=== PATIENT | female | born 1985 | race Caucasian/White ===

== ENCOUNTER 2016-09-13 19:28 | Observation (INO) | payer BC ==
[2016-09-13] MEDS ORDERED: NS 0.9% 1000 ML* 1,000 ML IV ONE (21:00)
[2016-09-13] MEDS ORDERED: Ondansetron INJ* 2 MG/ML VIAL IV ONE (21:00)
[2016-09-13] MEDS ORDERED: Morphine INJ* 4 MG/ML 1 ML CARPUJECT IV ONE (21:00)
[2016-09-13 21:18] LABS: Hematocrit 42 % (35-47); Hemoglobin 13.8 g/dl (12.0-16.0); Mean Corpuscular HGB Conc 33 g/dl (31-36); Mean Corpuscular Hemoglobin 29 pg (27-31); Mean Corpuscular Volume 90 fL (80-97); Mean Platelet Volume 10 um3 (7.4-10.4); Red Blood Count 4.71 10^6/ul (4.0-5.4); Red Cell Distribution Width 13 % (10.5-15); White Blood Count 10.7 10^3/ul (3.5-10.8)
[2016-09-13 21:30] LABS: ALT 56 U/L (7-52); AST 35 U/L (13-39); Albumin 4.4 g/dL (3.2-5.2); Alkaline Phosphatase 52 U/L (34-104); Amylase 23 U/L (29-103); Anion Gap 8 mmol/L (2-11); BUN/Creatinine Ratio 12.3 (8-20); Blood Urea Nitrogen 9 mg/dL (6-24); C Reactive Protein < 1.00 mg/L (< 5.00); CO2 Carbon Dioxide 28 mmol/L (22-32); Calcium 10.2 mg/dL (8.6-10.3); Chloride 104 mmol/L (101-111); EGFR African American 121.2 (>60); EGFR Non-African American 94.3 (>60); Globulin 2.7 g/dL (2-4); Glucose 114 mg/dL (70-100); Lipase 22 U/L (11.0-82.0); Potassium 3.6 mmol/L (3.5-5.0); Sodium 140 mmol/L (133-145); Total Protein 7.1 g/dL (6.4-8.9)
[2016-09-13] MEDS ORDERED: Famotidine IV* 10 MG/ML 2 ML (20 mg) IV SLOW PU ONE (22:48)
[2016-09-13] MEDS ORDERED: Iohexol 300* (CONTRAST) 10 ML SDV IV ONE (22:55)
--- NOTE | 2016-09-13 23:52 | ED ---
Abelardo Jimenez Billy, scribed for Stephan Chua MD on 09/13/16 at 2059 . Abdominal Pain/Female - HPI Summary HPI Summary: Patient is a 30 year-old female coming to [facility] [place] presenting with constant diffuse abdominal pain since yesterday. She states that pain will come in worsening waves, severity 8/10; otherwise pain severity 5/10. She states that she took milk of magnesia today at 1530 without improvement. General malaise, N/ V, without diarrhea. PSHx of cholecystectomy and chiqui-en-y gastric bypass (2014) . LMP 09/05/16. - History of Current Complaint Chief Complaint: EDAbdPain Stated Complaint: ABD PAIN,VOMITING Time Seen by Provider: 09/13/16 20:37 Hx Obtained From: Patient Hx Last Menstrual Period: 02/24/16 Onset/Duration: Gradual Onset, Lasting Hours, Still Present Timing: Constant Severity Initially: Moderate Severity Currently: Moderate Pain Intensity: 5 Pain Scale Used: 0-10 Numeric Location: Diffuse Radiates: No Aggravating Factor(s): Nothing Alleviating Factor(s): Nothing Associated Signs and Symptoms: Positive: Nausea, Vomiting, Other: - general malaise. Negative: Diarrhea Allergies/Adverse Reactions: Allergies Allergy/AdvReac Type Severity Reaction Status Date / Time No Known Allergies Allergy Verified 03/29/16 11:49 PMH/Surg Hx/FS Hx/Imm Hx Endocrine/Hematology History: Reports: Hx Anemia - POST , OK NOW Denies: Hx Diabetes, Hx Thyroid Disease Cardiovascular History: Denies: Hx Hypertension Respiratory History: Denies: Hx Asthma, Hx Chronic Obstructive Pulmonary Disease (COPD) GI History: Reports: Other GI Disorders - GASTRIC BYPASS 04/12/15 Denies: Hx Ulcer History: Denies: Hx Renal Disease Musculoskeletal History: Reports: Hx Tendonitis - IN BOTH HANDS DURING , OK NOW Sensory History: Reports: Hx Contacts or Glasses Denies: Hx Hearing Aid Opthamlomology History: Reports: Hx Contacts or Glasses Neurological History: Reports: Hx Headaches - ONLY DURING , OK NOW - Surgical History Surgery Procedure, Year, and Place: 11/2004 [facility] [facility] [place] 06/2013 REMOVAL OF WISDOM TEETH- [facility]. Gastric bypass - 04/2015 Hx Anesthesia Reactions: No Infectious Disease History: No Infectious Disease History: Denies: Hx Clostridium Difficile, Hx Hepatitis, Hx Human Immunodeficiency Virus (HIV), Hx of Known/Suspected MRSA, Hx Shingles, Hx Tuberculosis, Hx Known/ Suspected VRE, Hx Known/Suspected VRSA, History Other Infectious Disease, Traveled Outside the [place] in Last 30 Days - Family History Known Family History: Positive: Other - father with diverticular disase Negative: Diabetes - Social History Alcohol Use: Occasionally Alcohol Amount: 3-4 X PER YEAR Substance Use Type: Reports: None Substance Use Comment - Amount & Last Used: last night Smoking Status (MU): Former Smoker Type: Cigarettes Amount Used/How Often: 1 PPD FOR 6 YRS Length of Time of Smoking/Using Tobacco: 6 YRS Have You Smoked in the Last Year: Yes - MARIJ[place] ONLY Review of Systems Positive: Other - general malaise Positive: Abdominal Pain, Vomiting, Nausea. Negative: Diarrhea All Other Systems Reviewed And Are Negative: Yes Physical Exam - Summary Physical Exam Summary: VITAL SIGNS: Reviewed. GENERAL: Patient is an obese female who is lying comfortable in the stretcher. Patient is not in any acute respiratory distress. HEAD AND FACE: Normocephalic and atraumatic. EYES: PERRLA, EOMI x 2, No injected conjunctiva. EARS: Hearing grossly intact. Ear canals and tympanic membranes are WNL. MOUTH: Oropharynx within normal limits. NECK: Supple, trachea is midline, no adenopathy, no JVD. CHEST: Symmetric, no tenderness at palpation LUNGS: Clear to auscultation bilaterally. No wheezing or crackles. CVS: RRR,, S1 and S2 present, no murmurs or gallops appreciated. ABDOMEN: Soft, positive epigastric tenderness. . No signs of distention. Positive bowel sounds. No rebound no guarding, and no masses palpated. No abdominal bruit or pulsations. EXTREMITIES: FROM in all major joints, no edema, no cyanosis or clubbing. NEURO: Alert and oriented x 3. No acute neurological deficits. Speech is normal. SKIN: Dry and warm Triage Information Reviewed: Yes Vital Signs On Initial Exam: Initial Vitals Temp Pulse Resp BP Pulse Ox 98.4 F 100 20 146/85 100 09/13/16 19:30 09/13/16 19:30 09/13/16 19:30 09/13/16 19:30 09/13/16 19:30 Vital Signs Reviewed: Yes Diagnostics - Vital Signs Vital Signs Temp Pulse Resp BP Pulse Ox 09/13/16 19:30 98.4 F 100 20 146/85 100 - Laboratory Lab Results: Lab Results 09/13/16 09/13/16 09/13/16 Range/Units 20:10 20:10 20:10 WBC 10.7 (3.5-10.8) 10^3/ul RBC 4.71 (4.0-5.4) 10^6/ul Hgb 13.8 (12.0-16.0) g/dl Hct 42 (35-47) % MCV 90 (80-97) fL MCH 29 (27-31) pg MCHC 33 (31-36) g/dl RDW 13 (10.5-15) % Plt Count 232 (150-450) 10^3/ul MPV 10 (7.4-10.4) um3 Neut % (Auto) 66.5 (38-83) % Lymph % (Auto) 24.0 L (25-47) % Jennings % (Auto) 7.1 (1-9) % Eos % (Auto) 1.8 (0-6) % Baso % (Auto) 0.6 (0-2) % Absolute Neuts (auto) 7.1 (1.5-7.7) 10^3/ul Absolute Lymphs (auto) 2.6 (1.0-4.8) 10^3/ul Absolute Monos (auto) 0.8 (0-0.8) 10^3/ul Absolute Eos (auto) 0.2 (0-0.6) 10^3/ul Absolute Basos (auto) 0.1 (0-0.2) 10^3/ul Absolute Nucleated RBC 0.01 10^3/ul Nucleated RBC % 0.1 Sodium 140 (133-145) mmol/L Potassium 3.6 (3.5-5.0) mmol/L Chloride 104 (101-111) mmol/L Carbon Dioxide 28 (22-32) mmol/L Anion Gap 8 (2-11) mmol/L BUN 9 (6-24) mg/dL Creatinine 0.73 (0.51-0.95) mg/dL Est GFR ( Amer) 121.2 (>60) Est GFR (Non-Af Amer) 94.3 (>60) BUN/Creatinine Ratio 12.3 (8-20) Glucose 114 H (70-100) mg/dL Lactic Acid 1.3 (0.5-2.0) mmol/L Calcium 10.2 (8.6-10.3) mg/dL Total Bilirubin 0.60 (0.2-1.0) mg/dL AST 35 (13-39) U/L ALT 56 H (7-52) U/L Alkaline Phosphatase 52 (34-104) U/L C-Reactive Protein < 1.00 (< 5.00) mg/L Total Protein 7.1 (6.4-8.9) g/dL Albumin 4.4 (3.2-5.2) g/dL Globulin 2.7 (2-4) g/dL Albumin/Globulin Ratio 1.6 (1-3) Amylase 23 L (29-103) U/L Lipase 22 (11.0-82.0) U/L Beta HCG, Quant < 0.60 mIU/mL Result Diagrams: 09/13/16 20:10 09/13/16 20:10 Lab Statement: Any lab studies that have been ordered have been reviewed, and results considered in the medical decision making process. - CT abd/pel w CT Interpretation Completed By: Radiologist - See EMR* Abdominal Pain Fem Course/Dx - Course Course Of Treatment: Patient is a 30 year-old female coming to [facility] presenting with constant diffuse abdominal pain since yesterday. She states that pain will come in worsening waves, severity 8/10; otherwise pain severity 5/10. She states that she took milk of magnesia today at 1530 without improvement. General malaise, N/V, without diarrhea. PSHx of cholecystectomy and chqiui-en-y gastric bypass (2014). LMP 09/05/16. Bloodwork WNL. Patient was given IV fluids , Zofran for N/V, morphine for pain, and Pepcid. The patient is still awaiting results for CT abd/pel. She is hemodynamically stable, A&Ox3. She will be signed out to Dr. Morales for pending CT abd/pel for further workup and disposition. - Diagnoses Differential Diagnosis: Positive: Bowel Obstruction, Constipation, Diverticulitis, Irritable Bowel Syndrome, Renal Colic, Urinary Tract Infection Provider Diagnoses: Abdominal pain Discharge - Discharge Plan Condition: Stable Disposition: OTHER Discharge Disposition Comment: Signed out to Dr. Morales pending CT abd/pel. Referrals: Ifeoma Gutiérrez MD [Primary Care Provider] - The documentation as recorded by the Abelardo heck Billy accurately reflects the service I personally performed and the decisions made by me, Stephan Chua MD.
[2016-09-14] MEDS: HYDROmorphone INJ* 1 MG/ML CARPUJECT SYRINGE IV SLOW PU PRN ×3 (01:00→02:25)
[2016-09-14] MEDS: Ondansetron INJ* 2 MG/ML VIAL IV PRN ×3 (01:02→16:31)
[2016-09-14 01:07] LABS: Urine Bacteria Absent (Absent); Urine Bilirubin Negative (Negative); Urine Glucose Negative (Negative); Urine Nitrite Negative (Negative)
[2016-09-14] MEDS ORDERED: Ondansetron INJ* 2 MG/ML VIAL ONE (01:13)
[2016-09-14] MEDS ORDERED: HYDROmorphone INJ* 1 MG/ML CARPUJECT SYRINGE ONE (01:13)
[2016-09-14] MEDS ORDERED: HYDROmorphone INJ* 1 MG/ML CARPUJECT SYRINGE IV SLOW PU PRN (03:30)
--- NOTE | 2016-09-14 07:54 | RAD ---
INDICATION: Abdominal pain. Gastric bypass 2014. COMPARISON: CT March 28, 2016 TECHNIQUE: Axial source images were obtained from the hemidiaphragms to the symphysis pubis following administration of oral and intravenous contrast. 121 mL Omnipaque 300 was utilized. Coronal and sagittal reconstructed images were acquired. Lung bases: The lung bases are clear. Liver: The liver is normal in size. There are no masses. There is mild intrahepatic ductal dilatation. This could be related to postcholecystectomy state. Gallbladder: Cholecystectomy. Spleen: The spleen is normal in size. There are no masses. Pancreas: There is no focal pancreatic mass or ductal dilatation. Adrenal glands: There is no evidence of adrenal mass. Kidneys: The kidneys are normal in size and position. There are prompt nephrograms and there is prompt excretion bilaterally. There are no renal parenchymal masses. There is no evidence of nephrolithiasis. Adenopathy: There is no evidence of adenopathy by size criteria. Fluid collections: Smaller free fluid in the dependent portion of the pelvis. Vessels:There are no significant atherosclerotic changes involving the aorta. There is no focal aneurysm. The iliac vessels are normal in caliber. The IVC appears normal. GI tract: There is gastric Gabi-en-Y bypass surgery. There is mild dilatation of multiple small bowel loops which are fluid-filled. The colon is fluid-filled. The findings are likely related to an ileus. Pelvic organs: The uterus and adnexa appear normal Bladder: There are no bladder masses. Abdominal and pelvic soft tissues: The extraperitoneal abdominal and pelvic soft tissues appear normal.. Osseous structures: There are no acute osseous findings. Other: None IMPRESSION: 1. Postoperative change to include gastric Gabi-en-Y and cholecystectomy. Mild intrahepatic dilatation likely related to post closed study state. 2. Dilated and fluid-filled small bowel. There is also fluid in the right colon. There are no obstructive findings. There may be an ileus. 3. Small amount of free fluid. 4. Suggest follow-up abdominal series
--- NOTE | 2016-09-14 08:39 | RAD ---
INDICATION: Ileus COMPARISON: September 13, 2016 TECHNIQUE: Erect and supine views of the abdomen are submitted. FINDINGS: Bones: There are no acute bony findings. Soft tissues: The soft tissues appear normal. The psoas margins are sharp. Bowel gas pattern: Normal. There is residual CT contrast in the nondistended colon. Calcifications: There are no abnormal calcifications. Other: Postsurgical changes in the epigastric region IMPRESSION: NO ACUTE DIAGNOSTIC FINDINGS.
[2016-09-14] MEDS ORDERED: Acetaminophen TAB* 325 MG PO PRN (10:27)
[2016-09-14] MEDS ORDERED: Venlafaxine EXT RELEASE CAP* 75 MG PO SCH (11:00)
[2016-09-14] MEDS ORDERED: Metoclopramide IV* 5 MG/ML 2 ML VIAL ONE (13:46)
--- NOTE | 2016-09-14 13:52 | HP ---
ADMISSION HISTORY AND PHYSICAL: DATE OF ADMISSION: 09/14/16 LOCATION: This patient is in [facility], room 340. ATTENDING SURGEON: Dr. Duke Ghotra (dictated by Michelle Pierce NP) CHIEF COMPLAINT: Generalized abdominal pain. HISTORY OF PRESENT ILLNESS: The patient is a 30-year-old female, status post laparoscopic Gabi-en-Y gastric bypass by Dr. Ghotra, April 2015. Her weight loss has been about 150 pounds. On 09/11/16, she had the onset of what she describes as lower abdominal pressure and wondered if she had urinary tract infection; on September 12, she complained of abdominal "soreness" but was very busy at home and was not having any associated nausea or vomiting. Yesterday, her abdominal pain worsened and it was across the upper abdomen, left greater than right, and she felt very bloated ; she took milk of magnesia around 3:30 p.m. and at 5:30 p.m., vomited and presented to the emergency room. She states that about 2 weeks ago, she had the onset of upper respiratory symptoms with sore throat, cough, and sinus congestion. CAT scan of the abdomen and pelvis was done and it revealed dilated and fluid filled small bowel and fluid in the right colon and question of ileus. A followup abdominal x-ray this morning reveals contrast throughout the bowel and no acute diagnostic findings of obstruction. She has had 3 loose stools this morning and states that she is feeling much better and is not currently having any acute abdominal pain. She is urinating without difficulty. She feels thirsty and a little hungry. All of the above findings have been reviewed with Dr. Ghotra. PAST MEDICAL HISTORY: Clinically severe obesity. PAST SURGICAL HISTORY: Laparoscopic Gabi-en-Y gastric bypass, April 2015; laparoscopic reduction and repair of internal hernia, March 2016; D and C, 2003 ; wisdom tooth extraction. MEDICATIONS: 1. Omeprazole 20 mg p.o. daily. 2. Venlafaxine 75 mg p.o. daily. 3. Multivitamin. 4. Biotin. 5. Calcium supplements. ALLERGIES: No known drug allergies. FAMILY HISTORY: Significant for hypertension in her parents. No known bleeding tendencies, clotting disorders, or anesthesia complications. SOCIAL HISTORY: She is and has 4 children; she is a nonsmoker, denies the use of alcohol or other substances. REVIEW OF SYSTEMS: She denies any cardiac conditions or complaints, she denies any history of deep vein thrombosis or pulmonary embolism; she denies any shortness of breath; she is a nonsmoker; she denies any history of asthma or pneumonia; she denies any history of frequent urinary tract infections or kidney stones; she denies any bleeding tendencies; she denies any other gastrointestinal complaints other than as mentioned in history of present illness; she has bouts of anxiety and is on an antidepressant. Her last menstrual period was 09/05/16. She is up-to- date with pelvic and Pap smear. PHYSICAL EXAMINATION GENERAL SURVEY: The patient is a 30-year-old female, well-developed, well- nourished, in no acute distress. VITAL SIGNS: Height 66 inches, weight 200 pounds, body mass index 32. Temperature 97.9, tympanic; blood pressure 100/59; pulse 58 and regular; respiratory rate 16; O2 saturation on room air 98%. HEENT: Benign. NECK: Supple. No cervical lymphadenopathy. BACK: No CVA tenderness. LUNGS: Breath sounds bilaterally clear and equal. No wheezes or rhonchi. HEART: Regular rate and rhythm. No murmurs or rubs appreciated. ABDOMEN: Active bowel sounds, soft, and nondistended. Mildly tender in the upper abdomen without guarding or rebound tenderness. No ventral hernias. No obvious masses or organomegaly. PELVIC AND RECTAL: Exams deferred. EXTREMITIES: Warm without edema or skin ulceration. NEUROLOGIC: Alert and oriented x3. Steady gait. SKIN: Warm, dry, intact. IMPRESSION: Abdominal pain, possible small bowel obstruction that is resolving. PLAN: Clear liquid diet, continue IV fluids, ambulate, and consider discharge later today depending [place] [id number]/[facility] #: [id number] MTDD
[2016-09-14] MEDS ORDERED: Metoclopramide IV* 5 MG/ML 2 ML VIAL IV PRN (14:05)
--- NOTE | 2016-09-14 14:54 | PN ---
Progress Note - Progress Note Note: S: Patient seen re: vomiting (mucus, saliva) earlier this pm after starting clear liquids and also having rec'd a dose of Dilaudid ~ 45 min earlier. She had passed a couple of stools this am, but none since (or any flatus). At the present time she denies pain or nausea (rec'd both Zofran and Reglan). O: Appears comfortable Abd: non-distended; +BS (normal); soft; nontender to palp CT and AXR from this am reviewed A: SBO, appears to be resolving, but possibly introduced po intake a bit too quickly (as well as Dilaudid contributing to N/V) P: will d/w Dr. Ghotra; sips clears; cont IVF; re-eval in am w/ advance of diet if clinically indicated
--- NOTE | 2016-09-14 16:55 | PN ---
Progress Note - Progress Note SOAP: Subjective: Chart reviewed. Her episodes of nausea and dry heaves continue. No flatus/BM. No abd pain. No known sick contacts. Objective: AVSS Abd: soft ND and NT. CT c/w ileus; ?thickened SB loop in LLQ. AXR shows contrast in colon. Assessment: Enteritis with ileus seems most likely. Plan: Bowel rest, IVF, antiemetics. Reassess in AM.
[2016-09-14] MEDS ORDERED: DiMENhydriNATE IV* 50 MG/ML VIAL ONE (18:23)
[2016-09-14] MEDS: DiMENhydriNATE IV* 50 MG/ML VIAL IV PUSH PRN (18:25)
[2016-09-15] MEDS: DiMENhydriNATE IV* 50 MG/ML VIAL IV PUSH PRN (01:33)
[2016-09-15] MEDS ORDERED: Morphine INJ* 4 MG/ML 1 ML CARPUJECT ONE (01:50)
[2016-09-15] MEDS ORDERED: Morphine INJ* 4 MG/ML 1 ML CARPUJECT IV PRN ×2 (01:51→04:09)
[2016-09-15] MEDS ORDERED: Morphine INJ* 4 MG/ML 1 ML CARPUJECT IV ONE (02:00)
[2016-09-15] MEDS: Ondansetron INJ* 2 MG/ML VIAL IV PRN ×2 (02:06→09:03)
[2016-09-15] MEDS ORDERED: Ketorolac INJ* 15 MG/ML 1 ML VIAL IV PUSH ONE (02:21)
[2016-09-15 02:28] LABS: Hematocrit 39 % (35-47); Hemoglobin 12.7 g/dl (12.0-16.0); Mean Corpuscular HGB Conc 32 g/dl (31-36); Mean Corpuscular Hemoglobin 29 pg (27-31); Mean Corpuscular Volume 90 fL (80-97); Mean Platelet Volume 9 um3 (7.4-10.4); Red Blood Count 4.34 10^6/ul (4.0-5.4); Red Cell Distribution Width 13 % (10.5-15); White Blood Count 5.6 10^3/ul (3.5-10.8)
[2016-09-15] MEDS ORDERED: Al Hydrox/Mg Hydrox/Simet LIQ* 30 ML UDC PO ONE (02:38)
[2016-09-15 02:42] LABS: BUN/Creatinine Ratio 9.6 (8-20); Calcium 9.2 mg/dL (8.6-10.3); EGFR African American 121.2 (>60); EGFR Non-African American 94.3 (>60); Potassium 3.6 mmol/L (3.5-5.0)
[2016-09-15] MEDS ORDERED: Pantoprazole IV* 40 MG IV SCH (03:00)
[2016-09-15] MEDS: Morphine INJ* 4 MG/ML 1 ML CARPUJECT IV PRN ×2 (04:19→09:02)
[2016-09-15] MEDS ORDERED: DiMENhydriNATE IV* 50 MG/ML VIAL IV PUSH ONE (05:00)
[2016-09-15] MEDS ORDERED: Ketorolac INJ* 15 MG/ML 1 ML VIAL IV PUSH PRN (07:10)
--- NOTE | 2016-09-15 07:13 | PN ---
Progress Note - Progress Note Note: Went to see patient at the request of Dr. Ghotra. Patient with intractable N/V and left flank pain 8/10 in severity. Morphine of little benefit and she does not want Dilaudid. IV toradol given. Pain improved. N/V improved with dramamine.
--- NOTE | 2016-09-15 09:11 | RAD ---
INDICATION: Abdominal and back pain. Intractable vomiting. Previous gastric bypass and hernia repair. COMPARISON: September 13, 2016 and March 28, 2016 CT exams. TECHNIQUE: Multidetector CT images were obtained from the lung bases to the ischial tuberosities. Evaluation of the viscera is limited without IV contrast. Multiplanar reformation. REPORT: Enteric contrast in the bowel and minimal residual pyelographic phase contrast is from the September 13, 2016 CT. Unremarkable visualized inferior thorax. The liver, gallbladder, pancreas, and spleen are unremarkable. Postsurgical change of gastric bypass. No CT abnormality of the upper GI, small bowel, appendix, or colon evident. Physiologic range volume of free pelvic fluid. Negative for free air or hernias. Normal adrenal glands. 1 mm nonobstructing calyceal stone lower pole RIGHT kidney. Negative for RIGHT hydronephrosis. Moderate LEFT hydroureteronephrosis is traced to a 7 mm maximum dimension stone in the distal ureter approximate 1.5 cm from the ureterovesicular junction. Associated mild periureteral inflammatory stranding. Largely decompressed urinary bladder without gross abnormality. Unremarkable anteverted uterus and adnexal regions. Solitary RIGHT para midline pelvic surgical clip. Negative for lymphadenopathy. Normal diameter abdominal aorta and iliac arteries. Physiologic distention of the IVC. Negative for suspicious osseous lesions. IMPRESSION: Moderate LEFT hydroureteronephrosis is traced to a 7 mm maximum dimension distal ureteral stone approximate 1.5 cm from the ureterovesicular junction. Results discussed with Dr. Ghotra 09/15/2016 8:55 AM EST
[2016-09-15] MEDS ORDERED: cefTRIAXone VIAL(*) 1,000 MG in NS 0.9% 50 ML* 50 ML IVPB ONE (09:30)
[2016-09-15] MEDS ORDERED: Gentamicin ADULT (*) 160 MG in NS 0.9% 100 ML* 100 ML IVPB ONE (09:30)
--- NOTE | 2016-09-15 09:30 | PN ---
Progress Note - Progress Note SOAP: Subjective: She had severe L flank pain last night with ongoing N/V prompting another CT abd /pel non-contrast. This showed L ureteral stone with hydronephrosis. She has control of her pain with morphine and control of N/V but feels it coming back. She's been walking the halls. Objective: Vital Signs Temp 97.9 F 09/15/16 07:21 Pulse 54 09/15/16 07:21 Resp 16 09/15/16 09:02 BP 127/73 09/15/16 07:21 Pulse Ox 99 09/15/16 07:21 Intake & Output 09/14/16 09/15/16 09/15/16 18:59 06:59 18:59 Intake Total 1850 1320 Output Total 630 200 Balance 1220 1120 Intake: IV Fluids 1500 1320 LR 720 IVPB 30 Oral 320 0 Output: Urine 500 200 Emesis 130 Other: # Bowel Movements 2 Estimated Stool Amount Large Abd: soft, ND, NT. CT findings as above; no dilated SB and contrast in colon. Assessment: Ileus resolved, appears to be due to L nephrolithiasis. Plan: Urology consulted. Situation d/w pt. She will go to OR for stone removal. Ok to discharge after from surgical POV.
[2016-09-15] MEDS ORDERED: fentaNYL* 50 MCG/ML 2 ML VIAL (100 MCG VIAL) ONE (09:35)
[2016-09-15] MEDS ORDERED: Midazolam* 1 MG/ML 2 ML VIAL (2 MG) ONE ×2 (09:35→09:42)
[2016-09-15] MEDS ORDERED: Iohexol 180 (CONTRAST) 10 ML SDV IV ONE (09:38)
[2016-09-15] MEDS ORDERED: Ondansetron INJ* 2 MG/ML VIAL ONE (10:00)
[2016-09-15] MEDS ORDERED: Lidocaine 2% PF * 5 ML VIAL ONE (10:00)
[2016-09-15] MEDS ORDERED: Dexamethasone IV* 4 MG/ML 1 ML (4 MG) ONE (10:00)
[2016-09-15] MEDS ORDERED: Propofol* 10 MG/ML 20 ML BTL IV PUSH ONE (10:00)
[2016-09-15] MEDS ORDERED: HYDROmorphone INJ* 1 MG/ML CARPUJECT SYRINGE IV PRN (11:01)
[2016-09-15 12:15] VITALS: BP 133/93
--- NOTE | 2016-09-15 13:52 | OP ---
DATE OF OPERATION: 09/15/16 - ROOM #341 DATE OF : [birth year] - AGE: 30 years, female. SURGEON: Dallin Metzger MD ANESTHESIOLOGIST: Dr. Ron. ANESTHESIA: General. PRE-OP DIAGNOSES: 1. Left hydronephrosis. 2. Calculus left ureter. POST-OP DIAGNOSES: 1. Left hydronephrosis. 2. Calculus left ureter. OPERATIVE PROCEDURES: Cystoscopy, left retrograde pyelogram, left ureteroscopy , laser lithotripsy of left ureteral calculus and removal of calculus fragments , and left stent insertion. COMPLICATIONS: None. POSTOPERATIVE CONDITION: Stable. STENT USED: 6-[place]se stent left ureter. INDICATIONS: Sarita Boateng is a 30-year-old lady who was admitted for abdominal pain and nausea. She was noted to have an obstructing calculus in the left distal ureter. I discussed the management options with her in detail, including options of medical expulsive therapy, and she opted for, and is now being brought in, for left ureteroscopy, possible laser and stent insertion. OPERATIVE FINDINGS: 1. Normal-appearing bladder. 2. A 7 to 8 mm calculus impacted in left distal ureter with surrounding edema and inflammation and left hydronephrosis. POSTOPERATIVE CONDITION: Stable. DESCRIPTION OF PROCEDURE: After induction of general anesthesia, the patient was placed in dorsal lithotomy position. Sequential compression devices were in place and functioning. Initial cystoscopy revealed a normal-appearing bladder. A guidewire was introduced into the left ureter. Retrograde pyelogram revealed fullness of the left collecting system consistent with the history of obstruction. A 6-[place]orese semirigid ureteroscope was introduced and advanced under direct vision about 2 to 3 cm above the ureterovesical junction, 8 to 9 mm calculus was noted to be impacted with surrounding edema and inflammation. Using a 550 micron holmium laser this was carefully fragmented into multiple pieces and all of the pieces were individually removed using grasping forceps. A 6-[place]orese stent was introduced and positioned under fluoroscopy with good proximal and distal positioning obtained. The patient tolerated the procedure satisfactorily and was transferred back to the recovery area in stable condition. CC: Dr. Ifeoma Gutiérrez; Dallin Metzger MD; Dr. Duke Ghotra * [id number]/[facility] #: [id number] [facility]
--- NOTE | 2016-09-17 14:21 | RAD ---
INDICATION: Left ureteral calculus, stent placement. COMPARISON: Comparison is made with a prior CT of the abdomen and pelvis of the same date. TECHNIQUE: 6 seconds of intermittent fluoroscopic guidance were provided and 6 spot films of the abdomen were centered on the left side. FINDINGS: There is partial opacification of the left renal collecting system. Subsequently there is placement of a double-J stent catheter on the left side which demonstrates normal course. IMPRESSION: INTRAOPERATIVE CONTROL FILMS. CPT II Codes: 6045F
--- NOTE | 2016-11-10 15:19 | DS ---
DISCHARGE SUMMARY: DATE OF ADMISSION: 09/14/16 DATE OF DISCHARGE: 09/15/16 DISCHARGE DIAGNOSES: 1. Kidney stones. 2. Abdominal pain/back pain. 3. History of gastric bypass. HOSPITAL COURSE: This 30-year-old female was admitted to the emergency room for abdominal pain, generalized and she had a CT scan of the abdomen and pelvis which showed dilated small bowel and right colon with findings suspicious for ileus. Subsequently, the patient's followup x-rays on 09/14 showed no evidence of obstruction or ileus and she developed severe left-sided back pain and so CT scan of the abdomen and pelvis was done in the staple shear operator on 09/15/[address] scan showed a moderate left hydronephrosis with a [address] Metzger took the patient to the operating room and see his report. The patient subsequently was discharged from recovery room by Dr. Metzger with instructions from his service. The patient's followup is as per Dr. Metzger. CC: Dr. Gutiérrez* [id number]/[facility] #: [id number] MTDBaldo
--- NOTE | 2016-11-16 23:14 | ED ---
Lon Jimenez Benjamin, scribed for Vikas Morales MD on 09/14/16 at 0059 . Progress - Progress Note Progress Note: Signout pt from Dr. Chua. Waiting for CT results. - Results/Orders Results/Orders: CT A/P W: status Gabi-en-Y gastric bypass surgery and cholecystectomy. small bowel up to 5.1cm along with a small bowel feces sign with thick-walled collapsed loops of small bowel within the LLQ that appears to be the point of obstruction, possibly due to enteritis. In addition, there is stranding of the central mesentery. Recommend surgical consultation and follow up. Course/Dx - Diagnoses Provider Diagnoses: S/P gastric bypass - Provider Notifications Discussed Care Of Patient With: Dr. Ward (surgery) @00:55. The documentation as recorded by the Lon heck Benjamin accurately reflects the service I personally performed and the decisions made by Andrew snell David, MD.
== END 2016-09-15 12:00 | disposition home or self-care (01) ==
LOC: ED 19:28 → SSU 09-14 01:27
PROVIDERS: ADMIT Surgery; ATTEND Surgery
PROC: 0TC78ZZ Extirpation of Matter from Left Ureter, Via Natural or Artificial Opening Endoscopic (ICD-10-PCS; principal; 2016-09-14)
PROC: BT1FZZZ Fluoroscopy of Left Kidney, Ureter and Bladder (ICD-10-PCS; 2016-09-14)
DX: N13.2 Hydronephrosis with renal and ureteral calculous obstruction (principal); R11.2 Nausea with vomiting, unspecified
CPT/HCPCS: 36415; 74020; 74176; 74177; 74420; 80048; 80053; 81003; 81015; 82150; 82365; 83605; 83690; 84702; 85025; 86140; 88300; 96361; 96374; 96375; 96376; 99285; A9270-GY; C1876; G0378; J0696; J1100; J1170; J1240; J1580; J1885; J2250; J2270; J2405; J2704; J2765; J3010; Q9967

== ENCOUNTER 2017-01-14 10:52 | Emergency (ER) | payer BC ==
[2017-01-14 11:17] VITALS: BP 160/80
[2017-01-14] MEDS ORDERED: Acetaminophen TAB* 325 MG PO ONE (12:10)
[2017-01-14] MEDS ORDERED: Ondansetron ODT TAB* 4 MG PO ONE (12:10)
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
== END 2017-01-14 13:23 | disposition home or self-care (01) ==
LOC: UCEAST 10:52
DX: S05.12XA Contusion of eyeball and orbital tissues, left eye, initial encounter (principal); S09.90XA Unspecified injury of head, initial encounter; Y04.2XXA Assault by strike against or bumped into by another person, initial encounter; Y93.9 Activity, unspecified; Y92.89 Other specified places as the place of occurrence of the external cause; R11.2 Nausea with vomiting, unspecified; R51 Headache; Z98.84 Bariatric surgery status; F12.90 Cannabis use, unspecified, uncomplicated; Z87.891 Personal history of nicotine dependence
CPT/HCPCS: 70450; 70480; 99212; A9270-GY; G0463

== ENCOUNTER → 2017-05-22 09:28 | Emergency (ER) | payer BC ==
[~2017-05-22 09:28] MED LIST: Iohexol 300* (CONTRAST) 10 ML SDV IV ONE; Ketorolac INJ* 30 MG/ML 1 ML VIAL IV ONE; Metoclopramide IV* 5 MG/ML 2 ML VIAL IV ONE; NS 0.9% 1000 ML* 1,000 ML IV ONE; Ondansetron INJ* 2 MG/ML VIAL IV ONE
--- NOTE | 2017-05-22 11:12 | RAD ---
Indication: Nausea and vomiting Flat and upright views of the abdomen demonstrates moderately distended loops of small bowel in the left upper quadrant. Surgical clips are noted in the pelvis. IMPRESSION: Nonspecific dilatation of small bowel in the left upper quadrant. Adynamic ileus is not excluded.
[2017-05-22 11:18] LABS: Hematocrit 42 % (35-47); Hemoglobin 14.1 g/dl (12.0-16.0); Mean Corpuscular HGB Conc 34 g/dl (31-36); Mean Corpuscular Hemoglobin 33 pg (27-31); Mean Corpuscular Volume 98 fL (80-97); Mean Platelet Volume 8 um3 (7.4-10.4); Red Cell Distribution Width 13 % (10.5-15); White Blood Count 5.5 10^3/ul (3.5-10.8)
[2017-05-22 11:30] LABS: ALT 120 U/L (7-52); AST 121 U/L (13-39); Albumin 4.4 g/dL (3.2-5.2); Alkaline Phosphatase 66 U/L (34-104); Anion Gap 9 mmol/L (2-11); BUN/Creatinine Ratio 9.7 (8-20); Blood Urea Nitrogen 7 mg/dL (6-24); C Reactive Protein < 1.00 mg/L (< 5.00); CO2 Carbon Dioxide 26 mmol/L (22-32); Calcium 9.4 mg/dL (8.6-10.3); Chloride 101 mmol/L (101-111); EGFR African American 122.3 (>60); EGFR Non-African American 95.1 (>60); Globulin 2.8 g/dL (2-4); Glucose 89 mg/dL (70-100); Lipase 46 U/L (11.0-82.0); Magnesium 1.9 mg/dL (1.9-2.7); Potassium 3.9 mmol/L (3.5-5.0); Sodium 136 mmol/L (133-145); Total Protein 7.2 g/dL (6.4-8.9)
[2017-05-22 14:15] LABS: Urine Bacteria Absent (Absent); Urine Bilirubin 1+ (Negative); Urine Glucose Negative (Negative); Urine Nitrite Negative (Negative)
--- NOTE | 2017-05-22 15:49 | RAD ---
Indication: Nausea and hematuria. CT of the abdomen and pelvis was performed without oral or IV contrast administration. Coronal and sagittal reconstructed images were obtained. The lung bases demonstrate no pleural fluid, nodules or masses. Heart is of normal size without evidence of pericardial effusion. The liver is normal in size. No focal lesions or intrahepatic duct dilatation is noted. The gallbladder demonstrates patient to be status post cholecystectomy. The spleen is normal in size. No adrenal lesions are noted. The patient status post gastric bypass surgery. No dilated loops of bowel are noted. Pancreas demonstrates no mass or pancreatic duct dilatation. The kidneys demonstrate no hydronephrosis. No retroperitoneal lymphadenopathy is noted. Aorta and inferior vena cava are unremarkable. In the midline just above the umbilicus there appears to be an intussusception noted. No evidence of bowel obstruction is noted however. No dilated loops of bowel are noted. The colon is filled with stool. CT of the pelvis demonstrates uterus and ovaries to be unremarkable. No hernias are noted. No dilated loops of bowel are noted. IMPRESSION: There appears to be a intussusception noted in the mid abdomen just above the level of the umbilicus. No bowel obstruction is noted. Patient is status post cholecystectomy and gastric bypass surgery. No evidence of obstructive uropathy. Findings discussed with Dr. Chua at 1545 hours
--- NOTE | 2017-05-22 19:04 | ED ---
Marcelino Jimenez Angela, scribed for Stephan Chua MD on 05/22/17 at 1038 . Abdominal Pain/Female - HPI Summary HPI Summary: This pt is a 31 y/o female [facility] c/o retching and dehydration since yesterday. Pt reports she had a couple of glasses of wine 2 days ago. 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 Pt notes she didn't get to drink enough water all day. At the end of the day she felt dehydrated and started retching. At home yesterday, pt reports she couldn't keep anything down (water or food). Last night she states she was shaking, sweating and felt her heart racing. Pt c/o abdominal discomfort secondary to retching. Pt also reports headache and dizziness. She denies fever, visual changes, neck pain. PMHx: gastric bypass (04/12/15). Pt has lost 150 lbs since her surgery. - History of Current Complaint Chief Complaint: EDAbdPain Stated Complaint: SHAKEY/VOMITTING Time Seen by Provider: 05/22/17 10:23 Hx Obtained From: Patient Hx Last Menstrual Period: 12/31/16 Onset/Duration: Lasting Hours Timing: Hours Pain Intensity: 6 Location: Diffuse Radiates: No Character: Other: - discomfort Aggravating Factor(s): Nothing Alleviating Factor(s): Nothing Associated Signs and Symptoms: Positive: Diaphoresis, Dizzy, Nausea, Other: - shaking, heart racing, retching. Negative: Fever, Back Pain, Vomiting Allergies/Adverse Reactions: Allergies Allergy/AdvReac Type Severity Reaction Status Date / Time No Known Allergies Allergy Verified 05/22/17 09:31 Home Medications: Home Medications Biotin [Biotin Maximum Strength] 10,000 mcg PO DAILY 05/22/17 [History Confirmed 05/22/17] Calcium Carbonate CHEW TAB* [Tums*] 1,000 mg PO BID PRN 05/22/17 [History Confirmed 05/22/17] Multivitamins/Minerals TAB* [Theragran/minerals TAB*] 1 tab PO DAILY 05/22/17 [ History Confirmed 05/22/17] PMH/Surg Hx/FS Hx/Imm Hx Endocrine/Hematology History: Reports: Hx Anemia - POST , OK NOW Denies: Hx Diabetes, Hx Thyroid Disease Cardiovascular History: Denies: Hx Hypertension Respiratory History: Denies: Hx Asthma, Hx Chronic Obstructive Pulmonary Disease (COPD) GI History: Reports: Hx Gastroesophageal Reflux Disease, Other GI Disorders - GASTRIC BYPASS 04/12/15 Denies: Hx Ulcer History: Reports: Hx Kidney Stones - LEFT RENAL CALCULI-LAZER LITHO Denies: Hx Renal Disease Musculoskeletal History: Reports: Hx Tendonitis - IN BOTH HANDS DURING , OK NOW Sensory History: Reports: Hx Contacts or Glasses Denies: Hx Hearing Aid Opthamlomology History: Reports: Hx Contacts or Glasses Neurological History: Denies: Hx Headaches Psychiatric History: Reports: Hx Anxiety - Surgical History Surgery Procedure, Year, and Place: 11/2004 D&C- [facility]. 06/2013 REMOVAL OF WISDOM TEETH- [facility]. Gastric bypass - 04/2015. Hernia repair March 2016 Hx Anesthesia Reactions: No Infectious Disease History: No Infectious Disease History: Denies: Hx Clostridium Difficile, Hx Hepatitis, Hx Human Immunodeficiency Virus (HIV), Hx of Known/Suspected MRSA, Hx Shingles, Hx Tuberculosis, Hx Known/ Suspected VRE, Hx Known/Suspected VRSA, History Other Infectious Disease, Traveled Outside the [place] in Last 30 Days - Family History Known Family History: Positive: Hypertension, Other - father with diverticular disase Negative: Diabetes - Social History Alcohol Use: Occasionally Alcohol Amount: 3-4 X PER YEAR Substance Use Type: Reports: None, Marijuana Substance Use Comment - Amount & Last Used: x 1 week Smoking Status (MU): Former Smoker Type: Cigarettes Amount Used/How Often: 1 PPD FOR 6 YRS Length of Time of Smoking/Using Tobacco: 6 YRS Have You Smoked in the Last Year: Yes - MARIJUANA ONLY Review of Systems Positive: Skin Diaphoresis, Other - dehydration. Negative: Fever, Chills Eyes: Negative ENT: Negative Positive: Other - heart racing Respiratory: Negative Positive: Abdominal Pain - discomfort, Nausea - retching. Negative: Vomiting Genitourinary: Negative Musculoskeletal: Negative Neurological: Other - dizziness Positive: Headache All Other Systems Reviewed And Are Negative: Yes Physical Exam - Summary Physical Exam Summary: VITAL SIGNS: Reviewed. GENERAL: Patient is a well-developed and nourished female who is lying comfortable in the stretcher. Patient is not in any acute respiratory distress. HEAD AND FACE: No signs of trauma. No ecchymosis, hematomas or skull depressions. No sinus tenderness. EYES: PERRLA, EOMI x 2, No injected conjunctiva, no nystagmus. EARS: Hearing grossly intact. Ear canals and tympanic membranes are within normal limits. MOUTH: Oropharynx within normal limits. Lips are dry. Oral mucosa is dry. NECK: Supple, trachea is midline, no adenopathy, no JVD, no carotid bruit, no c- spine tenderness, neck with full ROM. CHEST: Symmetric, no tenderness at palpation LUNGS: Clear to auscultation bilaterally. No wheezing or crackles. CVS: Regular rate and rhythm, S1 and S2 present, no murmurs or gallops appreciated. ABDOMEN: Soft, non-tender, overweight. No signs of distention. No rebound no guarding, and no masses palpated. Bowel sounds are normal. EXTREMITIES: FROM in all major joints, no edema, no cyanosis or clubbing. NEURO: Alert and oriented x 3. No acute neurological deficits. Speech is normal and follows commands. SKIN: Dry and warm Triage Information Reviewed: Yes Vital Signs On Initial Exam: Initial Vitals Temp Pulse Resp BP Pulse Ox 98.1 F 82 16 158/80 100 05/22/17 09:31 05/22/17 09:31 05/22/17 09:31 05/22/17 09:31 05/22/17 09:31 Vital Signs Reviewed: Yes - [place] Coma Scale Coma Scale Total: 15 Diagnostics - Vital Signs Vital Signs Temp Pulse Resp BP Pulse Ox 05/22/17 10:04 87 98 05/22/17 10:02 140/85 05/22/17 09:31 98.1 F 82 16 158/80 100 - Laboratory Lab Results: Lab Results 05/22/17 05/22/17 05/22/17 Range/Units 11:00 11:00 13:50 WBC 5.5 (3.5-10.8) 10^3/ul RBC 4.30 (4.0-5.4) 10^6/ul Hgb 14.1 (12.0-16.0) g/dl Hct 42 (35-47) % MCV 98 H (80-97) fL MCH 33 H (27-31) pg MCHC 34 (31-36) g/dl RDW 13 (10.5-15) % Plt Count 212 (150-450) 10^3/ul MPV 8 (7.4-10.4) um3 Neut % (Auto) 56.9 (38-83) % Lymph % (Auto) 29.1 (25-47) % Bradley % (Auto) 11.6 H (1-9) % Eos % (Auto) 0.9 (0-6) % Baso % (Auto) 1.5 (0-2) % Absolute Neuts (auto) 3.1 (1.5-7.7) 10^3/ul Absolute Lymphs (auto) 1.6 (1.0-4.8) 10^3/ul Absolute Monos (auto) 0.6 (0-0.8) 10^3/ul Absolute Eos (auto) 0.1 (0-0.6) 10^3/ul Absolute Basos (auto) 0.1 (0-0.2) 10^3/ul Absolute Nucleated RBC 0 10^3/ul Nucleated RBC % 0.1 Sodium 136 (133-145) mmol/L Potassium 3.9 (3.5-5.0) mmol/L Chloride 101 (101-111) mmol/L Carbon Dioxide 26 (22-32) mmol/L Anion Gap 9 (2-11) mmol/L BUN 7 (6-24) mg/dL Creatinine 0.72 (0.51-0.95) mg/dL Est GFR ( Amer) 122.3 (>60) Est GFR (Non-Af Amer) 95.1 (>60) BUN/Creatinine Ratio 9.7 (8-20) Glucose 89 (70-100) mg/dL Calcium 9.4 (8.6-10.3) mg/dL Magnesium 1.9 (1.9-2.7) mg/dL Total Bilirubin 1.70 H (0.2-1.0) mg/dL AST 121 H (13-39) U/L ALT 120 H (7-52) U/L Alkaline Phosphatase 66 (34-104) U/L C-Reactive Protein < 1.00 (< 5.00) mg/L Total Protein 7.2 (6.4-8.9) g/dL Albumin 4.4 (3.2-5.2) g/dL Globulin 2.8 (2-4) g/dL Albumin/Globulin Ratio 1.6 (1-3) Lipase 46 (11.0-82.0) U/L Beta HCG, Quant < 0.60 mIU/mL Urine Color Teagan Urine Appearance Clear Urine pH 6.0 (5-9) Ur Specific [place] 1.031 H (1.010-1.030) Urine Protein 2+(100 mg/dl) H (Negative) Urine Ketones 1+ H (Negative) Urine Blood Negative (Negative) Urine Nitrate Negative (Negative) Urine Bilirubin 1+ H (Negative) Urine Urobilinogen Positive H (Negative) Ur Leukocyte Esterase Negative (Negative) Urine WBC (Auto) Trace(0-5/hpf) (Absent) Urine RBC (Auto) 1+(3-5/hpf) H (Absent) Ur Squamous Epith Cells Present H (Absent) Urine Bacteria Absent (Absent) Hyaline Casts Present H (Absent) Urine Glucose Negative (Negative) Result Diagrams: 05/22/17 11:00 05/22/17 11:00 Lab Statement: Any lab studies that have been ordered have been reviewed, and results considered in the medical decision making process. - Radiology Abdomen XR Xray Interpretation: Positive (See Comments) - IMPRESSION: Nonspecific dilatation of small bowel in the left upper quadrant. A dynamic ileus is not excluded. ED physician has reviewed this radiology report and agrees. Radiology Interpretation Completed By: Radiologist - CT Abd/Pel CT w/o contrast CT Interpretation: Positive (See Comments) - IMPRESSION: There appears to be a intussusception noted in the mid abdomen just above the level of the umbilicus. No bowel obstruction is noted. Patient is status post cholecystectomy and gastric bypass surgery. No evidence of obstructive uropathy. ED physician has reviewed this radiology report and agrees. CT Interpretation Completed By: Radiologist Abdominal Pain Fem Course/Dx - Course Course Of Treatment: This pt is a 31 y/o female [facility]/o retching and dehydration since yesterday. Pt reports she had a couple of glasses of wine 2 days ago. 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 Pt notes she didn't get to drink enough water all day. At the end of the day she felt dehydrated and started retching. At home yesterday, pt reports she couldn't keep anything down (water or food). Last night she states she was shaking, sweating and felt her heart racing. Pt c/o abdominal discomfort secondary to retching. Pt also reports headache and dizziness. She denies fever, visual changes, neck pain. PMHx: gastric bypass (04/12/15). Pt has lost 150 lbs since her surgery. At 1645 , Dr. Dee came to see the pt and requested I order an abdominal/pelvis CT with contrast and upper GI/small bowel XR. Test results w/o any significant abnormalities except increased LFTs. UA is contaminated. Abdomen XR shows nonspecific dilatation of small bowel in the left upper quadrant. A dynamic ileus is not excluded. In the ED course, the pt was given with IV fluids, toradol, Zofran and reglan for nausea and vomiting. Pt reports feeling better but nausea has not resolved. She denies abdominal pain. In the physical exam pt has no abdominal pain. I discussed the case with Dr. Ghotra who recommended an abdomen/pelvis CT to rule out kidney stone since in the past she has had this presentation and was diagnosed with kidney stone. The non-contrasted CT shows intussusception and at this time I discussed the case with Dr. Dee who recommended I do a GI series, although we are unable to do at this time. Therefore, he recommends to do an abdominal/pelvis CT with contrast. Pt is stable and has no other complaints except for nausea with no vomiting. Pt is drinking contrast. Pt will be signed out to Dr. Guerrero, to follow up on CT results and contact Dr. Dee. Pt is hemodynamically stable, alert and oriented x3. - Diagnoses Differential Diagnosis: Positive: Bowel Obstruction, Constipation, Diverticulitis, Pancreatitis, Renal Colic, Urinary Tract Infection Provider Diagnoses: Abdominal pain, Intussusception - Provider Notifications Discussed Care Of Patient With: Luke Dee Time Discussed With Above Provider: 14:34 Instructed by Provider To: Other - I discussed the case with Dr. Dee. He will come see the pt in the ED. 1503 - I spoke to Dr. Ghotra. He recommends a non- contrast abd/pel CT to rule out kidney stones. Discharge - Discharge Plan Condition: Stable Disposition: OTHER Discharge Disposition Comment: signed out to Dr. Guerrero, pending dispo, awaiting Abd/Pel CT w/ contrast Referrals: Ifeoma Gutiérrez MD [Primary Care Provider] - The documentation as recorded by the Marcelino heck Angela accurately reflects the service I personally performed and the decisions made by me, Stephan Chua MD.
--- NOTE | 2017-05-22 20:12 | RAD ---
INDICATION: Abdominal pain. Vomiting. History of intussusception on prior CT. Post gastric bypass April 2015 and hernia repair March 2016. Post cholecystectomy. COMPARISON: Noncontrast CT of the same date and September 15, 2016 CT. TECHNIQUE: Multidetector CT images were obtained from the lung bases to the ischial tuberosities with 127 mL Omnipaque 300 IV and oral contrast. Multiplanar reformation. REPORT: Unremarkable visualized inferior thorax. Mild focal fatty infiltration at the LEFT medial hepatic segment. No suspicious focal hepatic lesions. Post cholecystectomy. Negative for biliary dilatation. Unremarkable pancreas and spleen. Postsurgical change of Gabi-en-Y gastric bypass. Previously noted suggestion of potential small bowel intussusception at the midline midabdomen is no longer evident. Enteric contrast extends to the rectum. No CT abnormality of the small bowel. Unremarkable terminal ileum. Unremarkable diminutive medially extending appendix. Contiguous mild mural thickening of the colon from the rectum through the splenic flexure with partial loss of the normal house for pattern of the colon. No appreciable perienteric inflammatory change. No skip areas. Negative for ascites or free air. Small fat-containing umbilical hernia without inflammatory change. Normal adrenal glands. Unremarkable kidneys with symmetric nephrograms and pyelograms. Unremarkable nondilated ureters. Largely decompressed urinary bladder without suspicious finding. Unremarkable anteverted uterus and adnexal regions. Negative for lymphadenopathy. Normal diameter abdominal aorta and iliac arteries. Physiologic distention of the IVC. No suspicious focal osseous lesions evident. Negative for sacroiliac joint arthropathy. IMPRESSION: 1. Previous suggestion of small bowel intussusception no longer visualized most consistent with resolution of previous transient intussusception. 2. Contiguous mild mural thickening of the colon from the rectum through the splenic flexure with partial loss of the normal house for pattern of the colon. No appreciable perienteric inflammatory change. No skip areas. The pattern of colonic abnormalities while not entirely specific suggests ulcerative colitis. Correlate with clinical assessment. 3. Postsurgical change of Gabi-en-Y gastric bypass. 4. Normal appendix documented.
[2017-05-22 21:04] VITALS: BP 118/70
--- NOTE | 2017-05-22 21:50 | CONS ---
CC: Ifeoma Gutiérrez MD; [facility] * CONSULTATION REPORT: DATE OF CONSULT: 05/22/17 HISTORY OF PRESENT ILLNESS: I was contacted by the emergency room to evaluate Ms. Boateng, a 31-year-old female who is 2 years status post Gabi-en-Y gastric bypass who presents with persistent nausea and vomiting and inability to keep anything down. Symptoms started yesterday. The patient was at work. 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 She then worsened with retching and nausea and vomiting. She did present to the emergency room here complaining of abdominal pain. The patient is unable to vomit due to her gastric bypass. The patient lost approximately 150 pounds since bypass 2 years ago. She did regain 10 pounds but is trying to lose that back. PAST MEDICAL HISTORY: Morbid obesity. PAST SURGICAL HISTORY: Cholecystectomy and gastric bypass. She also had a trip to the operating room for an internal hernia in March 2016. At that time , she was found to have an internal hernia with its defect at the mesentery of the gastrojejunostomy. The patient also has a history of kidney stones and underwent cystoscopy, left retrograde pyelogram and laser lithotripsy with a stent placement earlier this year. MEDICATIONS: Include multivitamins. ALLERGIES: She has no known drug allergies. REVIEW OF SYSTEMS: No fevers or chills. Nausea as described. No appetite. No shortness of breath or chest pain. Crampy abdominal pain that is intermittent. The patient states that she had this approximately a month ago as well. She is passing flatus, she cannot remember the last bowel movement. Last menstrual period was 2 weeks ago and it was after an extended time. PHYSICAL EXAM: She is afebrile. Vital signs are stable. Alert and oriented x3 , in no apparent distress. Head, ears, eyes, nose, and throat: Normocephalic, atraumatic. Sclerae are anicteric. Mucous membranes are moist. Neck: No lymphadenopathy. Lungs: Clear to auscultation bilaterally. Abdomen: Soft, nondistended. Minimally tender on deep palpation in the epigastrium. Normoactive bowel sounds. No hernias or masses noted. Well-healed surgical incisions. No CVA tenderness. Rectal exam not performed. Extremities: Within normal limits. DIAGNOSTIC STUDIES/LAB DATA: The patient has labs done showed normal white count as well as a normal CRP. Metabolic panel is only suggestive of mildly elevated bilirubin and transaminases. Urinalysis shows ketones and protein and bilirubin. Negative blood and negative nitrites. The patient underwent an abdominal x-ray, which was unrevealing and then a CAT scan noncontrast. These images as well as the report were reviewed, showed no evidence of kidney stones. No hernias. There was consideration on this noncontrast study for moderate segment of small bowel intussusception noted in the mid abdomen. Does not appear to be part of the biliopancreatic limb, but rather a part of the Gabi limb versus distal combined limb. IMPRESSION: Nausea, retching, inability to keep anything down 2 years after gastric bypass, now with a potential segment of small bowel intussusception of unclear etiology. RECOMMENDATIONS: P.o. and IV contrast study at this point. If this persists, then the patient may benefit from a trip to the operating room for diagnostic laparoscopy evaluation of this. She may require a small bowel resection at this time should there be some lead point. Sometimes we see these just with retching. However, this is not a short segment of bowel. The oral and IV contrast study should help us plan a better intervention. Currently, the patient would prefer to go home but is understanding that there may be some findings that need to be worked up and will likely be admitted to my service. The patient's questions were answered. I will continue IV fluids for now and obtain a CT scan with p.o. and IV contrast. [id number]/[facility] #: [id number]
--- NOTE | 2017-05-23 06:43 | ED ---
Sagrario Jimenez Abhishek, scribed for Leonard Guerrero MD on 05/22/17 at 2049 . Progress - Progress Note Progress Note: Pt was signed out. Pending disposition awaiting CT A/P with contrast. CT A/P with contrast reveals: as read by radiologist 1. Previous suggestion of small bowel intussusception no longer visualized most consistent with resolution of previous transient intussusception. 2. Contiguous mild mural thickening of the colon from the rectum through the splenic flexure with partial loss of the normal house for pattern of the colon. No appreciable perienteric inflammatory change. No skip areas. The pattern of colonic abnormalities while not entirely specific suggests ulcerative colitis. Correlate with clinical assessment. 3. Postsurgical change of Gabi-en-Y gastric bypass. 4. Normal appendix documented. ED physician has review the radiology report and agrees. - Consult/PCP Time Called: 20:39 Consult/PCP: Dr. Dee Consult Reason/Comments: Pt can be dispositioned home and will follow up with Dr. Ghotra. Re-Evaluation - Re-Evaluation 20:43 Re-Evaluation Time: 20:43 Comment: Pt feels comfortable going home and will be dispositioned. Course/Dx - Course Course Of Treatment: Pt was signed out. Pending disposition awaiting CT A/P with contrast. CT A/P with contrast reveals: as read by radiologist. 1. Previous suggestion of small bowel intussusception no longer visualized most consistent. with resolution of previous transient intussusception. 2. Contiguous mild mural thickening of the colon from the rectum through the splenic. flexure with partial loss of the normal house for pattern of the colon. No appreciable. perienteric inflammatory change. No skip areas. The pattern of colonic abnormalities while. not entirely specific suggests ulcerative colitis. Correlate with clinical assessment. 3. Postsurgical change of Gabi-en-Y gastric bypass. 4. Normal appendix documented. Discussed care of pt with Dr. Dee who evaluated the pt in the ED and advised that the pt be D/C to home and follow up. Pt's condition is stable and she will be discharged to home. She understands and is agreeable with this plan. Medications reviewed. Elevated BP noted. - Diagnoses Provider Diagnoses: Abdominal pain - Provider Notifications Time Discussed With Above Provider: 14:34 Instructed by Provider To: Other - I discussed the case with Dr. Dee. He will come see the pt in the ED. 1503 - I spoke to Dr. Ghotra. He recommends a non- contrast abd/pel CT to rule out kidney stones. The documentation as recorded by the Sagrario heck Abhishek accurately reflects the service I personally performed and the decisions made by me, Leonard Guerrero MD.
== END | disposition home or self-care (01) ==
LOC: ED 09:28
DX: R10.9 Unspecified abdominal pain (principal)
CPT/HCPCS: 36415; 74020; 74176; 74177; 80053; 81003; 81015; 83690; 83735; 84702; 85025; 86140; 96374; 96375; 99284; J1885; J2405; J2765; Q9967

== ENCOUNTER 2017-12-17 18:04 | Inpatient (IN) | payer BC ==
[2017-12-17] MEDS ORDERED: Morphine VIAL* 4 MG/ML VIAL (1 ml vial) IV ONE ×2 (20:02→21:53)
[2017-12-17] MEDS ORDERED: NS 0.9% 1000 ML* 1,000 ML IV ONE ×3 (20:02→21:15)
[2017-12-17] MEDS ORDERED: Metoclopramide IV* 5 MG/ML 2 ML VIAL IV SLOW PU ONE (20:03)
[2017-12-17 20:39] LABS: ABS Basophils 0.1 10^3/ul (0-0.2); ABS Eosinophils 0 10^3/ul (0-0.6); ABS Lymphocytes 0.8 10^3/ul (1.0-4.8); ABS Monocytes 0.5 10^3/ul (0-0.8); ABS Neutrophils 5.5 10^3/ul (1.5-7.7); ABS Nucleated RBC 0 10^3/ul; Eosinophil % 0 % (0-6); Hematocrit 46 % (35-47); Hemoglobin 15.8 g/dl (12.0-16.0); Lymphocyte % 11.8 % (25-47); Mean Corpuscular HGB Conc 34 g/dl (31-36); Mean Corpuscular Hemoglobin 34 pg (27-31); Mean Corpuscular Volume 98 fL (80-97); Mean Platelet Volume 8.5 um3 (7.4-10.4); Nucleated Red Blood Cells % 0.1; Platelet Count 168 10^3/ul (150-450); Red Blood Count 4.71 10^6/ul (4.0-5.4); Red Cell Distribution Width 14 % (10.5-15); White Blood Count 6.9 10^3/ul (3.5-10.8)
[2017-12-17 20:51] LABS: INR 0.89 (0.77-1.02)
[2017-12-17] MEDS ORDERED: Iohexol 300* (CONTRAST) 10 ML SDV IV ONE (21:10)
[2017-12-17] MEDS ORDERED: metroNIDAZOLE IV 500 MG/100ML* 500 MG/100 ML BAG IVPB ONE (22:54)
[2017-12-17] MEDS ORDERED: Levofloxacin 500 MG IVPREMIX(* 500 MG/100 ML BAG IVPB ONE (22:54)
[2017-12-17] MEDS ORDERED: HYDROmorphone INJ* 2 MG/ML CARPUJECT SYRINGE IV SLOW PU ONE (23:00)
[2017-12-17] MEDS ORDERED: Ondansetron INJ* 2 MG/ML VIAL IV PRN (23:10)
[2017-12-17] MEDS ORDERED: Docusate CAP* 100 MG PO PRN (23:13)
[2017-12-17] MEDS ORDERED: Al Hydrox/Mg Hydrox/Simet LIQ* 30 ML UDC PO PRN (23:13)
[2017-12-17] MEDS ORDERED: Senna TAB PO PRN (23:13)
--- NOTE | 2017-12-17 23:30 | ED ---
Marcelino Jimenez Angela, scribed for Tony Fischer MD on 12/17/17 at 2004 . Abdominal Pain/Female - HPI Summary HPI Summary: This pt is a 32 y/o female presenting to [facility] c/o diffuse abdominal pain since 11:00 today. Pt reports her pain has been worsening since this morning. She notes she has been retching and dry heaving. Denies vomiting. Additionally notes decreased appetite and feeling dehydrated. Her last bowel movement was this morning. Denies constipation, diarrhea, vomiting. PMHx includes gastric bypass (Dr. Ghotra almost 3 years ago in ), cholecystectomy. - History of Current Complaint Chief Complaint: EDAbdPain Stated Complaint: ABD PAIN/WEAKNESS Time Seen by Provider: 12/17/17 19:54 Hx Obtained From: Patient Hx Last Menstrual Period: 12/31/16 Onset/Duration: Lasting Hours, Still Present Timing: Hours Severity Currently: Severe Pain Intensity: 10 Pain Scale Used: 0-10 Numeric Location: Diffuse Radiates: No Aggravating Factor(s): Nothing Alleviating Factor(s): Nothing Associated Signs and Symptoms: Positive: Nausea, Other: - POS: decreased appetite, dehydration. Negative: Fever, Constipation, Vomiting, Diarrhea Allergies/Adverse Reactions: Allergies Allergy/AdvReac Type Severity Reaction Status Date / Time No Known Allergies Allergy Verified 12/17/17 18:20 Home Medications: Home Medications NK [No Home Medications Reported] 12/17/17 [History Confirmed 12/17/17] PMH/Surg Hx/FS Hx/Imm Hx Endocrine/Hematology History: Reports: Hx Anemia - POST , OK NOW Denies: Hx Diabetes, Hx Thyroid Disease Cardiovascular History: Denies: Hx Hypertension Respiratory History: Denies: Hx Asthma, Hx Chronic Obstructive Pulmonary Disease (COPD) GI History: Reports: Hx Gastroesophageal Reflux Disease, Other GI Disorders - GASTRIC BYPASS 04/12/15 Denies: Hx Ulcer History: Reports: Hx Kidney Stones - LEFT RENAL CALCULI-SVETLANA LITHO Denies: Hx Renal Disease Musculoskeletal History: Reports: Hx Tendonitis - IN BOTH HANDS DURING , OK NOW Sensory History: Reports: Hx Contacts or Glasses Denies: Hx Hearing Aid Opthamlomology History: Reports: Hx Contacts or Glasses Neurological History: Denies: Hx Headaches Psychiatric History: Reports: Hx Anxiety - Surgical History Surgery Procedure, Year, and Place: [place] [facility] [place]OVAL [place] WISDOM TEETH- [facility]. Gastric bypass - 04/2015. Hernia repair March 2016 Hx Anesthesia Reactions: No Infectious Disease History: No Infectious Disease History: Denies: Hx Clostridium Difficile, Hx Hepatitis, Hx Human Immunodeficiency Virus (HIV), Hx of Known/Suspected MRSA, Hx Shingles, Hx Tuberculosis, Hx Known/ Suspected VRE, Hx Known/Suspected VRSA, History Other Infectious Disease, Traveled Outside the [place] in Last 30 Days - Family History Known Family History: Positive: Hypertension, Other - father with diverticular disase Negative: Diabetes - Social History Alcohol Use: Occasionally Alcohol Amount: 3-4 X PER YEAR Substance Use Type: Reports: None, Marijuana Substance Use Comment - Amount & Last Used: x 1 week Smoking Status (MU): Former Smoker Type: Cigarettes Amount Used/How Often: 1 PPD FOR 6 YRS Length of Time of Smoking/Using Tobacco: 6 YRS Have You Smoked in the Last Year: Yes - MARIJUANA ONLY Review of Systems Constitutional: Other - dehydration, decreased appetite Negative: Fever, Chills Eyes: Negative ENT: Negative Gastrointestinal: Other - retching Positive: Abdominal Pain, Nausea. Negative: Vomiting, Diarrhea, Other - constipation Musculoskeletal: Negative Skin: Negative Neurological: Negative All Other Systems Reviewed And Are Negative: Yes Physical Exam - Summary Physical Exam Summary: VITAL SIGNS: Reviewed. GENERAL: Patient is a well-developed and nourished female who is lying comfortable in the stretcher. Patient is not in any acute respiratory distress. HEAD AND FACE: No signs of trauma. No ecchymosis, hematomas or skull depressions. No sinus tenderness. EYES: PERRLA, EOMI x 2, No injected conjunctiva, no nystagmus. EARS: Hearing grossly intact. Ear canals and tympanic membranes are within normal limits. MOUTH: Oropharynx within normal limits. NECK: Supple, trachea is midline, no adenopathy, no JVD, no carotid bruit, no c- spine tenderness, neck with full ROM. CHEST: Symmetric, no tenderness at palpation LUNGS: Clear to auscultation bilaterally. No wheezing or crackles. CVS: Regular rate and rhythm, S1 and S2 present, no murmurs or gallops appreciated. ABDOMEN: Soft, diffuse abdominal tenderness. No signs of distention. No rebound no guarding, and no masses palpated. Hyperactive bowel sounds. EXTREMITIES: FROM in all major joints, no edema, no cyanosis or clubbing. NEURO: Alert and oriented x 3. No acute neurological deficits. Speech is normal and follows commands. SKIN: Dry and warm Triage Information Reviewed: Yes Vital Signs On Initial Exam: Initial Vitals Temp Pulse Resp BP Pulse Ox 97.7 F 113 20 114/74 97 12/17/17 18:17 12/17/17 18:17 12/17/17 18:17 12/17/17 18:17 12/17/17 18:17 Vital Signs Reviewed: Yes Diagnostics - Vital Signs Vital Signs Temp Pulse Resp BP Pulse Ox 12/17/17 18:17 97.7 F 113 20 114/74 97 - Laboratory Result Diagrams: 12/17/17 20:31 12/17/17 20:30 Lab Statement: Any lab studies that have been ordered have been reviewed, and results considered in the medical decision making process. - CT Abdomen/Pelvis CT CT Interpretation: Positive (See Comments) - IMPRESSION: There is no free air. Prior gastric bypass surgery noted. There is fatty infiltration of the liver. There is hepatomegaly. Prior cholecystectomy. There is moderately extensive stranding and fluid attenuation noted about the pancreas. There is associated moderate left anterior pararenal space effusion. Findings suggest acute pancreatitis. There is no hydronephrosis. There are no renal calculi. There is bowel wall thickening noted throughout the colon, particularly the right colon, suspicious for moderate diffuse colitis. The appendix is normal in size. There is no evidence of appendicitis. Urinary bladder is unremarkable. There are no bladder calculi. Mild free fluid is noted in the dependent portion of the pelvis. Dr. Fischer has reviewed this radiology report. CT Interpretation Completed By: Radiologist Abdominal Pain Fem Course/Dx - Course Course Of Treatment: Pt is a 32 y/o female, with hx of gastric bypass surgery, who presents with diffuse abdominal pain since 11:00 today. Pt reports her pain has been worsening since this morning. She notes she has been retching and dry heaving. Denies vomiting. Test results without any significant abnormalities except for glucose of 141, lactic acid of 5.8, total bilirubin of 1.60, AST of 160, ALT of 92, amylase of 160. Abdomen/pelvis CT shows findings consistent with acute pancreatitis. In the ED course the pt was given IV fluids, Reglan, and Morphine. I discussed pt care with Dr. Rooth, hospitalist, who has agreed to admit the pt. - Diagnoses Provider Diagnoses: Acute pancreatitis, Colitis - Provider Notifications Discussed Care Of Patient With: Terra Hebert Time Discussed With Above Provider: 23:00 Instructed by Provider To: Other - I discussed pt care with Dr. Hebert, hospitalist, who has agreed to admit the pt. Discharge - Sign-Out/Discharge Documenting (check all that apply): Discharge/Admit/Transfer - [place] [facility] [place] Plan Condition: Stable Disposition: ADMITTED TO [facility] Referrals: Ifeoma Gutiérrez MD [Primary Care Provider] - The documentation as recorded by the Marcelino heck Angela accurately reflects the service I personally performed and the decisions made by me, Tony Fischer MD.
[2017-12-18] MEDS: Acetaminophen TAB* 325 MG PO PRN ×2 (01:35→21:40)
[2017-12-18] MEDS: NS 0.9% 1000 ML* 1,000 ML IV SCH ×2 (01:37→05:17)
[2017-12-18] MEDS: PROCHLORPERAZINE INJ 5 MG/ML 2 ML VIAL IV PRN ×2 (03:25→10:56)
[2017-12-18] MEDS: HYDROmorphone INJ* 2 MG/ML CARPUJECT SYRINGE IV SLOW PU PRN ×4 (04:03→19:49)
[2017-12-18 06:50] LABS: ABS Basophils 0 10^3/ul (0-0.2); ABS Eosinophils 0 10^3/ul (0-0.6); ABS Lymphocytes 0.7 10^3/ul (1.0-4.8); ABS Neutrophils 5.6 10^3/ul (1.5-7.7); ABS Nucleated RBC 0 10^3/ul; Eosinophil % 0 % (0-6); Hematocrit 40 % (35-47); Hemoglobin 13.4 g/dl (12.0-16.0); Lymphocyte % 9.3 % (25-47); Mean Corpuscular HGB Conc 34 g/dl (31-36); Mean Corpuscular Hemoglobin 34 pg (27-31); Mean Corpuscular Volume 99 fL (80-97); Mean Platelet Volume 8.2 um3 (7.4-10.4); Nucleated Red Blood Cells % 0; Platelet Count 125 10^3/ul (150-450); Red Cell Distribution Width 13 % (10.5-15); White Blood Count 7.3 10^3/ul (3.5-10.8)
[2017-12-18] MEDS: Ondansetron 40 MG VIAL* 2 MG/ML 20 ML VIAL IV PRN ×2 (06:52→16:13)
[2017-12-18 07:13] LABS: EGFR Non-African American 134.6 (>60)
--- NOTE | 2017-12-18 07:45 | RAD ---
INDICATION: Abdominal pain. COMPARISON: Comparison is made with a prior CT of the abdomen and pelvis from May 22, 2017. TECHNIQUE: A CT scan of the abdomen and pelvis was performed with intravenous and oral contrast following intravenous injection of 139 ml of Omnipaque 300 nonionic contrast. Contiguous axial sections were obtained from the lung bases through the symphysis pubis. Images were reconstructed in the coronal and sagittal planes. FINDINGS: The lung bases are clear. No pleural effusion is present. The liver is mildly enlarged and decreased in attenuation consistent with fatty infiltration. No significant focal hepatic abnormality is seen. The patient is status post cholecystectomy. The spleen is normal in size. The pancreas is enlarged. No pancreatic ductal distention or calcifications are seen. There is stranding and fluid tracking around the pancreas extending into the splenic hilum most consistent with pancreatitis. There is no evidence for hemorrhage or necrosis. In addition along the anterior aspect of the head of the pancreas there is a nodular area measuring 2.0 cm in size possibly representing an enlarged lymph node versus exophytic enlargement of the pancreatic head. The kidneys and adrenal glands are normal in size. No hydronephrosis is seen. No significant focal renal abnormality is seen. The aorta is normal in caliber and demonstrates homogeneous contrast opacification. No significant enlarged retroperitoneal lymph nodes are seen. The patient is status post gastric bypass surgery. The excluded stomach appears nondistended. The small bowel and colon appear nondistended. The appendix is within normal limits. There is mild circumferential thickening of wall of the wall of the ascending colon suggestive of colitis. No free intraperitoneal air is seen. There is a small amount of free intraperitoneal fluid present in the paracolic gutters and dependent pelvis. No significant focal osseous abnormality is seen. IMPRESSION: 1. FINDINGS MOST CONSISTENT WITH ACUTE PANCREATITIS. 2. FINDINGS SUGGESTIVE OF COLITIS INVOLVING THE ASCENDING COLON. 3. SMALL AMOUNT OF FREE INTRAPERITONEAL FLUID. 4. MILD HEPATOMEGALY AND HEPATIC STEATOSIS. 5. STATUS POST GASTRIC BYPASS SURGERY.
--- NOTE | 2017-12-18 09:20 | HP ---
CC: Dr. Ifeoma Gutiérrez. HISTORY AND PHYSICAL: DATE OF ADMISSION: 12/17/17 TIME OF EVALUATION: 2300 PRIMARY CARE PHYSICIAN: Dr. Ifeoma Gutiérrez CHIEF COMPLAINT: Abdominal pain, nausea and vomiting. HISTORY OF PRESENT ILLNESS: This is a 32-year-old female with the past medical history of being morbidly obese, status post cholecystectomy and gastric bypass who presents to the emergency room with acute onset of abdominal pain, nausea and vomiting. The patient states for the past few days she has had loss of appetite, today around 11 a.m. she developed diffuse abdominal pain mostly in the upper epigastric region, and with nausea, vomiting that consistently got worse. She denies any diarrhea. No constipation. No changes in her bowels. She states she has had some chills. No fevers. She states that she has gained some weight back since her gastric bypass. No chest pain. No shortness of breath. She states she is a social drinker on the weekends mostly. No significant binging event. Otherwise, remaining review of systems is negative including no recent URI illness. In the emergency room, the patient had labs, imaging, was found to have pancreatitis was given 3 L of normal saline, morphine a total of 8 mg, Reglan and was referred to the hospitalist service for further evaluation. PAST MEDICAL HISTORY: 1. History of gastric bypass. 2. History of gallstones, status post cholecystectomy. 3. Morbid obesity. MEDICATIONS: None. ALLERGIES: None. SOCIAL HISTORY: She lives at home with her 2 children. 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 As mentioned she drinks socially. No tobacco or illicit drug use. Code status, full code. FAMILY HISTORY: Mother at age 48 from cardiac related causes. Father is alive and healthy. REVIEW OF SYSTEMS: A 14-point review of systems as mentioned in the HPI otherwise negative. PHYSICAL EXAMINATION GENERAL: In no acute distress, some mild discomfort. VITAL SIGNS: Temp 97.7, pulse rate 113, respiratory rate 18, oxygen saturation 97% on room air, blood pressure 114/74. HEENT: Head: Normocephalic. Pupils are equal and reactive. Oropharynx: Mucous membranes are dry. NECK: Supple. No lymphadenopathy. RESPIRATORY: Clear to auscultation. No wheezes, rhonchi or rales. CARDIAC: Tachycardia. No murmurs, rubs or gallops. ABDOMEN: Positive bowel sounds, soft, diffusely tender mainly in the upper region and the epigastric region. No rebound or guarding. EXTREMITIES: No clubbing, cyanosis, edema. +2 DP. NEUROLOGIC: Alert and oriented x3. No gross focal neurologic deficits. DIAGNOSTIC STUDIES/LAB DATA: White count 6.9, hemoglobin 15.8, hematocrit 46, platelets 168,000, INR is 0.89. Sodium 136, potassium 3.7, chloride is 92, bicarb 21, BUN 6, creatinine 0.71, glucose 141, lactic acid 5.8, magnesium 1.9, total bili is 1.6, AST is 160, ALT is 92, CRP is 2.99, amylase is 160, beta HCG is less than 6. Abdomen and pelvis CT, there is no free air. Prior gastric surgery noted, fatty infiltration of the liver. There is hepatomegaly, prior cholecystectomy, moderately extensive stranding and fluid attenuation noted about the pancreas, there is associated moderate left anterior pararenal space effusion, findings suggestive of acute pancreatitis, no hydronephrosis, no renal calculi. There is bowel wall thickening noted throughout the colon particularly the right colon , suspicious for moderate diffuse colitis. ASSESSMENT: This is a 32-year-old female with past medical history of morbid obesity, who presents to the emergency room with acute onset of abdominal pain, nausea, vomiting and found to have pancreatitis. 1. Abdominal pain, nausea and vomiting. Findings are consistent with pancreatitis. She has had a cholecystectomy in the past and she does not appear to be a heavy drinker, although her AST is almost double from her ALT. She also has a lactic acidosis. Plan: We will admit her for treatment of her acute pancreatitis. I am going to add on a lipid panel, hepatitis panel, repeat her labs in the morning. We will continue with aggressive IV hydration and pain control and antiemetics. We will follow up on her UA as well. Also, we are going to order an ultrasound to look at her biliary tree, and renal and bladder ultrasound to get a further evaluation of her pararenal effusion. It is unclear if this is just extension of inflammation secondary to her pancreatitis. 2. Colitis. Assessment: The patient does not have any changes in her bowels. Her discomfort is mostly in the upper abdominal region, epigastric region more consistent with her pancreatitis. I am not sure if this is related to her pancreatitis or a separate issue. She does not have a white count and no fever and no changes in her stool pattern. Plan: I am going to check her sed rate. We will hold off on further antibiotics for now. This could be inflammatory colitis, or reactive colitis, less likely infectious colitis, but we will repeat her labs as mentioned. Continue with fluids and pain control. 3. FEN: We will place her on a clear diet. 4. DVT prophylaxis: The patient scores low risk. We will encourage ambulation 5. Code status: Full code. TIME SPENT: Greater than 50 minutes has been spent doing the history and physical, more than half time spent in direct patient contact. [id number]/[facility] #: [id number] CHERRI
--- NOTE | 2017-12-18 09:26 | RAD ---
Indication: Evaluate urinary bladder. Real-time sonography of the urinary bladder was performed. There is a post void residual of 79 mL. Bladder wall measures 3 mm. Bilateral ureteral jets are noted. IMPRESSION: Significant post void residual of 79 mL. Bilateral ureteral jets are identified.
--- NOTE | 2017-12-18 09:28 | RAD ---
Indication: Pararenal effusion. Real-time sonography of the right upper quadrant was performed. The liver is enlarged measuring 22 cm in length. It is diffusely increased in echogenicity consistent with hepatic steatosis. The gallbladder has been resected. Common duct measures up to 7 mm. Right kidney measures 11.1 x 4.9 x 5.2 cm. Left kidney measures 10.8 x 5.2 x 4.8 cm. The pancreas demonstrates prominent size of the pancreas. Pancreatic duct measures 3 mm which is at the upper limits of normal. Aorta and inferior vena cava are unremarkable. The spleen measures 9.9 x 3.1 x 6.2 cm. There is a small amount of perisplenic fluid noted. IMPRESSION: Prominent size of the pancreas where visualized. Hepatic steatosis. Fluid surrounding the spleen.
[2017-12-18] MEDS ORDERED: Thiamine IV* 100 MG/ML 2 ML VIAL IV ONE (10:33)
[2017-12-18] MEDS: Folic Acid TAB* 1 MG PO SCH (10:55)
[2017-12-18] MEDS: Multivitamins/Minerals TAB PO SCH (10:55)
[2017-12-18] MEDS: LORazepam TAB(*) 1 MG PO SCH ×4 (10:56→21:41)
[2017-12-18] MEDS: LORazepam INJ* 2 MG/ML 1 ML VIAL IV SCH ×2 (10:56→19:36)
[2017-12-18 11:53] LABS: ABS Basophils 0 10^3/ul (0-0.2); ABS Eosinophils 0 10^3/ul (0-0.6); ABS Lymphocytes 0.4 10^3/ul (1.0-4.8); ABS Monocytes 0.9 10^3/ul (0-0.8); ABS Neutrophils 5.3 10^3/ul (1.5-7.7); ABS Nucleated RBC 0 10^3/ul; Eosinophil % 0 % (0-6); Hematocrit 39 % (35-47); Hemoglobin 13.2 g/dl (12.0-16.0); Lymphocyte % 6.4 % (25-47); Mean Corpuscular HGB Conc 34 g/dl (31-36); Mean Corpuscular Hemoglobin 33 pg (27-31); Mean Corpuscular Volume 98 fL (80-97); Nucleated Red Blood Cells % 0; Platelet Count 105 10^3/ul (150-450); Red Blood Count 3.98 10^6/ul (4.0-5.4); Red Cell Distribution Width 14 % (10.5-15); White Blood Count 6.7 10^3/ul (3.5-10.8)
[2017-12-18 12:13] LABS: EGFR Non-African American 131.7 (>60)
[2017-12-18] MEDS: KCL 10 MEQ/50 ML IVPREMIX* 10 MEQ/50 ML BAG IV SCH ×3 (13:26→17:21)
--- NOTE | 2017-12-18 14:16 | PN ---
Subjective Date of Service: 12/18/17 Interval History: HOSPITALIST PROGRESS NOTE Patient seen and examined at bedside. Care reviewed and d/w Lucila Elizondo. She feels a little better today. Still has abdominal pain, but no vomiting. Appears flushed, a little diaphoretic, has mild tremors. Had a grease meal last week to celebrate her birthday, followed by some nausea, but no pain. Admits drinking alcohol, vodka half bottle 3x week. Family History: Unchanged from Admission Social History: Unchanged from Admission Past Medical History: Unchanged from Admission Objective Active Medications: Acetaminophen (Tylenol Tab*) 650 mg PO Q4H PRN PRN Reason: FEVER/PAIN Last Admin: 12/18/17 01:35 Dose: 650 mg Al Hydrox/Mg Hydrox/Simethicone (Maalox Plus*) 30 ml PO Q6H PRN PRN Reason: INDIGESTION Docusate Sodium (Colace Cap*) 100 mg PO BID PRN PRN Reason: CONSTIPATION Folic Acid (Folvite Tab*) 1 mg PO DAILY [facility] Last Admin: 12/18/17 10:55 Dose: 1 mg Hydromorphone HCl (Dilaudid Inj*) 1 mg IV SLOW PU Q4H PRN PRN Reason: PAIN Last Admin: 12/18/17 07:59 Dose: 1 mg Lactated Ringer's (Lactated Ringers 1000 Ml Bag*) 1,000 mls @ 250 mls/hr IV PER RATE [facility] Last Admin: 12/18/17 10:27 Dose: 250 mls/hr Lactated Ringer's (Lactated Ringers 1000 Ml Bag*) 1,000 mls @ 0 mls/hr IV WIDE OPEN [facility] PRN Reason: Wide Open Stop: 12/19/17 13:01 Last Admin: 12/18/17 14:05 Dose: 999 mls/hr Potassium Chloride (Potassium Chloride 10 Meq/50 Ml Ivpremix*) 10 meq in 50 mls @ 50 mls/hr IV Q1H [facility] Stop: 12/18/17 15:59 Last Admin: 12/18/17 13:26 Dose: 50 mls/hr Lorazepam (Ativan Inj*) 1 mg IV Q8H [facility] PRN Reason: Taper Stop: 12/21/17 06:59 Last Admin: 05/09/18 10:56 Dose: 1 mg Lorazepam (Ativan Tab(*)) 0 - 6 mg PO .PER [facility] PROTOCOL [facility] PRN Reason: Protocol Last Admin: 12/18/17 10:56 Dose: 5 mg Multivitamins/Minerals (Theragran/Minerals Tab*) 1 tab PO DAILY [facility] Last Admin: 12/18/17 10:55 Dose: 1 tab Ondansetron HCl (Zofran Inj*) 4 mg IV Q6H PRN PRN Reason: NAUSEA Last Admin: 12/18/17 06:52 Dose: 4 mg Prochlorperazine Edisylate (Compazine Inj*) 10 mg IV Q6H PRN PRN Reason: NAUSEA/VOMITING Last Admin: 12/18/17 10:56 Dose: 10 mg Senna (Senokot Tab*) 1 tab PO BID PRN PRN Reason: CONSTIPATION Thiamine HCl (Vitamin B-1 Tab*) 100 mg PO DAILY [facility] Vital Signs - 8 hr 12/18/17 12/18/17 12/18/17 10:41 10:56 12:21 Temperature 98.0 F Pulse Rate 110 Respiratory 16 20 16 Rate Blood Pressure 150/84 (mmHg) O2 Sat by Pulse 97 Oximetry 12/18/17 12/18/17 13:02 13:06 Temperature 98.2 F Pulse Rate 124 Respiratory 16 16 Rate Blood Pressure 154/99 (mmHg) O2 Sat by Pulse Oximetry Oxygen Devices in Use Now: Nasal Cannula - 2 liters Appearance: Obese young lady sitting up in bed in [facility], but appears flushed Eyes: No Scleral Icterus Ears/Nose/Mouth/Throat: Mucous Membranes Moist Neck: Trachea Midline Respiratory: Symmetrical Chest Expansion and Respiratory Effort, Clear to Auscultation Cardiovascular: RRR - Normal S1 and S2, tachycardic Abdominal: - - Obese, soft, epigastric tenderness, mild distention, BS+ Extremities: No Edema, - - + tremors Neurological: Alert and Oriented x 3, NL Muscle Strength and Tone Result Diagrams: 12/18/17 11:40 12/18/17 11:40 Assess/Plan/Problems-Billing Assessment: Mrs. Boateng is a 32yo F with PMH of obesity, s/p gastric bypass, cholelithiasis, s/p cholecystectomy, alcohol use, who presented to ED with c/o abdominal pain, found to have pancreatitis. - Patient Problems (1) SIRS (systemic inflammatory response syndrome) Comment: - Met SIRS criteria with tachycardia and CO2<32. - Source is pancreatitis. - No evidence of infection at this time. (2) Pancreatitis Comment: - Probably alcohol related. - Patient admits to drinking half a bottle of vodka 3x/week, last drink 3 days ago. - She did have a greasy meal last week followed by some nausea, but no pain. She 's s/p cholecystectomy, but she could form crystals/stone in her CBD. - GI consult requested. - NPO, aggressive IVF, symptomatic treatment. - Will transfer to ICU for close monitoring. (3) Lactic acidosis Comment: - Secondary to pancreatitis. - Continue aggressive IVF and monitor LA. (4) Alcohol use Comment: - Patient admits drinking half a bottle of vodka 3x/week. - MCV is elevated, AST/ALT are elevated with a 2:1 ratio. - Patient advised about importance of not drinking alcohol with her h/o pancreatitis now. (5) Alcohol withdrawal Comment: - Her tachycardia, HTN, mild diaphoresis, and tremors are compatible with ETOH withdrawal. - Continue WAM protocol with Ativan taper. - Thiamine, MVI, and folate. - evaluation to assist with community resources. (6) Colitis Comment: - CT showed ascending colon mild circumferential wall thickening suggestive of colitis - suspect inflammation secondary to pancreatitis. - No indication for antibiotics at this time. (7) DVT prophylaxis Comment: - SQ heparin. (8) Full code status Status and Disposition: Inpatient for management of acute pancreatitis.
--- NOTE | 2017-12-18 15:14 | CONSULT ---
Consult Consult: CRITICAL CARE MEDICINE DATE: 12/18/17 TIME: 1520 REFERRING PROVIDER: Cherrie REASON/CHIEF COMPLAINT: abd pain, pnacreatitis HISTORY OF PRESENT ILLNESS: 32 yo F, with etoh abuse presenting with acute pancretitis and colitis sec to etoh. feels nausea now and desires some ativan as she is tremulous. pain about 4 now - epigastric. REVIEW OF SYSTEMS: As per HPI. PAST MEDICAL HISTORY: As per HPI. gastric bypass, suzanne, morbid obesity MEDICATIONS: Reviewed. ALLERGIES: None. SOCIAL HISTORY: Reviewed. +etoh. . 2 kids. FAMILY HISTORY: Noncontributory at present. PHYSICAL EXAM: Vital Signs: Reviewed. tachy, rr ok Neurologic: awake, communicating, tremulous HEENT: thick neck, mild appreciable iciteris, mm, lips dry Cardiovascular: S1 S2 distant Respiratory: clear Abdomen: obese, soft, tender Extremities: warm Access: piv LABS: Reviewed. IMAGING: Reviewed. lipase increasing. isaac labs number consumption. MEDICATIONS: Reviewed. ASSESSMENT: 32 F Acute pancretitis and colitis sec to etoh. Acute etoh withdrawal Lactic acidosis Steatohepatitis PLAN: Neurologic: tolerable. prn pain management Cardiovascular: perfusing but high demand but has reserve. utilize ns for vol loading for now. no anticipated vasopressor need. Respiratory: tolerating without wob. ra currently post transfer. at risk for ali but well currently. Gastrointestinal: npo today. gi eval with mri pending to ensure no obstructing stone dx. no surgical needs at present. no acute parental needs for nutrition. f /u for ability to undertake po hopefully as early as tomorrow or next. can f/u labs and pancreatitis phases Renal/Metabolic: adjust fluids from LR as she may have poor liver clearance of lactate and needs more abundant fluid without la accumulation. cr ok. acidosis can correct as she is Cl deficit but then hopefully can avoid Cl overload all the same too. Infectious Disease: not seeing an infective burden. agree colitis likely sec to etoh but needs clinical follow. trying to avoid abx. Hematology: hemoconcentrated given ongoing ebb phase. plt consumption. hsq. Endocrine: f/u bg. Musculoskeletal: oob as able. 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 SUP: H2 VTE prophylaxis: on heparin Disposition: ICU for today; will follow Code Status: Full Critical Care Time: 35min D/w Dr. Cherrie Zheng, DO
--- NOTE | 2017-12-18 15:53 | RAD ---
Indication: Abdominal pain, loss of appetite. Nausea/near emesis. Assess for common bile duct stones. Post cholecystectomy and gastric bypass. Comparison: December 18, 2017 RIGHT upper quadrant ultrasound and December 17, 2017 CT. Technique: [employer] 1.5 Trudy [id number] with GEM suite. Noncontrast magnetic resonance cholangiopancreatography. Report: Upper normal 6 mm diameter smooth margined common bile duct. No filling defects are identified within the common bile duct to indicate stones. Negative for intrahepatic biliary dilatation. Post cholecystectomy. Nondilated cystic duct remnant visualized. Negative for pancreatic duct dilatation. Moderately large volume of infiltrative peripancreatic fluid as well as diffuse small volume of ascites including perisplenic and perihepatic. No loculated peripancreatic fluid collections evident. IMPRESSION: 1. Negative for biliary dilatation or common bile duct stones. 2. Acute pancreatitis and moderately large volume of infiltrative peripancreatic fluid without significant change or evidence for a loculated retroperitoneal fluid collection. 3. No significant change in small volume of ascites.
[2017-12-18] MEDS: NS 0.9% 1000 ML* 3,000 ML IV ONE ×3 (16:00→18:25)
[2017-12-18 18:58] LABS: Urine Appearance Clear; Urine Blood Negative (Negative); Urine Color Yellow; Urine Ketones Trace (Negative); Urine Protein Negative (Negative); Urine Specific Gravity 1.009 (1.010-1.030); Urine Urobilinogen Positive (Negative)
[2017-12-18] MEDS: NS 0.9% w/ 20 Meq KCL 1000 ML* 1,000 ML IV SCH (19:37)
[2017-12-18 19:47] LABS: EGFR Non-African American 162.5 (>60)
[2017-12-18] MEDS: Heparin VIAL(*) 5000 UNITS/ML VIAL (FIVE THOUSAND) SUBCUT SCH (21:40)
[2017-12-18] MEDS ORDERED: NS 0.9% 1000 ML* 1,000 ML IV ONE (21:48)
--- NOTE | 2017-12-18 23:01 | CONS ---
CC: Ifeoma Gutiérrez MD GASTROENTEROLOGY CONSULTATION: DATE OF CONSULT: 12/18/17 REFERRING PHYSICIAN: Ifeoma Gutiérrez MD HISTORY OF PRESENT ILLNESS: Thank you for asking me to see Ms. Boateng. As you know, she is a 32-y ear-old female, who is status post gastric bypass as well as cholecystectomy approximately 3 years ag o, who presented to the emergency room yesterday with nausea, vomiting, and severe pain in the epigas tric region. The patient was noted in the emergency room to have a lipase of 2229. Her lactic acid was elevated at 5.8. Her liver function tests were mildly abnormal with bilirubin of 1.6, AST of 160 and ALT of 92. The patient's lipase subsequently has elevated this morning to 3024 and this afterno on to 4350. She has been receiving vigorous IV hydration. Her lactic acid did drop down to 2.4, now back up to 4.5. The patient has been made n.p.o. She did undergo abdominal ultrasound which reveal ed prominent pancreas, common bile duct of 7 mm, hepatic steatosis. The patient also underwent abdom inopelvic CAT scan which did reveal acute pancreatitis, small amount of free intraperitoneal fluid, h epatomegaly with steatosis, status post gastric bypass surgery and some inflammatory area in the asce nding colon likely related to the pancreatitis. The patient is having ongoing abdominal pain. The p atient rarely drinks alcohol. She is unaware of any issues with elevated triglycerides. She has neve r had pancreatitis before. MEDICATIONS IN THE HOSPITAL: Include: 1. Tylenol. 2. Colace. 3. Dilaudid. 4. Lactated Ringers 2 L wide open, then 250 mL/hour. 5. Lorazepam. 6. Zofran. 7. Compazine. ALLERGIES: No known drug allergies. FAMILY HISTORY: Noncontributory. SOCIAL HISTORY: The patient has 2 children. She drinks occasional alcohol. No tobacco. REVIEW OF SYSTEMS: A 10-point review of systems is performed and is otherwise negative. PHYSICAL EXAM: Ms. Boateng is a 32-year-old female, in no acute distress. Temperature is 98.2, hear t rate of 124, blood pressure 154/99. HEENT Exam: There is no scleral icterus. Heart is regular ra te and rhythm. Lungs are clear. Abdomen is soft. There is diffuse tenderness in the upper abdomen. Bowel sounds are present. There is no distention. Skin is warm and dry. Neuro exam is grossly int act. Alert and oriented x3. LABORATORY DATA: Pertinent laboratory studies as above. White blood count of 6.7, hematocrit of 39. Triglycerides of 95. Calcium of 9.4, down to 7.4 from admission. Albumin of 4.5, down to 3.5 from admission. IMPRESSION: Ms. Boateng has a moderately severe acute pancreatitis. I suspect the presence of a po ssible common bile duct stone. Her triglyceride level is normal. There is no history reported of al cohol abuse. She is being vigorously hydrated with lactated Ringers. Her lipase continues to elevat e. She continues to be in pain and her lactic acid remains elevated. RECOMMENDATIONS: I will order MRCP. This patient will likely require ERCP and due to her gastric by pass, will need to be transferred to a tertiary facility. I have discussed the procedure with Dr. Ismael cheng, who does not do ERCP, status post gastric bypass. Case will be discussed with the hospitalist . I will consider earlier referral than later given her increasing lipase and lactic acid. [id number]/[facility] #: [id number]
--- NOTE | 2017-12-18 23:41 | CONS ---
CC: Dr. Echeverria ADDENDUM: GASTROENTEROLOGY CONSULTATION: DATE OF CONSULT: 12/18/17 I have just had a discussion with the hospitalist regarding the patient's care. The patient apparently now reports that she drinks half a bottle of vodka 3 to 4 times per week. Given this issue as well as the progression of her lipase and lactic acid as well as apparent now withdrawal from alcohol, the patient is going to be transferred to the intensive care unit for closer monitoring. I have discussed with Dr. Echeverria [facility], which she will schedule and consideration of transfer to a pancreatic center in the event ERCP is required given the absence of our ability to do it here and also given the patient's condition. [id number]/[facility] #: [id number] CHERRI
[2017-12-19] MEDS: LORazepam TAB(*) 1 MG PO SCH ×5 (00:11→20:48)
[2017-12-19] MEDS: NS 0.9% w/ 20 Meq KCL 1000 ML* 1,000 ML IV SCH ×2 (02:14→08:36)
[2017-12-19] MEDS: LORazepam INJ* 2 MG/ML 1 ML VIAL IV SCH ×2 (02:39→14:56)
[2017-12-19] MEDS: HYDROmorphone INJ* 2 MG/ML CARPUJECT SYRINGE IV SLOW PU PRN ×5 (03:47→21:48)
[2017-12-19] MEDS: Heparin VIAL(*) 5000 UNITS/ML VIAL (FIVE THOUSAND) SUBCUT SCH ×3 (05:34→20:48)
[2017-12-19 05:58] LABS: Hematocrit 35 % (35-47); Hemoglobin 11.9 g/dl (12.0-16.0); Mean Corpuscular HGB Conc 34 g/dl (31-36); Mean Corpuscular Hemoglobin 34 pg (27-31); Mean Corpuscular Volume 100 fL (80-97); Mean Platelet Volume 8.7 um3 (7.4-10.4); Platelet Count 87 10^3/ul (150-450); Red Blood Count 3.56 10^6/ul (4.0-5.4); Red Cell Distribution Width 14 % (10.5-15); White Blood Count 7.1 10^3/ul (3.5-10.8)
[2017-12-19 06:19] LABS: Monocytes % 7 % (0-7)
[2017-12-19 06:38] LABS: EGFR Non-African American 166.8 (>60)
[2017-12-19] MEDS ORDERED: Magnesium Sulfate IV* 3 GM in NS 0.9% 100 ML* 100 ML IVPB ONE (07:52)
[2017-12-19] MEDS ORDERED: Potassium Phosphate IV* 10 MMOLE in NS 0.9% 250 ML* 250 ML IVPB ONE (07:52)
[2017-12-19] MEDS ORDERED: Potassium Phosphate IV* 30 MMOLE in NS 0.9% 250 ML* 250 ML IVPB ONE (07:53)
[2017-12-19] MEDS ORDERED: Calcium Gluconate INJ* 1 GM in NS 0.9% 50 ML* 50 ML IVPB ONE (07:53)
[2017-12-19] MEDS: Folic Acid TAB* 1 MG PO SCH (08:15)
[2017-12-19] MEDS: Thiamine TAB* 100 MG TAB PO SCH (08:15)
[2017-12-19] MEDS: Multivitamins/Minerals TAB PO SCH (08:15)
[2017-12-19] MEDS: Famotidine TAB* 20 MG PO SCH (08:15)
[2017-12-19] MEDS ORDERED: Multivitamins/Minerals TAB PO SCH (09:00)
[2017-12-19] MEDS ORDERED: Magnesium Sulfate 2 GM IV IVPB ONE (09:00)
[2017-12-19] MEDS ORDERED: Folic Acid TAB* 1 MG PO SCH (09:00)
[2017-12-19] MEDS ORDERED: Magnesium Sulfate 1 GM IV* 1 GM/100 ML BAG IV ONE (10:00)
[2017-12-19 13:36] LABS: EGFR Non-African American 186.2 (>60)
--- NOTE | 2017-12-19 14:42 | PN ---
Progress Note - Progress Note Date of Service: 12/19/17 Note: CRITICAL CARE MEDICINE DATE: 12/19/17 TIME: 1400 SUBJECTIVE: Patient seen and examined. PHYSICAL EXAM: Vital Signs: Reviewed. tachy, rr ok Neurologic: awake, communicating, little less tremulous HEENT: thick neck, eomi Cardiovascular: S1 S2 distant Respiratory: clear with soft end exp wheeze Abdomen: obese, soft, less tender but she states its still painful Extremities: warm Access: piv LABS: Reviewed. IMAGING: Reviewed. MEDICATIONS: Reviewed. ASSESSMENT: 32 F Acute pancretitis and colitis sec to etoh. Acute etoh withdrawal Lactic acidosis Steatohepatitis PLAN: better overall Has adequate vol and can start clears today. slow and steady. allow her to mobilize fluids. benzos with better dynamics for etoh withdrawal. resp status well. supportive care. updated. care per medicine. Disposition: ICU for today and likely floor later today or tomorrow more likely Code Status: Full Critical Care Time: 25min Sarah Zheng DO
--- NOTE | 2017-12-19 14:57 | PN ---
Subjective Date of Service: 12/19/17 Interval History: HOSPITALIST PROGRESS NOTE Patient seen and examined at bedside. She feels a little better today, but very tired. Abdominal pain and nausea are less intense. Family History: Unchanged from Admission Social History: Unchanged from Admission Past Medical History: Unchanged from Admission Objective Active Medications: Acetaminophen (Tylenol Tab*) 650 mg PO Q4H PRN PRN Reason: FEVER/PAIN Last Admin: 12/18/17 21:40 Dose: 650 mg Al Hydrox/Mg Hydrox/Simethicone (Maalox Plus*) 30 ml PO Q6H PRN PRN Reason: INDIGESTION Docusate Sodium (Colace Cap*) 100 mg PO BID PRN PRN Reason: CONSTIPATION Famotidine (Pepcid Tab*) 20 mg PO DAILY [facility] Last Admin: 12/19/17 08:15 Dose: 20 mg Folic Acid (Folvite Tab*) 1 mg PO DAILY [facility] Last Admin: 12/19/17 08:15 Dose: 1 mg Heparin Sodium (Porcine) (Heparin Vial(*)) 5,000 units SUBCUT Q8HR [facility] Last Admin: 12/19/17 05:34 Dose: 5,000 units Hydromorphone HCl (Dilaudid Inj*) 1 mg IV SLOW PU Q4H PRN PRN Reason: PAIN Last Admin: 12/19/17 10:46 Dose: 1 mg Lorazepam (Ativan Inj*) 1 mg IV Q12H [facility] PRN Reason: Taper Stop: 12/21/17 06:59 Last Admin: 12/19/17 02:39 Dose: 1 mg Lorazepam (Ativan Tab(*)) 0 - 6 mg PO .PER [facility] PROTOCOL [facility] PRN Reason: Protocol Last Admin: 12/19/17 08:16 Dose: 2 mg Multivitamins/Minerals (Theragran/Minerals Tab*) 1 tab PO DAILY [facility] Last Admin: 12/19/17 08:15 Dose: 1 tab Ondansetron HCl (Zofran Inj*) 4 mg IV Q6H PRN PRN Reason: NAUSEA Last Admin: 12/18/17 16:13 Dose: 4 mg Prochlorperazine Edisylate (Compazine Inj*) 10 mg IV Q6H PRN PRN Reason: NAUSEA/VOMITING Last Admin: 12/18/17 10:56 Dose: 10 mg Senna (Senokot Tab*) 1 tab PO BID PRN PRN Reason: CONSTIPATION Thiamine HCl (Vitamin B-1 Tab*) 100 mg PO DAILY [facility] Last Admin: 12/19/17 08:15 Dose: 100 mg Vital Signs - 8 hr 12/19/17 12/19/17 12/19/17 07:00 07:01 07:15 Temperature Pulse Rate 117 116 120 Respiratory 16 18 16 Rate Blood Pressure 128/92 112/93 (mmHg) O2 Sat by Pulse 96 96 96 Oximetry 12/19/17 12/19/17 12/19/17 07:30 07:45 08:00 Temperature 98.7 F Pulse Rate 119 124 122 Respiratory 14 13 16 Rate Blood Pressure 111/81 113/94 116/84 (mmHg) O2 Sat by Pulse 97 97 96 Oximetry 12/19/17 12/19/17 12/19/17 08:01 08:15 08:16 Temperature Pulse Rate 132 124 Respiratory 18 19 20 Rate Blood Pressure 124/82 (mmHg) O2 Sat by Pulse 96 97 Oximetry 12/19/17 12/19/17 12/19/17 08:45 09:00 09:01 Temperature Pulse Rate 124 122 123 Respiratory 22 14 19 Rate Blood Pressure 124/89 118/88 (mmHg) O2 Sat by Pulse 93 92 92 Oximetry 12/19/17 12/19/17 12/19/17 09:15 09:30 09:45 Temperature Pulse Rate 125 123 118 Respiratory 20 17 17 Rate Blood Pressure 130/103 140/97 131/92 (mmHg) O2 Sat by Pulse 92 93 97 Oximetry 12/19/17 12/19/17 12/19/17 10:00 10:01 10:20 Temperature Pulse Rate 123 123 123 Respiratory 16 20 20 Rate Blood Pressure 136/85 138/96 (mmHg) O2 Sat by Pulse 97 97 97 Oximetry 12/19/17 12/19/17 12/19/17 10:30 10:46 11:00 Temperature Pulse Rate 118 116 Respiratory 21 16 14 Rate Blood Pressure 133/89 140/95 (mmHg) O2 Sat by Pulse 96 96 Oximetry 12/19/17 12/19/17 12/19/17 11:01 11:30 12:00 Temperature Pulse Rate 115 119 111 Respiratory 12 17 16 Rate Blood Pressure 133/97 136/103 (mmHg) O2 Sat by Pulse 96 97 97 Oximetry 12/19/17 12/19/17 12/19/17 12:01 12:30 13:00 Temperature Pulse Rate 113 112 114 Respiratory 16 15 17 Rate Blood Pressure 119/97 134/97 (mmHg) O2 Sat by Pulse 97 97 98 Oximetry 12/19/17 12/19/17 12/19/17 13:01 13:30 14:00 Temperature Pulse Rate 112 164 Respiratory 18 16 23 Rate Blood Pressure 133/92 (mmHg) O2 Sat by Pulse 97 95 Oximetry 12/19/17 14:30 Temperature Pulse Rate 129 Respiratory 19 Rate Blood Pressure 139/118 (mmHg) O2 Sat by Pulse 94 Oximetry Oxygen Devices in Use Now: Nasal Cannula Appearance: Young obese lady lying in bed in NAD. Eyes: No Scleral Icterus Ears/Nose/Mouth/Throat: Mucous Membranes Moist Neck: Trachea Midline Respiratory: Symmetrical Chest Expansion and Respiratory Effort, Clear to Auscultation Cardiovascular: RRR - Normal S1 and S2 Abdominal: - - Obese, epigastric tenderness, BS+ Neurological: - - Lethargic, but easily arousable, Ox3 Result Diagrams: 12/19/17 05:41 12/19/17 13:00 Assess/Plan/Problems-Billing Assessment: Mrs. Boateng is a 32yo F with PMH of obesity, s/p gastric bypass, cholelithiasis, s/p cholecystectomy, alcohol use, who presented to ED with c/o abdominal pain, found to have pancreatitis. - Patient Problems (1) SIRS (systemic inflammatory response syndrome) Comment: - Met SIRS criteria with tachycardia and CO2<32. - Source is pancreatitis. - No evidence of infection at this time. (2) Pancreatitis Comment: - Probably alcohol related. - Patient admits to drinking half a bottle of vodka 3x/week, last drink 3 days ago. - She did have a greasy meal last week followed by some nausea, but no pain. She 's s/p cholecystectomy, but she could form crystals/stone in her CBD. - GI and Critical care consult appreciated. - Continue IVF and supportive care. - Start clears liquids. - NPO, aggressive IVF, symptomatic treatment. - Will transfer to ICU for close monitoring. (3) Lactic acidosis Comment: - Secondary to pancreatitis. - Resolved. (4) Alcohol use Comment: - Patient admits drinking half a bottle of vodka 3x/week. - MCV is elevated, AST/ALT are elevated with a 2:1 ratio. - Patient advised about importance of not drinking alcohol with her h/o pancreatitis now. (5) Alcohol withdrawal Comment: - Her tachycardia, HTN, mild diaphoresis, and tremors are compatible with ETOH withdrawal. - Continue WAM protocol with Ativan taper. - Thiamine, MVI, and folate. - SW evaluation to assist with community resources. (6) Colitis Comment: - CT showed ascending colon mild circumferential wall thickening suggestive of colitis - suspect inflammation secondary to pancreatitis. - No indication for antibiotics at this time. (7) DVT prophylaxis Comment: - SQ heparin. (8) Full code status Status and Disposition: Inpatient for management of acute pancreatitis.
[2017-12-20] MEDS: HYDROmorphone INJ* 2 MG/ML CARPUJECT SYRINGE IV SLOW PU PRN ×4 (02:20→20:31)
[2017-12-20] MEDS: LORazepam INJ* 2 MG/ML 1 ML VIAL IV SCH ×2 (03:05→15:25)
--- NOTE | 2017-12-20 05:25 | PN ---
GASTROENTEROLOGY PROGRESS NOTE: DATE OF PROCEDURE: 12/19/17 SUBJECTIVE: Ms. Boateng is now in the intensive care unit. She is on [place] protocol receiving loraze barry. She has received significant IV hydration and states her abdomen is feeling much better today. She is sitting in a chair currently. Her white blood count today is 7.1, hematocrit of 35. Her live r function tests reveal a total bilirubin of 2.2, AST of 101, ALT of 53, alk phos of 52. Lipase is d own from 4350 yesterday to 1489 today. Her albumin is down to 3.1 and calcium down from 7.4 to 6.9. Her sodium is 138, potassium is 3.4, BUN of 3, creatinine of 0.4. The patient has been afebrile. IMPRESSION: Acute pancreatitis likely due to alcohol. Of note, alcohol on admission was 293. The p atient is on [facility] protocol. Hepatitis serology was all negative. RECOMMENDATIONS: At this point, I would continue current excellent management with hydration, WAM pr otocol, n.p.o. status, and pain medication. The patient seems to be improving. Monitor her laborato ry studies as is. [id number]/[facility] #: [id number]
[2017-12-20] MEDS: Heparin VIAL(*) 5000 UNITS/ML VIAL (FIVE THOUSAND) SUBCUT SCH ×3 (05:41→20:31)
[2017-12-20 06:06] LABS: ABS Basophils 0.1 10^3/ul (0-0.2); ABS Eosinophils 0.1 10^3/ul (0-0.6); ABS Lymphocytes 1.3 10^3/ul (1.0-4.8); ABS Monocytes 0.9 10^3/ul (0-0.8); ABS Nucleated RBC 0 10^3/ul; Eosinophil % 1.8 % (0-6); Hematocrit 35 % (35-47); Hemoglobin 11.8 g/dl (12.0-16.0); Lymphocyte % 20.7 % (25-47); Mean Corpuscular HGB Conc 33 g/dl (31-36); Mean Corpuscular Hemoglobin 33 pg (27-31); Mean Corpuscular Volume 100 fL (80-97); Mean Platelet Volume 8.7 um3 (7.4-10.4); Nucleated Red Blood Cells % 0; Platelet Count 92 10^3/ul (150-450); Red Blood Count 3.54 10^6/ul (4.0-5.4); Red Cell Distribution Width 13 % (10.5-15); White Blood Count 6.5 10^3/ul (3.5-10.8)
[2017-12-20 06:35] LABS: EGFR Non-African American 186.2 (>60)
[2017-12-20] MEDS: Folic Acid TAB* 1 MG PO SCH (08:10)
[2017-12-20] MEDS: Famotidine TAB* 20 MG PO SCH (08:10)
[2017-12-20] MEDS: Multivitamins/Minerals TAB PO SCH (08:10)
[2017-12-20] MEDS: Thiamine TAB* 100 MG TAB PO SCH (08:10)
[2017-12-20] MEDS ORDERED: Potassium Phosphate IV* 5 MMOLE in NS 0.9% 250 ML* 250 ML IVPB ONE (08:15)
--- NOTE | 2017-12-20 14:00 | PN ---
Subjective Date of Service: 12/20/17 Interval History: HOSPITALIST PROGRESS NOTE Patient seen and examined at bedside. She feels better today. Very tired, but abdominal pain and nausea are less intense. Tolerating clear liquids. Passing flatus and liquid stool. Family History: Unchanged from Admission Social History: Unchanged from Admission Past Medical History: Unchanged from Admission Objective Active Medications: Acetaminophen (Tylenol Tab*) 650 mg PO Q4H PRN PRN Reason: FEVER/PAIN Last Admin: 12/18/17 21:40 Dose: 650 mg Al Hydrox/Mg Hydrox/Simethicone (Maalox Plus*) 30 ml PO Q6H PRN PRN Reason: INDIGESTION Docusate Sodium (Colace Cap*) 100 mg PO BID PRN PRN Reason: CONSTIPATION Famotidine (Pepcid Tab*) 20 mg PO DAILY [facility] Last Admin: 12/20/17 08:10 Dose: 20 mg Folic Acid (Folvite Tab*) 1 mg PO DAILY [facility] Last Admin: 12/20/17 08:10 Dose: 1 mg Heparin Sodium (Porcine) (Heparin Vial(*)) 5,000 units SUBCUT Q8HR [facility] Last Admin: 12/20/17 05:41 Dose: 5,000 units Hydromorphone HCl (Dilaudid Inj*) 1 mg IV SLOW PU Q4H PRN PRN Reason: PAIN Last Admin: 12/20/17 08:10 Dose: 1 mg Potassium Phosphate 5 mmole/ (Sodium Chloride) 251.6667 mls @ 42 mls/hr IVPB ONCE ONE Stop: 12/20/17 14:14 Last Admin: 12/20/17 08:53 Dose: 42 mls/hr Lorazepam (Ativan Inj*) 1 mg IV Q12H [facility] PRN Reason: Taper Stop: 12/21/17 06:59 Last Admin: 12/20/17 03:05 Dose: 1 mg Lorazepam (Ativan Tab(*)) 0 - 6 mg PO .PER [facility] PROTOCOL [facility] PRN Reason: Protocol Last Admin: 12/19/17 20:48 Dose: 3 mg Multivitamins/Minerals (Theragran/Minerals Tab*) 1 tab PO DAILY [facility] Last Admin: 12/20/17 08:10 Dose: 1 tab Ondansetron HCl (Zofran Inj*) 4 mg IV Q6H PRN PRN Reason: NAUSEA Last Admin: 12/18/17 16:13 Dose: 4 mg Prochlorperazine Edisylate (Compazine Inj*) 10 mg IV Q6H PRN PRN Reason: NAUSEA/VOMITING Last Admin: 12/18/17 10:56 Dose: 10 mg Senna (Senokot Tab*) 1 tab PO BID PRN PRN Reason: CONSTIPATION Thiamine HCl (Vitamin B-1 Tab*) 100 mg PO DAILY [facility] Last Admin: 12/20/17 08:10 Dose: 100 mg Vital Signs - 8 hr 12/20/17 12/20/17 12/20/17 06:00 06:30 07:00 Temperature Pulse Rate 113 122 103 Respiratory 19 15 15 Rate Blood Pressure 124/111 128/94 141/92 (mmHg) O2 Sat by Pulse 94 93 93 Oximetry 12/20/17 12/20/17 12/20/17 07:01 07:17 07:30 Temperature 98.4 F Pulse Rate 121 103 Respiratory 21 19 Rate Blood Pressure 129/103 (mmHg) O2 Sat by Pulse 95 95 Oximetry 12/20/17 12/20/17 12/20/17 08:00 08:10 08:15 Temperature Pulse Rate 130 108 Respiratory 19 19 17 Rate Blood Pressure 143/105 143/106 (mmHg) O2 Sat by Pulse 96 94 Oximetry 12/20/17 12/20/17 12/20/17 08:30 09:00 09:01 Temperature Pulse Rate 110 108 113 Respiratory 16 14 16 Rate Blood Pressure 119/92 138/104 (mmHg) O2 Sat by Pulse 93 92 92 Oximetry 12/20/17 12/20/17 12/20/17 09:30 10:00 10:11 Temperature Pulse Rate 103 Respiratory 13 36 20 Rate Blood Pressure 125/106 133/109 (mmHg) O2 Sat by Pulse 92 Oximetry 12/20/17 12/20/17 12/20/17 10:30 11:00 11:01 Temperature Pulse Rate Respiratory 17 13 13 Rate Blood Pressure 128/96 137/100 (mmHg) O2 Sat by Pulse Oximetry 12/20/17 12/20/17 12/20/17 11:31 11:48 12:00 Temperature 98.2 F Pulse Rate Respiratory 21 19 Rate Blood Pressure 122/94 127/82 (mmHg) O2 Sat by Pulse Oximetry 12/20/17 12/20/17 12/20/17 12:01 12:30 13:00 Temperature Pulse Rate Respiratory 21 18 21 Rate Blood Pressure 130/75 (mmHg) O2 Sat by Pulse Oximetry 12/20/17 13:35 Temperature 98.1 F Pulse Rate 112 Respiratory 20 Rate Blood Pressure 127/66 (mmHg) O2 Sat by Pulse 99 Oximetry Oxygen Devices in Use Now: None Appearance: Young obese lady lying in a recliner in NAD. Eyes: No Scleral Icterus Ears/Nose/Mouth/Throat: Mucous Membranes Moist Neck: Trachea Midline Respiratory: Symmetrical Chest Expansion and Respiratory Effort, Clear to Auscultation - decreased in both bases Cardiovascular: RRR - Normal S1 and S2 Abdominal: - - Mild epigastric tenderness, NG, NR, BS+ and increased. Extremities: No Edema Neurological: Alert and Oriented x 3, NL Muscle Strength and Tone Result Diagrams: 12/20/17 05:50 12/20/17 05:50 Assess/Plan/Problems-Billing Assessment: Mrs. Boateng is a 32yo F with PMH of obesity, s/p gastric bypass, cholelithiasis, s/p cholecystectomy, alcohol use, who presented to ED with c/o abdominal pain, found to have pancreatitis. - Patient Problems (1) SIRS (systemic inflammatory response syndrome) Comment: - Met SIRS criteria with tachycardia and CO2<32. - Source is pancreatitis. - No evidence of infection at this time. (2) Pancreatitis Comment: - Probably alcohol related. - Patient admits to drinking half a bottle of vodka 3x/week. - MRCP negative for CBD stone. - GI and Critical care consult appreciated. - Continue supportive care. - Continue clears liquids as tolerated. - Transfer to Telemetry floor. (3) Lactic acidosis Comment: - Secondary to pancreatitis. - Resolved. (4) Alcohol use Comment: - Patient admits drinking half a bottle of vodka 3x/week. - MCV is elevated, AST/ALT are elevated with a 2:1 ratio. - Patient advised about importance of not drinking alcohol with her h/o pancreatitis now. (5) Alcohol withdrawal Comment: - Her tachycardia, HTN, mild diaphoresis, and tremors are compatible with ETOH withdrawal. - Continue [facility] protocol with Ativan taper. - Thiamine, MVI, and folate. - evaluation to assist with community resources. (6) Colitis Comment: - CT showed ascending colon mild circumferential wall thickening suggestive of colitis - suspect inflammation secondary to pancreatitis. - No indication for antibiotics at this time. (7) DVT prophylaxis Comment: - SQ heparin. (8) Full code status Status and Disposition: Inpatient for management of acute pancreatitis. Transfer to telemetry floor.
[2017-12-20] MEDS: NS 0.9% 1000 ML* 1,000 ML IV SCH (15:28)
--- NOTE | 2017-12-20 19:00 | PN ---
Progress Note - Progress Note Date of Service: 12/20/17 - Gastroenterology Note: Patient seen and examined. No new overnight issues. Transferred out of ICU. Abdominal pain is slightly improved. Tolerating clear liquids. No nausea/ emesis. Liquid brown bowel movements. No rectal bleeding. Vital Signs: Temp Pulse Resp BP Pulse Ox 98.1 F 107 16 124/73 99 12/20/17 18:00 12/20/17 18:00 12/20/17 18:00 12/20/17 18:00 12/20/17 18:00 Physical Examination: GENERAL: NAD. ABDOMEN: Soft, NT/ND. +BS in 4 quadrants. Laboratory Results - last 24 hr 12/20/17 12/20/17 05:50 05:50 WBC 6.5 RBC 3.54 L Hgb 11.8 L Hct 35 MCV 100 H MCH 33 H MCHC 33 RDW 13 Plt Count 92 L MPV 8.7 Neut % (Auto) 62.4 Lymph % (Auto) 20.7 L [place] % (Auto) 14.1 H Eos % (Auto) 1.8 Baso % (Auto) 1.0 Absolute Neuts (auto) 4.0 Absolute Lymphs (auto) 1.3 Absolute Monos (auto) 0.9 H Absolute Eos (auto) 0.1 Absolute Basos (auto) 0.1 Absolute Nucleated RBC 0 Nucleated RBC % 0 Sodium 141 Potassium 3.5 D Chloride 105 Carbon Dioxide 29 Anion Gap 7 BUN 2 L Creatinine 0.40 L Est GFR ( Amer) 239.4 Est GFR (Non-Af Amer) 186.2 BUN/Creatinine Ratio 5.0 L Glucose 91 Calcium 7.4 L Phosphorus 1.4 L Magnesium 2.1 Total Bilirubin 1.70 H AST 86 H ALT 49 Alkaline Phosphatase 72 Total Protein 5.4 L Albumin 3.1 L Globulin 2.3 Albumin/Globulin Ratio 1.3 Lipase 583 H A/P: 32 yo female with Etoh abuse who presented with acute pancreatitis and elevated LFTs. 1. Elevated LFTs - improving. ~Secondary to pancreatitis. ~Hepatitis panel negative. ~MRCP negative for biliary obstruction. ~TG normal. 2. Acute pancreatitis - improving. ~Continue IVF hydration. ~Clear liquids today. 3. Etoh abuse ~Encouraged etoh cessation. Please call us with any further questions or concerns. Karen Huber D.O.
[2017-12-21] MEDS: HYDROmorphone INJ* 2 MG/ML CARPUJECT SYRINGE IV SLOW PU PRN ×2 (00:33→09:01)
[2017-12-21] MEDS: NS 0.9% 1000 ML* 1,000 ML IV SCH ×3 (02:10→18:32)
[2017-12-21] MEDS: LORazepam INJ* 2 MG/ML 1 ML VIAL IV SCH (02:10)
[2017-12-21] MEDS: Heparin VIAL(*) 5000 UNITS/ML VIAL (FIVE THOUSAND) SUBCUT SCH ×3 (05:04→21:05)
[2017-12-21 06:31] LABS: EGFR Non-African American 259.5 (>60)
[2017-12-21] MEDS: Famotidine TAB* 20 MG PO SCH (09:01)
[2017-12-21] MEDS: Folic Acid TAB* 1 MG PO SCH (09:01)
[2017-12-21] MEDS: Multivitamins/Minerals TAB PO SCH (09:01)
[2017-12-21] MEDS: Thiamine TAB* 100 MG TAB PO SCH (09:01)
[2017-12-21] MEDS ORDERED: Potassium Phosphate IV* 15 MMOLE in NS 0.9% 250 ML* 250 ML IVPB ONE (10:13)
[2017-12-21] MEDS ORDERED: HYDROmorphone INJ* 2 MG/ML CARPUJECT SYRINGE IV SLOW PU PRN (10:31)
--- NOTE | 2017-12-21 10:39 | PN ---
Subjective Date of Service: 12/21/17 Interval History: Clear diet this AM without pain, Denies pain but has taken hydromorphone No anxiety, tremor or withdrawal symptoms Tearful when she was told she will not go home today Episode of hallucination overnight - thought there were cats in the bed Family History: Unchanged from Admission Social History: Unchanged from Admission Past Medical History: Unchanged from Admission Objective Active Medications: Acetaminophen (Tylenol Tab*) 650 mg PO Q4H PRN PRN Reason: FEVER/PAIN Last Admin: 12/18/17 21:40 Dose: 650 mg Al Hydrox/Mg Hydrox/Simethicone (Maalox Plus*) 30 ml PO Q6H PRN PRN Reason: INDIGESTION Docusate Sodium (Colace Cap*) 100 mg PO BID PRN PRN Reason: CONSTIPATION Famotidine (Pepcid Tab*) 20 mg PO DAILY [facility] Last Admin: 12/21/17 09:01 Dose: 20 mg Folic Acid (Folvite Tab*) 1 mg PO DAILY [facility] Last Admin: 12/21/17 09:01 Dose: 1 mg Heparin Sodium (Porcine) (Heparin Vial(*)) 5,000 units SUBCUT Q8HR [facility] Last Admin: 12/21/17 05:04 Dose: 5,000 units Hydromorphone HCl (Dilaudid Inj*) 0.5 mg IV SLOW PU Q4H PRN PRN Reason: PAIN Potassium Phosphate 15 mmole/ (Sodium Chloride) 255 mls @ 42 mls/hr IVPB ONCE ONE Stop: 12/21/17 16:17 Calcium Gluconate 1 gm/ Sodium (Chloride) 60 mls @ 60 mls/hr IVPB ONCE ONE Stop: 12/21/17 17:59 Sodium Chloride (Ns 0.9% 1000 Ml*) 1,000 mls @ 150 mls/hr IV PER RATE [facility] Multivitamins/Minerals (Theragran/Minerals Tab*) 1 tab PO DAILY [facility] Last Admin: 12/21/17 09:01 Dose: 1 tab Ondansetron HCl (Zofran Inj*) 4 mg IV Q6H PRN PRN Reason: NAUSEA Last Admin: 12/18/17 16:13 Dose: 4 mg Prochlorperazine Edisylate (Compazine Inj*) 10 mg IV Q6H PRN PRN Reason: NAUSEA/VOMITING Last Admin: 12/18/17 10:56 Dose: 10 mg Senna (Senokot Tab*) 1 tab PO BID PRN PRN Reason: CONSTIPATION Thiamine HCl (Vitamin B-1 Tab*) 100 mg PO DAILY [facility] Last Admin: 12/21/17 09:01 Dose: 100 mg Vital Signs - 8 hr 12/21/17 12/21/17 12/21/17 02:46 03:34 03:45 Temperature 98.4 F Pulse Rate 103 Respiratory 22 16 20 Rate Blood Pressure 131/74 (mmHg) O2 Sat by Pulse 96 Oximetry 12/21/17 12/21/17 12/21/17 07:03 08:06 09:01 Temperature 99.6 F 98.5 F Pulse Rate 102 96 Respiratory 20 16 18 Rate Blood Pressure 131/76 139/91 (mmHg) O2 Sat by Pulse 96 99 Oximetry Oxygen Devices in Use Now: None Appearance: NAD, tearful Eyes: No Scleral Icterus, PERRLA Ears/Nose/Mouth/Throat: Clear Oropharnyx, Mucous Membranes Moist Neck: NL Appearance and Movements; NL JVP, Trachea Midline Respiratory: Symmetrical Chest Expansion and Respiratory Effort, Clear to Auscultation Cardiovascular: RRR Abdominal: - - NTTP Lymphatic: No Cervical Adenopathy Extremities: No Edema Neurological: Alert and Oriented x 3 Result Diagrams: 12/20/17 05:50 12/21/17 05:48 Assess/Plan/Problems-Billing Assessment: Mrs. Boateng is a 32yo F with PMH of obesity, s/p gastric bypass, cholelithiasis, s/p cholecystectomy, alcohol abuse, who presented to ED with c/ o abdominal pain, found to have pancreatitis. - Patient Problems (1) Pancreatitis Comment: - Probably alcohol related. - Patient admits to drinking half a bottle of vodka 3x/week. - MRCP negative for CBD stone. - GI and Critical care consult appreciated. - Continue supportive care. - advance to low fat this evening - increase NS to 150cchr repleat calcium, potassium, phosphorous decrease dilaudid to 0.5mg (2) Alcohol abuse Comment: no ativan x 48 hrs [facility]AM discontined 12/21 - Thiamine, MVI, and folate. - SW evaluation to assist with community resources. (3) Colitis Priority: High Comment: - CT showed ascending colon mild circumferential wall thickening suggestive of colitis - suspect inflammation secondary to pancreatitis. - No indication for antibiotics at this time. (4) SIRS (systemic inflammatory response syndrome) Comment: - Met SIRS criteria with tachycardia and CO2<32. - Source is pancreatitis. - No evidence of infection at this time. (5) Acute delirium Comment: hospital acquire - resolved Overnight in setting of pancreatitis, opioids, etoh (6) DVT prophylaxis Comment: - SQ heparin. Status and Disposition: Inpatient for management of acute pancreatitis.
[2017-12-21] MEDS ORDERED: Calcium Gluconate INJ* 1 GM in NS 0.9% 50 ML* 50 ML IVPB ONE (17:00)
[2017-12-21] MEDS ORDERED: LORazepam TAB(*) 0.5 MG PO PRN (21:21)
[2017-12-22] MEDS: NS 0.9% 1000 ML* 1,000 ML IV SCH ×2 (01:44→08:38)
[2017-12-22] MEDS: Heparin VIAL(*) 5000 UNITS/ML VIAL (FIVE THOUSAND) SUBCUT SCH (05:35)
[2017-12-22 06:57] LABS: EGFR Non-African American 232.5 (>60)
[2017-12-22] MEDS: Thiamine TAB* 100 MG TAB PO SCH (08:36)
[2017-12-22] MEDS: Multivitamins/Minerals TAB PO SCH (08:36)
[2017-12-22] MEDS: Acetaminophen TAB* 325 MG PO PRN (08:37)
[2017-12-22] MEDS: Folic Acid TAB* 1 MG PO SCH (08:37)
[2017-12-22] MEDS: Famotidine TAB* 20 MG PO SCH (08:37)
[2017-12-22] MEDS ORDERED: Potassium Phosphate IV* 15 MMOLE in NS 0.9% 250 ML* 250 ML IVPB ONE (12:00)
[2017-12-22] MEDS ORDERED: Potassium Chlor TAB* 20 MEQ TAB.ER PO ONE (12:24)
[2017-12-22 13:09] VITALS: BP 140/76
--- NOTE | 2017-12-22 22:11 | DS ---
CC: Dr. Gutiérrez * DISCHARGE SUMMARY: DATE OF ADMISSION: 12/17/17 DATE OF DISCHARGE: 12/22/17 PRIMARY CARE PHYSICIAN: Dr. Gutiérrez. PRIMARY DIAGNOSIS: Pancreatitis. SECONDARY DIAGNOSES: Include: 1. Alcohol abuse. 2. Colitis. 3. Acute delirium. 4. Tobacco abuse. MEDICATIONS ON DISCHARGE: Include acetaminophen 650 mg every 4 hours as needed for pain. PERTINENT IMAGING PERFORMED DURING HOSPITAL STAY: Includes CT of abdomen and pelvis, impression: Findings most consistent with acute pancreatitis, pancreas is enlarged. No pancreatic ductal distention or calcifications. There is stranding and fluid tracking along the pancreas extending into the splenic hilum , most consistent with pancreatitis. No evidence for hemorrhage or necrosis. There is a nodule area measuring 2.0 cm in size, possibly representing enlarged lymph node versus exophytic enlargement of the pancreatic head. MRCP negative for biliary dilatation or common bile duct stones. Acute pancreatitis and moderately large volume with infiltrative peripancreatic fluid without significant change or evidence for loculated retroperitoneal fluid collection. HISTORY OF PRESENT ILLNESS AND HOSPITAL COURSE: This is a 32-year-old female with past medical history as outlined in history of present illness on the day of admission including gastric bypass, gallstones, morbid obesity, presented to the hospital with abdominal pain, nausea, vomiting and was found with evidence for pancreatitis in the setting of CAT scan as well as MRCP. She had an elevated alcohol level of 293 on presentation. Does not endorse heavy alcohol use consistently, but sporadic heavy alcohol use which was thought to be the etiology of her pancreatitis. She was treated with vigorous IV fluid resuscitation, n.p.o. status, and pain management. There was also evidence of colitis on CAT scan thought to be in the setting of alcohol use. She was maintained in the ICU and managed on the [facility] protocol for alcohol withdrawal. She improved and was discharged to the floor. Her diet was advanced slowly which she tolerated for 48 hours prior to her discharge. She had not received any medications from the [facility] protocol for over 72 hours upon her discharge. She had weaned herself from all IV narcotics and was only receiving Tylenol at the time of her discharge. She was counseled at length of slow reintroduction of normal foods back to her diet including using low fat diet for the next 3 to 4 days and she acknowledged understanding. At followup, please; 1. Continue to pediatric genetic counselor alcohol cessation. 2. Blood pressure sporadically elevated throughout the hospital stay, reevaluated for need of medication. 3. No other specific labs or vitals are pending at the time of this discharge. Reasons to return to the hospital included, but not limited to recurrent or worsening symptoms including abdominal pain, nausea, vomiting, lightheadedness, loss of consciousness, chest pain, shortness of breath, and ability to tolerate her medications were discussed at length with the patient. She acknowledged understanding. TIME SPENT: Greater than 60 minutes were spent on this discharge of this patient, greater than half was spent [id number] with the patient. [id number]/[facility] #: [id number] CHERRI
== END 2017-12-22 13:55 | disposition home or self-care (01) | DRG 249 ==
LOC: ED 18:04 → SSU 23:13 → MEDTELE 12-18 02:51 → ICU 12-18 15:59 → MEDTELE 12-20 13:27
PROVIDERS: ADMIT Pediatrics; ATTEND Internal Medicine
DX: K52.89 Other specified noninfective gastroenteritis and colitis (principal); K85.20 Alcohol induced acute pancreatitis without necrosis or infection; E87.2 Acidosis; F10.239 Alcohol dependence with withdrawal, unspecified; R65.10 Systemic inflammatory response syndrome (SIRS) of non-infectious origin without acute organ dysfunction; Z68.41 Body mass index [BMI] 40.0-44.9, adult; K75.81 Nonalcoholic steatohepatitis (NASH); R41.0 Disorientation, unspecified; F17.210 Nicotine dependence, cigarettes, uncomplicated; E66.01 Morbid (severe) obesity due to excess calories; Y90.8 Blood alcohol level of 240 mg/100 ml or more; Z82.49 Family history of ischemic heart disease and other diseases of the circulatory system; Z98.84 Bariatric surgery status
CPT/HCPCS: 36415; 74177; 74181; 76376; 76700; 76857; 80048; 80053; 80061; 80074; 80320; 81003; 82150; 82330; 83605; 83690; 83735; 84100; 84478; 84702; 85025; 85060; 85610; 85652; 85730; 86140; 99285; A9270-GY; G0480; J0610; J0780; J1170; J1644; J1956; J2060; J2270; J2765; J3411; J3475; J3480; J3490; Q9967

== ENCOUNTER 2018-02-19 13:33 | Inpatient (IN) | payer BC ==
[2018-02-19 14:51] LABS: ABS Basophils 0.1 10^3/ul (0-0.2); ABS Eosinophils 0 10^3/ul (0-0.6); ABS Lymphocytes 1.4 10^3/ul (1.0-4.8); ABS Monocytes 0.6 10^3/ul (0-0.8); ABS Neutrophils 3.4 10^3/ul (1.5-7.7); ABS Nucleated RBC 0 10^3/ul; Eosinophil % 0.5 % (0-6); Hematocrit 41 % (35-47); Hemoglobin 13.6 g/dl (12.0-16.0); Mean Corpuscular HGB Conc 34 g/dl (31-36); Mean Corpuscular Hemoglobin 34 pg (27-31); Mean Corpuscular Volume 101 fL (80-97); Mean Platelet Volume 8.2 um3 (7.4-10.4); Nucleated Red Blood Cells % 0; Platelet Count 161 10^3/ul (150-450); Red Blood Count 4.02 10^6/ul (4.00-5.40); Red Cell Distribution Width 16 % (10.5-15); White Blood Count 5.5 10^3/ul (3.5-10.8)
[2018-02-19 15:36] LABS: EGFR Non-African American 126.3 (>60)
[2018-02-19] MEDS ORDERED: LORazepam INJ* 2 MG/ML 1 ML VIAL IV PUSH ONE (16:11)
[2018-02-19] MEDS ORDERED: Ondansetron INJ* 2 MG/ML VIAL IV ONE (16:11)
[2018-02-19] MEDS ORDERED: Morphine VIAL* 4 MG/ML VIAL (1 ml vial) IV ONE (16:11)
[2018-02-19] MEDS ORDERED: Iohexol 300* (CONTRAST) 10 ML SDV IV ONE (16:25)
--- NOTE | 2018-02-19 16:34 | ED ---
Abdominal Pain/Female - HPI Summary HPI Summary: This pt is a 32 y/o female presenting to [facility] c/o abd pain for the past 3 days associated with nausea and vomiting. Pt reports her symptoms have gradually worsened. She states these symptoms feel like the last time she had pancreatitis. Pt notes her pain is located around her epigastric area and upper chest area. Pt reports "I tried to stop drinking alcohol" but began drinking again last month. She drinks vodka every day, approximately 1/3 of a handle. Her last drink was this morning. Pt has been through alcohol withdrawal before and notes she usually has tremors. Today she also c/o tremors. LMP: last month (states she had 3 weeks of heavy flow period). Denies tobacco use. PMHx includes pancreatitis, gastric bypass, hernia repair, surgical removal of kidney stones. No gallstones or hypertrygleceridemia. NKDA. - History of Current Complaint Chief Complaint: EDAbdPain Stated Complaint: CHEST/ABD PAIN Time Seen by Provider: 02/19/18 16:06 Hx Obtained From: Patient Hx Last Menstrual Period: 12/31/16 Onset/Duration: Lasting Days, Still Present Timing: Days Severity Currently: Severe Pain Intensity: 9 Pain Scale Used: 0-10 Numeric Location: Epigastric Allergies/Adverse Reactions: Allergies Allergy/AdvReac Type Severity Reaction Status Date / Time No Known Allergies Allergy Verified 02/19/18 13:48 Home Medications: Home Medications NK [No Home Medications Reported] 02/19/18 [History Confirmed 02/19/18] PMH/Surg Hx/FS Hx/Imm Hx Endocrine/Hematology History: Reports: Hx Anemia - POST , OK NOW Denies: Hx Diabetes, Hx Thyroid Disease Cardiovascular History: Denies: Hx Hypertension, Hx Pacemaker/ICD Respiratory History: Denies: Hx Asthma, Hx Chronic Obstructive Pulmonary Disease (COPD) GI History: Reports: Hx Gastroesophageal Reflux Disease, Other GI Disorders - GASTRIC BYPASS 04/12/15 Denies: Hx Ulcer History: Reports: Hx Kidney Stones - LEFT RENAL CALCULI-SVETLANA LITHO Denies: Hx Renal Disease Musculoskeletal History: Reports: Hx Tendonitis - IN BOTH HANDS DURING , OK NOW Sensory History: Reports: Hx Contacts or Glasses - not /c patient Denies: Hx Hearing Aid Opthamlomology History: Reports: Hx Contacts or Glasses - not /c patient Neurological History: Denies: Hx Headaches Psychiatric History: Reports: Hx Anxiety Denies: Hx Panic Disorder - Surgical History Surgery Procedure, Year, and Place: 11/2004 D&C- [facility]. 06/2013 REMOVAL OF WISDOM TEETH- [facility]. Gastric bypass - 04/2015. Hernia repair March 2016. galbladder. kidney stones Hx Anesthesia Reactions: No Infectious Disease History: No Infectious Disease History: Denies: Hx Clostridium Difficile, Hx Hepatitis, Hx Human Immunodeficiency Virus (HIV), Hx of Known/Suspected MRSA, Hx Shingles, Hx Tuberculosis, Hx Known/ Suspected VRE, Hx Known/Suspected VRSA, History Other Infectious Disease, Traveled Outside the [place] in Last 30 Days - Family History Known Family History: Positive: Hypertension, Other - father with diverticular disase Negative: Diabetes - Social History Alcohol Use: Occasionally Alcohol Amount: 3-4 X PER YEAR Substance Use Type: Reports: None, Marijuana Substance Use Comment - Amount & Last Used: x 1 week Smoking Status (MU): Former Smoker Type: Cigarettes Amount Used/How Often: 1 PPD FOR 6 YRS Length of Time of Smoking/Using Tobacco: 6 YRS Have You Smoked in the Last Year: Yes - [place]IJ[place] ONLY Review of Systems Negative: Fever, Chills Eyes: Negative ENT: Negative Positive: Abdominal Pain, Vomiting, Nausea Musculoskeletal: Negative Neurological: Other - tremors All Other Systems Reviewed And Are Negative: Yes Physical Exam - Summary Physical Exam Summary: Appearance: Well appearing, no pain distress Skin: warm, dry, reflects adequate perfusion. No lesions. Head/face: normal Eyes: EOMI, ANN ENT: moist mucous membranes. Neck: supple, non-tender Respiratory: CTA, breath sounds present Cardiovascular: RRR, pulses symmetrical Abdomen: epigastric tenderness, bowel sounds are diminished. No RUQ tenderness. Bowel: present Musculoskeletal: strength/ROM intact. No lower extremity edema. Neuro: sensory motor intact, A&Ox3. Tremors in her hands at rest. Triage Information Reviewed: Yes Vital Signs On Initial Exam: Initial Vitals Temp Pulse Resp BP Pulse Ox 98.2 F 93 18 144/100 98 02/19/18 13:44 02/19/18 13:44 02/19/18 13:44 02/19/18 13:44 02/19/18 13:44 Vital Signs Reviewed: Yes Diagnostics - Vital Signs Vital Signs Temp Pulse Resp BP Pulse Ox 02/19/18 13:44 98.2 F 93 18 144/100 98 - Laboratory Lab Results: Lab Results 02/19/18 02/19/18 Range/Units 14:39 14:39 WBC 5.5 (3.5-10.8) 10^3/ul RBC 4.02 (4.00-5.40) 10^6/ul Hgb 13.6 (12.0-16.0) g/dl Hct 41 (35-47) % MCV 101 H (80-97) fL MCH 34 H (27-31) pg MCHC 34 (31-36) g/dl RDW 16 H (10.5-15) % Plt Count 161 (150-450) 10^3/ul MPV 8.2 (7.4-10.4) um3 Neut % (Auto) 62.5 (38-83) % Lymph % (Auto) 25.0 (25-47) % [place] % (Auto) 10.2 H (0-7) % Eos % (Auto) 0.5 (0-6) % Baso % (Auto) 1.8 (0-2) % Absolute Neuts (auto) 3.4 (1.5-7.7) 10^3/ul Absolute Lymphs (auto) 1.4 (1.0-4.8) 10^3/ul Absolute Monos (auto) 0.6 (0-0.8) 10^3/ul Absolute Eos (auto) 0 (0-0.6) 10^3/ul Absolute Basos (auto) 0.1 (0-0.2) 10^3/ul Absolute Nucleated RBC 0 10^3/ul Nucleated RBC % 0 Sodium 136 (135-145) mmol/L Potassium 4.5 (3.5-5.0) mmol/L Chloride 95 L (101-111) mmol/L Carbon Dioxide 21 L (22-32) mmol/L Anion Gap 20 H (2-11) mmol/L BUN 6 (6-24) mg/dL Creatinine 0.56 (0.51-0.95) mg/dL Est GFR ( Amer) 152.8 (>60) Est GFR (Non-Af Amer) 126.3 (>60) BUN/Creatinine Ratio 10.7 (8-20) Glucose 81 (70-100) mg/dL Calcium 9.6 (8.6-10.3) mg/dL Total Bilirubin 1.50 H (0.2-1.0) mg/dL GGT Pending AST 115 H (13-39) U/L ALT 67 H (7-52) U/L Alkaline Phosphatase 65 (34-104) U/L Total Protein 7.1 (6.4-8.9) g/dL Albumin 4.5 (3.2-5.2) g/dL Globulin 2.6 (2-4) g/dL Albumin/Globulin Ratio 1.7 (1-3) Amylase 117 H (29-103) U/L Lipase Pending Beta HCG, Quant < 0.60 mIU/mL Serum Alcohol Pending Result Diagrams: 02/19/18 14:39 02/19/18 14:39 Lab Statement: Any lab studies that have been ordered have been reviewed, and results considered in the medical decision making process. - CT Abdomen/Pelvis CT CT Interpretation: Positive (See Comments) - IMPRESSION: 1. CT findings consistent with acute pancreatitis without significant interval change. 2. Possible right colonic colitis, unchanged. 3. Hepatomegaly with hepatic steatosis. 4. Cholecystectomy. 5. Gastric bypass surgery. Possible gastric ulceration. Dr. Teran has reviewed this radiology report. CT Interpretation Completed By: Radiologist - EKG 16:14 Cardiac Rate: NL - at 86 bpm EKG Rhythm: Sinus Rhythm ST Segment: Normal EKG Interpretation: Normal axis, intervals, ST. Abdominal Pain Fem Course/Dx - Course Course Of Treatment: Patient is status post gastric bypass and has history of alcoholic pancreatitis. She presents with similar symptoms. Her lipase is elevated at nearly 2800. A CT scan shows acute pancreatitis without abscess or pseudocyst. Her alcohol level is still 87. She is a vodka drinker. Her pain was treated as well as her tremor. Hospitalist was contacted and will admit the patient. - Diagnoses Differential Diagnosis: Positive: Other - Gallbladder versus triglycerides versus alcoholic cause to pancreatitis. Pancreatic abscess, pseudocyst Provider Diagnoses: Alcoholic pancreatitis, Alcoholism, Epigastric pain - Provider Notifications Discussed Care Of Patient With: Ja Crawford Time Discussed With Above Provider: 16:29 Instructed by Provider To: Admit As Inpatient Discharge - Sign-Out/Discharge Documenting (check all that apply): Patient Departure - Admit - Discharge Plan Condition: Fair Disposition: ADMITTED TO [facility] - Billing Disposition and Condition Condition: FAIR Disposition: Admitted to [facility]
[2018-02-19] MEDS ORDERED: NS 0.9% 1000 ML* 1,000 ML IV ONE (16:45)
[2018-02-19] MEDS ORDERED: LORazepam INJ* 2 MG/ML 1 ML VIAL IV PUSH PRN (16:48)
--- NOTE | 2018-02-19 16:57 | ADMNOTE ---
Subjective Date of Service: 02/19/18 Interval History: ADMISSION HISTORY AND PHYSICAL EXAM: Allergies Allergy/AdvReac Type Severity Reaction Status Date / Time No Known Allergies Allergy Verified 02/19/18 13:48 Home Medications Medication Instructions Recorded Confirmed Type NK [No Home Medications Reported] 02/19/18 02/19/18 History HPI: The patient was in her usual state of health until about 1-2 days ago. She had been drinking about 3/4 of a handle of vodka per day since her last discharge. She developed abd pain, N&V which gradually progressed. Her pain now is 9/10. The pain is across her lower chest and upper abdomen and is very similar to her previous episode of acute pancreatitis in 12/27. Family History: Findings - Mother of heart disease age 48. Father A&W. Social History: Findings - Lives with her who is her SDM. Her 2 children live with them. Quit smoking about age 21. Alcohol as in HPI. Past Medical History: Findings - Cholecystectomy, gastric bypass. 2 children. Review of Systems - Measurements Intake and Output: Intake and Output Last 24 Hours 02/17/18 02/18/18 02/19/18 02/20/18 06:59 06:59 06:59 06:59 Weight 230 lb - Review of Systems Constitutional Symptoms: Negative: Weight Gain, Weight Loss, Weakness, Fatigue, Fever, Night Sweats, Unexplained Falls, Other Dermatology: Positive: Normal HEENT: Positive: Normal Eyes: Positive: Normal Thyroid: Positive: Normal Pulmonary: Positive: Normal Cardiology: Positive: Normal Gastroenterology: Positive: Abdominal Pain, Nausea, Vomiting Genital - Urinary: Positive: Normal Genitourinay - Female: Positive: Other - irreg menses Musculoskeletal: Negative: Joint Pain, Joint Stiffness, Arthritis, Osteoporosis, Low Back Pain , Sciatica, Joint Deformities, Kyphoscoliosis, Other Endocrinology: Positive: Normal Hematologic/Lymphatic: Negative: Anemia, Easy Brusing, Hx Leukemia, Hx Lymphoma, Use of Anticoagulant, Use of Antiplatelet Drugs, Other Neurology: Positive: Normal Psychiatry: Positive: Depression Allergic/Immunologic: Negative: Hx Anaphylaxis, Hx Angioedema, Hx Environmental, Hx Seasonal, Athsma, Hx HIV, Immunocompromise, Swollen Glands LymphNodes, Other Objective Active Medications: Chlordiazepoxide (Librium Cap*) 25 mg PO TID [facility] Chlordiazepoxide (Librium Cap*) 25 mg PO Q3H PRN PRN Reason: ANXIETY Potassium Chloride/Dextrose (D5w 1/2 Ns Kcl 20 Meq 1000 Ml*) 1,000 mls @ 125 mls/hr IV PER RATE [facility]IS[facility] Sodium Chloride (Ns 0.9% 1000 Ml*) 1,000 mls @ 1,000 mls/hr IV ONCE ONE Stop: 02/19/18 17:44 Lorazepam (Ativan Inj*) 1 mg IV PUSH Q6H PRN PRN Reason: AGITATION Morphine Sulfate (Morphine Inj (Syringe)*) 2 mg IV Q2H PRN PRN Reason: PAIN Thiamine HCl (Vitamin B-1 Tab*) 200 mg PO DAILY [facility] Vital Signs - 8 hr 02/19/18 13:44 Temperature 98.2 F Pulse Rate 93 Respiratory 18 Rate Blood Pressure 144/100 (mmHg) O2 Sat by Pulse 98 Oximetry Oxygen Devices in Use Now: None Appearance: Alert, supine on ED stretcher. In fair spirits, looks uncomfortable. Eyes: No Scleral Icterus Ears/Nose/Mouth/Throat: Clear Oropharnyx, Mucous Membranes Moist Neck: NL Appearance and Movements; NL JVP, No Thyroid Enlargement, Masses Respiratory: Symmetrical Chest Expansion and Respiratory Effort, Clear to Auscultation, Clear to Percussion Cardiovascular: NL Sounds; No Murmurs; No JVD, RRR, No Edema, - Abdominal: No Hepatosplenomegaly, - - obese, soft, nl BS. mod tender all quadrants. 1 cm subcut mass LLQ, lymph-nod shaped. Extremities: No Edema, No Clubbing, Cyanosis, - Skin: No Rash or Ulcers, No Nodules or Sclerosis, - Neurological: Alert and Oriented x 3, NL Sensation Result Diagrams: 02/19/18 14:39 02/19/18 14:39 Additional Lab and Data: Lab Results 02/19/18 02/19/18 Range/Units 14:39 14:39 WBC 5.5 (3.5-10.8) 10^3/ul RBC 4.02 (4.00-5.40) 10^6/ul Hgb 13.6 (12.0-16.0) g/dl Hct 41 (35-47) % MCV 101 H (80-97) fL MCH 34 H (27-31) pg MCHC 34 (31-36) g/dl RDW 16 H (10.5-15) % Plt Count 161 (150-450) 10^3/ul MPV 8.2 (7.4-10.4) um3 Neut % (Auto) 62.5 (38-83) % Lymph % (Auto) 25.0 (25-47) % [place] % (Auto) 10.2 H (0-7) % Eos % (Auto) 0.5 (0-6) % Baso % (Auto) 1.8 (0-2) % Absolute Neuts (auto) 3.4 (1.5-7.7) 10^3/ul Absolute Lymphs (auto) 1.4 (1.0-4.8) 10^3/ul Absolute Monos (auto) 0.6 (0-0.8) 10^3/ul Absolute Eos (auto) 0 (0-0.6) 10^3/ul Absolute Basos (auto) 0.1 (0-0.2) 10^3/ul Absolute Nucleated RBC 0 10^3/ul Nucleated RBC % 0 Sodium 136 (135-145) mmol/L Potassium 4.5 (3.5-5.0) mmol/L Chloride 95 L (101-111) mmol/L Carbon Dioxide 21 L (22-32) mmol/L Anion Gap 20 H (2-11) mmol/L BUN 6 (6-24) mg/dL Creatinine 0.56 (0.51-0.95) mg/dL Est GFR ( Amer) 152.8 (>60) Est GFR (Non-Af Amer) 126.3 (>60) BUN/Creatinine Ratio 10.7 (8-20) Glucose 81 (70-100) mg/dL Calcium 9.6 (8.6-10.3) mg/dL Total Bilirubin 1.50 H (0.2-1.0) mg/dL GGT Pending AST 115 H (13-39) U/L ALT 67 H (7-52) U/L Alkaline Phosphatase 65 (34-104) U/L Total Protein 7.1 (6.4-8.9) g/dL Albumin 4.5 (3.2-5.2) g/dL Globulin 2.6 (2-4) g/dL Albumin/Globulin Ratio 1.7 (1-3) Amylase 117 H (29-103) U/L Lipase Pending Beta HCG, Quant < 0.60 mIU/mL Serum Alcohol Pending Assess/Plan/Problems-Billing Assessment: - Patient Problems (1) Pancreatitis Current Visit: No Status: Acute Code(s): K85.90 - ACUTE PANCREATITIS WITHOUT NECROSIS OR INFECTION, UNSP SNOMED Code(s): 33417908 Comment: - Probably alcohol related. - MRCP negative for CBD stone 12/18/17. IV fluids, analgesics, antiemetics. Clear liquid diet. (2) Alcohol abuse Current Visit: No Status: Acute Code(s): F10.10 - ALCOHOL ABUSE, UNCOMPLICATED SNOMED Code(s): 74789617 Comment: Scheduled and PRN chlordiazepoxide. PRN IV lorazepam. Daily thiamine PO. SW consult requested. (3) Alcoholic liver disease Current Visit: Yes Status: Acute Code(s): K70.9 - ALCOHOLIC LIVER DISEASE, UNSPECIFIED SNOMED Code(s): 89999140 Comment: Repeat CMP 02/20. Add-on INR.
[2018-02-19 17:08] LABS: INR 0.94 (0.77-1.02)
--- NOTE | 2018-02-19 17:30 | RAD ---
INDICATION: Pancreatitis COMPARISON: MR cholangiogram December 18, 2017; abdominal sonogram December 18, 2017; CT abdomen pelvis December 17, 2017 TECHNIQUE: Axial source images were obtained from the hemidiaphragms to the symphysis pubis following administration of intravenous contrast only. 139 mL of Omnipaque 300 was utilized. Coronal and sagittal reconstructed images were acquired. Lung bases: The lung bases are clear. Liver: The liver is enlarged with findings of hepatic steatosis. There are no masses. There is no ductal dilatation. Gallbladder: Cholecystectomy. Spleen: The spleen is normal in size. There are no masses. Pancreas: The pancreas is mildly prominent and edematous without definitive focal finding. No pseudocyst formation. There is moderate peripancreatic stranding with free fluid extending into the presacral space. This finding was also evident previously and appears unchanged. Adrenal glands: There is no evidence of adrenal mass. Kidneys: The kidneys are normal in size and position. There are prompt nephrograms and there is prompt excretion bilaterally. There are no renal parenchymal masses. There is no evidence of nephrolithiasis. Adenopathy: There is no evidence of adenopathy by size criteria. Fluid collections: No additional fluid collections. Vessels:There are no significant atherosclerotic changes involving the aorta. There is no focal aneurysm. The iliac vessels are normal in caliber. The IVC appears normal. GI tract: Mildly limited evaluation without oral contrast. Persistent mild thickening of the ascending colon may be related to mild colitis. Prior bariatric surgery. There is a small focus of air in the distal stomach which could be an area of ulceration. Consider endoscopic evaluation. Pelvic organs: The uterus and adnexa appear normal Bladder: There are no bladder masses. Abdominal and pelvic soft tissues: The extraperitoneal abdominal and pelvic soft tissues appear normal.. Osseous structures: There are no acute osseous findings. Other: None IMPRESSION: 1. CT FINDINGS CONSISTENT WITH ACUTE PANCREATITIS WITHOUT SIGNIFICANT INTERVAL CHANGE. 2. POSSIBLE RIGHT COLONIC COLITIS, UNCHANGED. 3. HEPATOMEGALY WITH HEPATIC STEATOSIS. 4. CHOLECYSTECTOMY. 5. GASTRIC BYPASS SURGERY. POSSIBLE GASTRIC ULCERATION.
[2018-02-19] MEDS: chlordiazePOXIDE CAP* 25 MG PO SCH ×2 (19:00→22:00)
[2018-02-19] MEDS: Thiamine TAB* 100 MG TAB PO SCH (19:01)
[2018-02-19] MEDS: Morphine VIAL* 4 MG/ML VIAL (1 ml vial) IV PRN ×2 (19:01→22:00)
[2018-02-19] MEDS: D5W 1/2 NS KCl 20 Meq 1000 ML* 1,000 ML IV SCH (22:29)
[2018-02-19] MEDS: Ondansetron ODT TAB* 4 MG PO PRN (22:29)
[2018-02-20] MEDS: Morphine VIAL* 4 MG/ML VIAL (1 ml vial) IV PRN ×2 (00:07→02:14)
[2018-02-20] MEDS: HYDROmorphone INJ* 0.5 MG/0.5 ML SYRINGE IV PRN ×7 (04:17→23:17)
[2018-02-20 06:53] LABS: ABS Basophils 0 10^3/ul (0-0.2); ABS Eosinophils 0.1 10^3/ul (0-0.6); ABS Lymphocytes 1.2 10^3/ul (1.0-4.8); ABS Monocytes 0.6 10^3/ul (0-0.8); ABS Neutrophils 1.9 10^3/ul (1.5-7.7); ABS Nucleated RBC 0 10^3/ul; Eosinophil % 1.6 % (0-6); Hematocrit 36 % (35-47); Hemoglobin 12.1 g/dl (12.0-16.0); Lymphocyte % 31.2 % (25-47); Mean Corpuscular HGB Conc 34 g/dl (31-36); Mean Corpuscular Hemoglobin 34 pg (27-31); Mean Corpuscular Volume 101 fL (80-97); Mean Platelet Volume 8.6 um3 (7.4-10.4); Nucleated Red Blood Cells % 0.3; Platelet Count 131 10^3/ul (150-450); Red Blood Count 3.53 10^6/ul (4.00-5.40); Red Cell Distribution Width 16 % (10.5-15); White Blood Count 3.8 10^3/ul (3.5-10.8)
[2018-02-20] MEDS: D5W 1/2 NS KCl 20 Meq 1000 ML* 1,000 ML IV SCH ×3 (07:07→23:47)
[2018-02-20 07:14] LABS: EGFR Non-African American 150.8 (>60)
[2018-02-20] MEDS: Thiamine TAB* 100 MG TAB PO SCH (09:01)
[2018-02-20] MEDS: chlordiazePOXIDE CAP* 25 MG PO SCH ×3 (09:03→20:40)
[2018-02-20] MEDS: Ondansetron ODT TAB* 4 MG PO PRN (09:03)
--- NOTE | 2018-02-20 09:55 | PN ---
Subjective Date of Service: 02/20/18 Interval History: Pain somewhat better. Some N&V. No shakes. Family History: Findings - Mother of heart disease age 48. Father A&W. Social History: Findings - Lives with her who is her SDM. Her 2 children live with them. Quit smoking about age 21. Alcohol as in HPI. Past Medical History: Findings - Cholecystectomy, gastric bypass. 2 children. Objective Active Medications: Chlordiazepoxide (Librium Cap*) 25 mg PO TID [facility] Stop: 02/20/18 23:00 Last Admin: 02/20/18 09:03 Dose: 25 mg Chlordiazepoxide (Librium Cap*) 25 mg PO Q3H PRN PRN Reason: ANXIETY Chlordiazepoxide (Librium Cap*) 25 mg PO BID [facility] Hydromorphone HCl (Dilaudid Inj*) 0.5 mg IV Q2H PRN PRN Reason: PAIN Last Admin: 02/20/18 07:06 Dose: 0.5 mg Potassium Chloride/Dextrose (D5w 1/2 Ns Kcl 20 Meq 1000 Ml*) 1,000 mls @ 125 mls/hr IV PER RATE [facility] Last Admin: 02/20/18 07:07 Dose: 125 mls/hr Lorazepam (Ativan Inj*) 1 mg IV PUSH Q6H PRN PRN Reason: AGITATION Last Admin: 02/20/18 02:19 Dose: 1 mg Ondansetron HCl (Zofran Odt Tab*) 4 mg PO Q6H PRN PRN Reason: n/v Last Admin: 02/20/18 09:03 Dose: 4 mg Prochlorperazine Edisylate (Compazine Inj*) 10 mg IV Q6H PRN PRN Reason: NAUSEA Thiamine HCl (Vitamin B-1 Tab*) 200 mg PO DAILY [facility] Last Admin: 02/20/18 09:01 Dose: Not Given Vital Signs - 8 hr 02/20/18 02/20/18 02/20/18 02:14 02:19 04:17 Temperature Pulse Rate Respiratory 18 18 16 Rate Blood Pressure (mmHg) O2 Sat by Pulse Oximetry 02/20/18 02/20/18 02/20/18 04:19 05:51 07:06 Temperature Pulse Rate Respiratory 16 16 16 Rate Blood Pressure (mmHg) O2 Sat by Pulse Oximetry 07/07/2902/20/18 02/20/18 07:58 09:03 09:04 Temperature 98.5 F Pulse Rate 94 Respiratory 16 16 16 Rate Blood Pressure 126/76 (mmHg) O2 Sat by Pulse 97 Oximetry Oxygen Devices in Use Now: None Appearance: Alert, supine in bed. In fair spirits. Looks comfortable. Eyes: No Scleral Icterus Abdominal: No Hepatosplenomegaly, - - Abd soft, only mildly tender today. Hypoactive BS. Extremities: No Edema, No Clubbing, Cyanosis, - Skin: No Rash or Ulcers, No Nodules or Sclerosis, - Neurological: Alert and Oriented x 3, NL Sensation Result Diagrams: 02/20/18 06:24 02/20/18 06:24 Additional Lab and Data: Lab Results 02/19/18 02/19/18 Range/Units 14:39 14:39 WBC 5.5 (3.5-10.8) 10^3/ul RBC 4.02 (4.00-5.40) 10^6/ul Hgb 13.6 (12.0-16.0) g/dl Hct 41 (35-47) % MCV 101 H (80-97) fL MCH 34 H (27-31) pg MCHC 34 (31-36) g/dl RDW 16 H (10.5-15) % Plt Count 161 (150-450) 10^3/ul MPV 8.2 (7.4-10.4) um3 Neut % (Auto) 62.5 (38-83) % Lymph % (Auto) 25.0 (25-47) % [place] % (Auto) 10.2 H (0-7) % Eos % (Auto) 0.5 (0-6) % Baso % (Auto) 1.8 (0-2) % Absolute Neuts (auto) 3.4 (1.5-7.7) 10^3/ul Absolute Lymphs (auto) 1.4 (1.0-4.8) 10^3/ul Absolute Monos (auto) 0.6 (0-0.8) 10^3/ul Absolute Eos (auto) 0 (0-0.6) 10^3/ul Absolute Basos (auto) 0.1 (0-0.2) 10^3/ul Absolute Nucleated RBC 0 10^3/ul Nucleated RBC % 0 Sodium 136 (135-145) mmol/L Potassium 4.5 (3.5-5.0) mmol/L Chloride 95 L (101-111) mmol/L Carbon Dioxide 21 L (22-32) mmol/L Anion Gap 20 H (2-11) mmol/L BUN 6 (6-24) mg/dL Creatinine 0.56 (0.51-0.95) mg/dL Est GFR ( Amer) 152.8 (>60) Est GFR (Non-Af Amer) 126.3 (>60) BUN/Creatinine Ratio 10.7 (8-20) Glucose 81 (70-100) mg/dL Calcium 9.6 (8.6-10.3) mg/dL Total Bilirubin 1.50 H (0.2-1.0) mg/dL GGT Pending AST 115 H (13-39) U/L ALT 67 H (7-52) U/L Alkaline Phosphatase 65 (34-104) U/L Total Protein 7.1 (6.4-8.9) g/dL Albumin 4.5 (3.2-5.2) g/dL Globulin 2.6 (2-4) g/dL Albumin/Globulin Ratio 1.7 (1-3) Amylase 117 H (29-103) U/L Lipase Pending Beta HCG, Quant < 0.60 mIU/mL Serum Alcohol Pending Assess/Plan/Problems-Billing Assessment: - Patient Problems (1) Pancreatitis Current Visit: No Status: Acute Code(s): K85.90 - ACUTE PANCREATITIS WITHOUT NECROSIS OR INFECTION, UNSP SNOMED Code(s): 07001605 Comment: - Probably alcohol related. - MRCP negative for CBD stone 12/18/17. IV fluids, analgesics, antiemetics. Clear liquid diet. Lipase 02/21. (2) Alcohol abuse Current Visit: No Status: Acute Code(s): F10.10 - ALCOHOL ABUSE, UNCOMPLICATED SNOMED Code(s): 55480492 Comment: Taper chlordiazepoxide. PRN IV lorazepam. Daily thiamine PO. SW consult requested. (3) Alcoholic liver disease Current Visit: Yes Status: Acute Code(s): K70.9 - ALCOHOLIC LIVER DISEASE, UNSPECIFIED SNOMED Code(s): 48554462 Comment: Repeat CMP 02/21. Add-on INR was 0.94 02/19.
[2018-02-20 12:57] LABS: Urine Appearance Clear; Urine Blood Negative (Negative); Urine Color Amber; Urine Ketones Trace (Negative); Urine Protein Negative (Negative); Urine Urobilinogen Positive (Negative)
[2018-02-20] MEDS: chlordiazePOXIDE CAP* 25 MG PO PRN (18:19)
[2018-02-20] MEDS: PROCHLORPERAZINE INJ 5 MG/ML 2 ML VIAL IV PRN (20:39)
[2018-02-21] MEDS: HYDROmorphone INJ* 0.5 MG/0.5 ML SYRINGE IV PRN (03:51)
[2018-02-21 07:23] LABS: EGFR Non-African American 186.2 (>60)
[2018-02-21] MEDS: D5W 1/2 NS KCl 20 Meq 1000 ML* 1,000 ML IV SCH (07:34)
[2018-02-21] MEDS: Thiamine TAB* 100 MG TAB PO SCH (07:36)
[2018-02-21] MEDS: chlordiazePOXIDE CAP* 25 MG PO SCH ×2 (07:36→20:16)
[2018-02-21] MEDS ORDERED: HYDROmorphone INJ* 0.5 MG/0.5 ML SYRINGE IV PRN (09:02)
[2018-02-21] MEDS ORDERED: Magnesium Hydroxide LIQ* 30 ML UDC PO PRN (09:27)
--- NOTE | 2018-02-21 09:37 | PN ---
Subjective Date of Service: 02/21/18 Interval History: Pain much better. Hungry. No BM since admission. Family History: Findings - Mother of heart disease age 48. Father A&W. Social History: Findings - Lives with her who is her SDM. Her 2 children live with them. Quit smoking about age 21. Alcohol as in HPI. Past Medical History: Findings - Cholecystectomy, gastric bypass. 2 children. Objective Active Medications: Chlordiazepoxide (Librium Cap*) 25 mg PO Q3H PRN PRN Reason: ANXIETY Last Admin: 02/20/18 18:19 Dose: 25 mg Chlordiazepoxide (Librium Cap*) 25 mg PO BID [facility] Last Admin: 02/21/18 07:36 Dose: 25 mg Hydromorphone HCl (Dilaudid Inj*) 0.5 mg IV Q4H PRN PRN Reason: PAIN Magnesium Hydroxide (Milk Of Magnesia Liq*) 60 ml PO Q4H PRN PRN Reason: CONSTIPATION Ondansetron HCl (Zofran Odt Tab*) 4 mg PO Q6H PRN PRN Reason: n/v Last Admin: 02/20/18 09:03 Dose: 4 mg Oxycodone HCl (Roxycodone Tab*) 5 mg PO Q4H PRN PRN Reason: PAIN Prochlorperazine Edisylate (Compazine Inj*) 10 mg IV Q6H PRN PRN Reason: NAUSEA Last Admin: 02/20/18 20:39 Dose: 10 units Thiamine HCl (Vitamin B-1 Tab*) 200 mg PO DAILY [facility] Last Admin: 02/21/18 07:36 Dose: 200 mg Vital Signs - 8 hr 02/21/18 02/21/18 02/21/18 03:51 03:52 05:16 Temperature 97.9 F Pulse Rate 96 Respiratory 18 20 18 Rate Blood Pressure 126/70 (mmHg) O2 Sat by Pulse 99 Oximetry 02/21/18 02/21/18 02/21/18 07:15 07:36 07:42 Temperature 98.4 F Pulse Rate 79 Respiratory 18 16 16 Rate Blood Pressure 111/60 (mmHg) O2 Sat by Pulse 98 Oximetry Oxygen Devices in Use Now: None Appearance: Alert, partly up in bed. In fair spirits. Looks comfortable. Eyes: No Scleral Icterus Abdominal: No Hepatosplenomegaly, - - Mildly tender to deep palpation, soft. Nl BS. Extremities: No Edema, No Clubbing, Cyanosis, - Skin: No Rash or Ulcers, No Nodules or Sclerosis, - Neurological: Alert and Oriented x 3, NL Sensation Result Diagrams: 02/20/18 06:24 02/21/18 06:23 Additional Lab and Data: Lab Results 02/19/18 02/19/18 Range/Units 14:39 14:39 WBC 5.5 (3.5-10.8) 10^3/ul RBC 4.02 (4.00-5.40) 10^6/ul Hgb 13.6 (12.0-16.0) g/dl Hct 41 (35-47) % MCV 101 H (80-97) fL MCH 34 H (27-31) pg MCHC 34 (31-36) g/dl RDW 16 H (10.5-15) % Plt Count 161 (150-450) 10^3/ul MPV 8.2 (7.4-10.4) um3 Neut % (Auto) 62.5 (38-83) % Lymph % (Auto) 25.0 (25-47) % [place] % (Auto) 10.2 H (0-7) % Eos % (Auto) 0.5 (0-6) % Baso % (Auto) 1.8 (0-2) % Absolute Neuts (auto) 3.4 (1.5-7.7) 10^3/ul Absolute Lymphs (auto) 1.4 (1.0-4.8) 10^3/ul Absolute Monos (auto) 0.6 (0-0.8) 10^3/ul Absolute Eos (auto) 0 (0-0.6) 10^3/ul Absolute Basos (auto) 0.1 (0-0.2) 10^3/ul Absolute Nucleated RBC 0 10^3/ul Nucleated RBC % 0 Sodium 136 (135-145) mmol/L Potassium 4.5 (3.5-5.0) mmol/L Chloride 95 L (101-111) mmol/L Carbon Dioxide 21 L (22-32) mmol/L Anion Gap 20 H (2-11) mmol/L BUN 6 (6-24) mg/dL Creatinine 0.56 (0.51-0.95) mg/dL Est GFR ( Amer) 152.8 (>60) Est GFR (Non-Af Amer) 126.3 (>60) BUN/Creatinine Ratio 10.7 (8-20) Glucose 81 (70-100) mg/dL Calcium 9.6 (8.6-10.3) mg/dL Total Bilirubin 1.50 H (0.2-1.0) mg/dL GGT Pending AST 115 H (13-39) U/L ALT 67 H (7-52) U/L Alkaline Phosphatase 65 (34-104) U/L Total Protein 7.1 (6.4-8.9) g/dL Albumin 4.5 (3.2-5.2) g/dL Globulin 2.6 (2-4) g/dL Albumin/Globulin Ratio 1.7 (1-3) Amylase 117 H (29-103) U/L Lipase Pending Beta HCG, Quant < 0.60 mIU/mL Serum Alcohol Pending Assess/Plan/Problems-Billing Assessment: - Patient Problems (1) Pancreatitis Current Visit: No Status: Acute Code(s): K85.90 - ACUTE PANCREATITIS WITHOUT NECROSIS OR INFECTION, UNSP SNOMED Code(s): 32808886 Comment: - Probably alcohol related. - MRCP negative for CBD stone 12/18/17. Lipase and LFT's improved on 02/21. Advance to low fat diet, stop IV fluids. Oral oxycodone PRN ordered. MOM PRN. (2) Alcohol abuse Current Visit: No Status: Acute Code(s): F10.10 - ALCOHOL ABUSE, UNCOMPLICATED SNOMED Code(s): 27705407 Comment: Stop chlordiazepoxide after AM dose , could consider a few doses to take hs at home. Daily thiamine PO. SW consult requested. (3) Alcoholic liver disease Current Visit: Yes Status: Acute Code(s): K70.9 - ALCOHOLIC LIVER DISEASE, UNSPECIFIED SNOMED Code(s): 83578135 Comment: Improved as of 02/21.
[2018-02-21] MEDS: oxyCODONE TAB* 5 MG TAB PO PRN ×2 (10:36→16:41)
[2018-02-21] MEDS: chlordiazePOXIDE CAP* 25 MG PO PRN (13:39)
[2018-02-21] MEDS: PROCHLORPERAZINE INJ 5 MG/ML 2 ML VIAL IV PRN (20:16)
[2018-02-21] MEDS ORDERED: Simethicone LIQ* 40 MG/0.6 ML UD ORAL SYRINGE PO PRN (20:33)
[2018-02-22] MEDS: oxyCODONE TAB* 5 MG TAB PO PRN (01:22)
[2018-02-22] MEDS: Thiamine TAB* 100 MG TAB PO SCH (08:38)
[2018-02-22] MEDS: chlordiazePOXIDE CAP* 25 MG PO SCH (08:38)
[2018-02-22 13:08] VITALS: BP 125/75
--- NOTE | 2018-02-22 15:55 | DS ---
DISCHARGE SUMMARY: DATE OF ADMISSION: 02/19/18. DATE OF DISCHARGE: 02/22/18. PRIMARY CARE PROVIDER: Dr. Gutiérrez. PRINCIPAL DIAGNOSIS: Acute pancreatitis secondary to alcohol abuse. SECONDARY DIAGNOSIS: Alcohol abuse. DISCHARGE MEDICATIONS: Chlordiazepoxide 25 mg p.o. q. 6 hours p.r.n. withdrawal symptoms, dispensed 12 tablets. HOSPITAL COURSE: Ms. Boateng is a 32-year-old female, who reports drinking three- quarters of a duff dle of vodka daily. She has been doing this since her last discharge from [facility] [place], which was in December of his year. Approximately 1 to 2 days prior to admission she developed abdominal pain, nausea, and vom iting, which progressed. She describes the pain as being across her lower chest and upper abdomen, ve ry similar to her last episode of acute pancreatitis in December 2017. On admission, the patient was foun d to have a lipase of 2776. By 02/21/18, this trended down to 296. Additionally, the patient had jose vated LFTs with an AST peaking at 214 and ALT peaking at 88. These have been trending down. Additio radha, her bilirubin has trended down. The elevated LFTs are likely secondary to alcoholic hepatitis . The patient at this point feels that she is pretty much through the withdrawal symptoms. She does request having prescription for the chlordiazepoxide at home to use over the next couple days, if sh e feels shaky or any other symptoms of withdrawal. Her plans are to establish with [facility] and to try t o maintain sobriety. In terms of pancreatitis, the patient was treated initially with just clear liquid diet, and pain con trol. Ultimately, her diet has been advanced to low fat, which she has been tolerating over the last several meals. At this point, the patient has minimal pain on exam and requests to be discharged ho ne. On the day of discharge the patient is awake, alert, and oriented sitting up in bed in no acute distr ess. Her vital signs are stable. She is not tachycardiac. Her blood pressure is within normal rang e. Cardiac exam reveals a normal S1, S2 with a regular rate and rhythm. She has no lower extremity edema. Her lungs are clear bilaterally. Her abdomen is soft, nontender, nondistended. At this time, the patient is felt to be stable for discharge home. FOLLOWUP CONCERNS: The patient is being discharged to home today, 02/22/18. ACTIVITY LEVEL: As tolerated. DIET: Regular, as tolerated. CONDITION ON DISCHARGE: Stable. FOLLOWUP: The patient has been asked to have a CMP and lipase level drawn on 02/26/18 with the resu lts to her primary care provider. Additionally, the patient has been recommended to follow up with h er primary care provider in the next 4 to 7 days. TIME SPENT: Thirty five minutes was spent discharging this patient of which greater than half was sp ent [id number] with the patient and her family reviewing the discharge plan. [id number]/[facility] #: [id number]
== END 2018-02-22 13:45 | disposition home or self-care (01) | DRG 282 ==
LOC: ED 13:33 → MED 16:41
PROVIDERS: ADMIT Internal Medicine; ATTEND Hospitalist
DX: K85.20 Alcohol induced acute pancreatitis without necrosis or infection (principal); F10.239 Alcohol dependence with withdrawal, unspecified; Y90.4 Blood alcohol level of 80-99 mg/100 ml; K70.10 Alcoholic hepatitis without ascites; Z82.49 Family history of ischemic heart disease and other diseases of the circulatory system; Z87.891 Personal history of nicotine dependence; Z98.84 Bariatric surgery status
CPT/HCPCS: 36415; 74177; 80053; 80320; 81003; 82150; 82977; 83615; 83690; 84478; 84702; 85025; 85610; 93005; 99284; A9270-GY; G0480; J0780; J1170; J2060; J2270; J2405; Q9967

== ENCOUNTER 2018-08-30 09:25 | Emergency (ER) | payer BC ==
[2018-08-30 09:40] VITALS: BP 128/80
--- NOTE | 2018-08-30 10:52 | UC ---
Respiratory Complaint HPI - HPI Summary HPI Summary: sinus congestion, heaviness over the sinuses for 2 weeks; cough; smoker. ear discomfort, cough, short of breath. - History of Current Complaint Chief Complaint: UCRespiratory Stated Complaint: COUGH RESP ISSUE Time Seen by Provider: 08/30/18 10:45 Hx Last Menstrual Period: 08/25/18 Pain Intensity: 0 - Allergies/Home Medications Allergies/Adverse Reactions: Allergies Allergy/AdvReac Type Severity Reaction Status Date / Time No Known Allergies Allergy Verified 08/30/18 09:41 PMH/Surg Hx/FS Hx/Imm Hx - Additional Past Medical History Additional PMH: hx of gastric bypass; pancreatitis. Previously Healthy: Yes GI/ History: Other - gastric bypass; pancreatitis - Surgical History Surgical History: Yes Surgery Procedure, Year, and Place: 11/2004 D&C- [facility]. 06/2013 REMOVAL OF WISDOM TEETH- [facility]. Gastric bypass - 04/2015. Hernia repair March 2016. galbladder removed. 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 Alcohol Use: None Alcohol Amount: ~45 oz vodka daily Substance Use Type: None Substance Use Comment - Amount & Last Used: x 1 week Smoking Status (MU): Heavy Every Day Tobacco Smoker Type: Cigarettes Amount Used/How Often: 1 PPD FOR 6 YRS Length of Time of Smoking/Using Tobacco: 6 YRS Have You Smoked in the Last Year: Yes - MARIJUANA ONLY When Did the Patient Quit Smoking/Using Tobacco: 2008 - Immunization History Most Recent Influenza Vaccination: 2015 Most Recent Tetanus Shot: 2010 Most Recent Pneumonia Vaccination: never had Review of Systems All Other Systems Reviewed And Are Negative: Yes Constitutional: Positive: Fever Skin: Positive: Negative Eyes: Positive: Negative ENT: Positive: Sinus Congestion, Sinus Pain/Tenderness Respiratory: Positive: Shortness Of Breath, Cough Cardiovascular: Positive: Negative Gastrointestinal: Positive: Negative Genitourinary: Positive: Negative Motor: Positive: Negative Neurovascular: Positive: Negative Musculoskeletal: Positive: Negative Neurological: Positive: Negative Psychological: Positive: Negative Is Patient Immunocompromised?: No Physical Exam Triage Information Reviewed: Yes Appearance: Pain Distress - sinus discomfort; cough Vital Signs: Initial Vital Signs Temp 97.8 F 08/30/18 09:37 Pulse 110 08/30/18 09:37 Resp 20 08/30/18 09:37 BP 128/80 08/30/18 09:37 Pulse Ox 98 08/30/18 09:37 Vital Signs Reviewed: Yes Eye Exam: Normal ENT Exam: Normal ENT: Positive: Sinus tenderness - maxillary Dental Exam: Normal Neck exam: Normal Neck: Positive: 1 Respiratory Exam: Normal Respiratory: Positive: Chest non-tender, Lungs clear, Normal breath sounds Cardiovascular Exam: Normal Cardiovascular: Positive: RRR, No Murmur, Pulses Normal Abdominal Exam: Normal Abdomen Description: Positive: Nontender, No Organomegaly, Soft Musculoskeletal Exam: Normal Neurological Exam: Normal Psychological Exam: Normal Skin Exam: Normal UC Diagnostic Evaluation - Laboratory O2 Sat by Pulse Oximetry: 98 Respiratory Course/Dx - Course Course Of Treatment: 32 you with sinus pressure, green nasal discharge, cough. Smoker. Patient's condition is consistent with sinusitis and bronchitis. I will give her a Z donovan, and she will follow up as needed. My diagnosis is sinusitis and bronchitis in a smoker. - Differential Dx/Diagnosis Differential Diagnosis/HQI/PQRI: Asthma, Bronchitis, Laryngitis, Lower Resp Infection, Sinusitis Provider Diagnosis: Sinusitis, Bronchitis, Bronchospasm Discharge - Sign-Out/Discharge Documenting (check all that apply): Patient Departure All imaging exams completed and their final reports reviewed: No Studies - Discharge Plan Condition: Stable Disposition: HOME Prescriptions: Albuterol HFA INHALER* [Ventolin HFA Inhaler*] 1 - 2 puff INH Q4H #1 mdi MDD 8 puffs Azithromycin TAB* [Zithromax TAB (Z-DONOVAN) 250 mg #6 tabs] 2 tab PO .TODAY, THEN 1 DAILY #1 donovan Patient Education Materials: Sinusitis (ED), Acute Bronchitis (ED) Referrals: Ifeoma Gutiérrez MD [Primary Care Provider] - Additional Instructions: WE DISCUSSED: YOU HAVE SINUSITIS AND BRONCHITIS. I have given you a Z donovan and albuterol inhaler for bronchospasm, that is, your air is taking time to get out of your lungs. The albuterol will also help with the cough. Use 2 puffs 4 times a day for the next two days. Go to ED for any new temperature or shortness of breath. Lots warm fluids, hot showers; try not to smoke until this gets better. - Billing Disposition and Condition Condition: STABLE Disposition: Home
== END 2018-08-30 11:01 | disposition home or self-care (01) ==
LOC: UCEAST 09:25
DX: J32.9 Chronic sinusitis, unspecified (principal); J20.9 Acute bronchitis, unspecified; F17.210 Nicotine dependence, cigarettes, uncomplicated
CPT/HCPCS: 99212; G0463

== ENCOUNTER 2018-10-05 06:44 | Inpatient (IN) | payer BC ==
[2018-10-05] MEDS ORDERED: Ondansetron INJ* 2 MG/ML VIAL IV ONE (07:36)
[2018-10-05] MEDS ORDERED: NS 0.9% 1000 ML** 1,000 ML IV ONE ×3 (07:36→11:47)
[2018-10-05] MEDS ORDERED: Morphine VIAL* 4 MG/ML VIAL (1 ml vial) IV ONE ×2 (07:36→09:19)
[2018-10-05 07:41] LABS: ABS Basophils 0 10^3/ul (0-0.2); ABS Eosinophils 0.1 10^3/ul (0-0.6); ABS Lymphocytes 0.9 10^3/ul (1.0-4.8); ABS Monocytes 0.6 10^3/ul (0-0.8); ABS Neutrophils 3.8 10^3/ul (1.5-7.7); ABS Nucleated RBC 0 10^3/ul; Eosinophil % 1.2 %; Hematocrit 44 % (35-47); Hemoglobin 14.9 g/dl (12.0-16.0); Lymphocyte % 16.1 %; Mean Corpuscular HGB Conc 34 g/dl (31-36); Mean Corpuscular Hemoglobin 33 pg (27-31); Mean Corpuscular Volume 99 fL (80-97); Mean Platelet Volume 8.2 fL (7.4-10.4); Nucleated Red Blood Cells % 0.1; Platelet Count 178 10^3/ul (150-450); Red Blood Count 4.47 10^6/ul (4.00-5.40); Red Cell Distribution Width 14 % (10.5-15); White Blood Count 5.4 10^3/ul (3.5-10.8)
[2018-10-05 07:52] LABS: ALT 115 U/L (7-52); AST 126 U/L (13-39); Albumin 4.3 g/dL (3.2-5.2); Albumin/Globulin Ratio 1.5 (1-3); Alkaline Phosphatase 98 U/L (34-104); Amylase 163 U/L (29-103); Anion Gap 11 mmol/L (2-11); BUN/Creatinine Ratio 12.2 (8-20); Blood Urea Nitrogen 9 mg/dL (6-24); C Reactive Protein 4.83 mg/L (<8.01); CO2 Carbon Dioxide 26 mmol/L (22-32); Calcium 9.7 mg/dL (8.6-10.3); Chloride 98 mmol/L (101-111); EGFR African American 110.8 (>60); EGFR Non-African American 91.5 (>60); Globulin 2.9 g/dL (2-4); Glucose 111 mg/dL (70-100); Potassium 4.8 mmol/L (3.5-5.0); Sodium 135 mmol/L (135-145); Total Protein 7.2 g/dL (6.4-8.9)
[2018-10-05] MEDS ORDERED: fentaNYL* 50 MCG/ML 2 ML VIAL (100 MCG VIAL) IV SLOW PU ONE ×2 (08:18→11:39)
[2018-10-05] MEDS ORDERED: Iohexol 300* (CONTRAST) 10 ML SDV IV ONE (08:48)
[2018-10-05 08:53] LABS: Alcohol < 10 mg/dL (<10)
--- NOTE | 2018-10-05 09:12 | ED ---
Abdominal Pain/Female - HPI Summary HPI Summary: Patient is a 32-year-old female with history of alcoholism and pancreatitis presenting to the ED with midsternal abdominal pain wrapping around to the back bilaterally 2 days. She states since February (her last pancreatitis episode), she is only had 4 different dates where she endorses drinking ETOH. She states she drank 2 glasses of wine 2 days ago and has had this abdominal pain since that time. She also endorses nausea and vomiting. She is needs to be admitted for this twice in the past year for intractable nausea, vomiting and midabdominal pain not well controlled with by mouth medications. She denies any other symptoms. She denies fevers, sweats, chills. She denies any urinary symptoms. - History of Current Complaint Chief Complaint: EDAbdPain Stated Complaint: ABD PAIN Time Seen by Provider: 10/05/18 07:08 Hx Obtained From: Patient Hx Last Menstrual Period: 08/25/18 ?: No Onset/Duration: Sudden Onset Timing: Constant Severity Initially: Severe Severity Currently: Severe Pain Intensity: 8 Pain Scale Used: 0-10 Numeric Location: Epigastric Radiates: No Character: Burning, Cramping Aggravating Factor(s): Nothing Alleviating Factor(s): Nothing Associated Signs and Symptoms: Positive: Negative, Nausea, Vomiting. Negative: Urinary Symptoms, Decreased Appetite - Risk Factors Ectopic Risk Factor: Negative Ovarian Torsion Risk Factor: Negative Allergies/Adverse Reactions: Allergies Allergy/AdvReac Type Severity Reaction Status Date / Time No Known Allergies Allergy Verified 08/30/18 09:41 PMH/Surg Hx/FS Hx/Imm Hx Previously Healthy: Yes Endocrine/Hematology History: Reports: Hx Anemia - POST , OK NOW Denies: Hx Diabetes, Hx Thyroid Disease Cardiovascular History: Denies: Hx Hypertension, Hx Pacemaker/ICD Respiratory History: Denies: Hx Asthma, Hx Chronic Obstructive Pulmonary Disease (COPD) GI History: Reports: Hx Gall Bladder Disease - Gall bladder removed, Hx Gastroesophageal Reflux Disease, Other GI Disorders - Pancreatitis, Alcoholic Liver Disease Denies: Hx Ulcer History: Reports: Hx Kidney Stones - LEFT RENAL CALCULI-Lithotripsy Denies: Hx Renal Disease Musculoskeletal History: Reports: Hx Tendonitis - IN BOTH HANDS DURING , OK NOW Denies: Hx Arthritis, Hx Osteoporosis Sensory History: Reports: Hx Contacts or Glasses - not /c patient Denies: Hx Hearing Aid Opthamlomology History: Reports: Hx Contacts or Glasses - not /c patient Neurological History: Denies: Hx Headaches Psychiatric History: Reports: Hx Anxiety, Hx Depression Denies: Hx Panic Disorder - Surgical History Surgery Procedure, Year, and Place: 11/2004 D&C- [facility]. 06/2013 REMOVAL OF WISDOM TEETH- [facility]. Gastric bypass - 04/2015. Hernia repair March 2016. galbladder removed. kidney stones Hx Anesthesia Reactions: No - Immunization History Hx Pertussis Vaccination: No Immunizations Up to Date: Yes Infectious Disease History: No Infectious Disease History: Denies: Hx Clostridium Difficile, Hx Hepatitis, Hx Human Immunodeficiency Virus (HIV), Hx of Known/Suspected MRSA, Hx Shingles, Hx Tuberculosis, Hx Known/ Suspected VRE, Hx Known/Suspected VRSA, History Other Infectious Disease, Traveled Outside the [place] in Last 30 Days - Family History Known Family History: Positive: Hypertension, Other - father with diverticular disase Negative: Diabetes - Social History Occupation: Unemployed Lives: With Family Alcohol Use: None Alcohol Amount: ~45 oz vodka daily Hx Substance Use: No Substance Use Type: Reports: None Substance Use Comment - Amount & Last Used: x 1 week Hx Tobacco Use: Yes Smoking Status (MU): Heavy Every Day Tobacco Smoker Type: Cigarettes Amount Used/How Often: 1 PPD FOR 6 YRS Length of Time of Smoking/Using Tobacco: 6 YRS Have You Smoked in the Last Year: Yes - MARIJUANA ONLY Review of Systems Constitutional: Negative Negative: Fever, Chills, Fatigue, Skin Diaphoresis Negative: Palpitations, Chest Pain Negative: Shortness Of Breath, Cough Positive: Abdominal Pain, Vomiting, Nausea. Negative: Diarrhea Genitourinary: Negative Positive: no symptoms reported, see HPI Negative: Arthralgia, Myalgia Skin: Negative Neurological: Negative All Other Systems Reviewed And Are Negative: Yes Physical Exam Triage Information Reviewed: Yes Vital Signs On Initial Exam: Initial Vitals Temp Pulse Resp BP Pulse Ox 97.9 F 102 18 136/108 95 10/05/18 06:49 10/05/18 06:49 10/05/18 06:49 10/05/18 06:49 10/05/18 06:49 Vital Signs Reviewed: Yes Appearance: Positive: Well-Appearing, Well-Nourished Skin: Positive: Warm, Skin Color Reflects Adequate Perfusion, Diaphoretic Head/Face: Positive: Normal Head/Face Inspection Eyes: Positive: ANN, Conjunctiva Clear Neck: Positive: Supple, No Lymphadenopathy Respiratory/Lung Sounds: Positive: Clear to Auscultation, Breath Sounds Present Cardiovascular: Positive: RRR, Pulses are Symmetrical in both Upper and Lower Extremities Abdomen Description: Positive: Other: - tenderness to the midepigastric region Musculoskeletal: Positive: Normal Neurological: Positive: Sensory/Motor Intact, Alert, Oriented to Person Place, Time, Speech Normal Psychiatric: Positive: Affect/Mood Appropriate Diagnostics - Vital Signs Vital Signs Temp Pulse Resp BP Pulse Ox 10/05/18 09:00 12 10/05/18 08:32 18 135/89 10/05/18 08:30 15 129/86 10/05/18 08:28 22 10/05/18 08:03 20 10/05/18 08:00 18 10/05/18 07:32 112 25 127/104 99 10/05/18 07:03 10 10/05/18 07:02 134/93 10/05/18 06:49 97.9 F 102 18 136/108 95 - Laboratory Lab Results: Lab Results 10/05/18 10/05/18 Range/Units 07:23 07:23 WBC 5.4 (3.5-10.8) 10^3/ul RBC 4.47 (4.00-5.40) 10^6/ul Hgb 14.9 (12.0-16.0) g/dl Hct 44 (35-47) % MCV 99 H (80-97) fL MCH 33 H (27-31) pg MCHC 34 (31-36) g/dl RDW 14 (10.5-15) % Plt Count 178 (150-450) 10^3/ul MPV 8.2 (7.4-10.4) fL Neut % (Auto) 70.1 % Lymph % (Auto) 16.1 % [place] % (Auto) 11.8 % Eos % (Auto) 1.2 % Baso % (Auto) 0.8 % Absolute Neuts (auto) 3.8 (1.5-7.7) 10^3/ul Absolute Lymphs (auto) 0.9 L (1.0-4.8) 10^3/ul Absolute Monos (auto) 0.6 (0-0.8) 10^3/ul Absolute Eos (auto) 0.1 (0-0.6) 10^3/ul Absolute Basos (auto) 0 (0-0.2) 10^3/ul Absolute Nucleated RBC 0 10^3/ul Nucleated RBC % 0.1 Sodium 135 (135-145) mmol/L Potassium 4.8 (3.5-5.0) mmol/L Chloride 98 L (101-111) mmol/L Carbon Dioxide 26 (22-32) mmol/L Anion Gap 11 (2-11) mmol/L BUN 9 (6-24) mg/dL Creatinine 0.74 (0.51-0.95) mg/dL Est GFR ( Amer) 110.8 (>60) Est GFR (Non-Af Amer) 91.5 (>60) BUN/Creatinine Ratio 12.2 (8-20) Glucose 111 H (70-100) mg/dL Calcium 9.7 (8.6-10.3) mg/dL Total Bilirubin 1.90 H (0.2-1.0) mg/dL AST 126 H (13-39) U/L ALT 115 H (7-52) U/L Alkaline Phosphatase 98 (34-104) U/L C-Reactive Protein 4.83 (<8.01) mg/L Total Protein 7.2 (6.4-8.9) g/dL Albumin 4.3 (3.2-5.2) g/dL Globulin 2.9 (2-4) g/dL Albumin/Globulin Ratio 1.5 (1-3) Amylase 163 H (29-103) U/L Lipase 2393 H (11.0-82.0) U/L Serum Alcohol < 10 (<10) mg/dL Result Diagrams: 10/05/18 07:23 10/05/18 07:23 Lab Statement: Any lab studies that have been ordered have been reviewed, and results considered in the medical decision making process. Abdominal Pain Fem Course/Dx - Course Course Of Treatment: During the course of treatment, the patient's evaluated for abdominal pain radiating to and around to the back. She denies any fevers, sweats, chills. Vital signs are stable on arrival, however patient appears very anxious and diaphoretic. She is complaining of a 9/10 mid abdominal pain as well as nausea and vomiting. She has not had any vomiting since arrival. She is given Zofran, morphine x 2 and fentanyl. She continues to c/o pain despite pain control given. Labs obtained and amylase 163 ad lipase 2393. Alcohol negative. CT abdomen and pelvis with IV contrast obtained which shows constistent with acute pancreatitis. Dicsussed case with Dr Hebert who agrees to admit for pain control. - Diagnoses Differential Diagnosis: Positive: Constipation, Pancreatitis, Urinary Tract Infection Provider Diagnoses: Pancreatitis - Provider Notifications Discussed Care Of Patient With: Terra Hebert Discharge - Sign-Out/Discharge Documenting (check all that apply): Patient Departure Patient Received Moderate/Deep Sedation with Procedure: No - Discharge Plan Condition: Stable Disposition: ADMITTED TO [facility] Referrals: Ifeoma Gutiérrez MD [Primary Care Provider] - - Billing Disposition and Condition Condition: STABLE Disposition: Admitted to [facility]
[2018-10-05] MEDS ORDERED: Famotidine IV* 10 MG/ML 2 ML (20 mg) IV SLOW PU ONE (09:26)
[2018-10-05] MEDS ORDERED: Al Hydrox/Mg Hydrox/Simet LIQ* 30 ML UDC PO ONE (09:26)
[2018-10-05] MEDS ORDERED: Metoclopramide IV* 5 MG/ML 2 ML VIAL IV ONE (11:39)
[2018-10-05] MEDS ORDERED: Al Hydrox/Mg Hydrox/Simet LIQ* 30 ML UDC PO PRN (12:14)
[2018-10-05] MEDS ORDERED: Ondansetron INJ* 2 MG/ML VIAL IV PRN (12:14)
[2018-10-05] MEDS: NS 0.9% 1000 ML** 1,000 ML IV SCH ×3 (13:30→19:31)
[2018-10-05] MEDS ORDERED: HYDROmorphone INJ* 0.5 MG/0.5 ML SYRINGE IV SLOW PU PRN (13:30)
[2018-10-05] MEDS: HYDROmorphone INJ1* 1 MG/ML SYRINGE IV SLOW PU PRN ×3 (14:02→22:19)
[2018-10-05] MEDS ORDERED: Metoclopramide IV* 5 MG/ML 2 ML VIAL IV PRN (18:46)
--- NOTE | 2018-10-05 20:46 | HP ---
CC: Dr. Gutiérrez * HISTORY AND PHYSICAL: DATE OF ADMISSION: 10/05/18 PROVIDER: Anh Lopez NP. PRIMARY CARE PROVIDER: Dr. Gutiérrez. ATTENDING PROVIDER: Dr. Hebert * (DICTATED BY ANH LOPEZ NP) CHIEF COMPLAINT: Abdominal pain. HISTORY OF PRESENT ILLNESS: Ms. Boateng is a 32-year-old female with a past medical history significant for pancreatitis who presented to the emergency room today with abdominal pain that started yesterday morning. The patient reports she has vomited x6 since yesterday. She denies any blood in the vomit. She complains of sharp upper abdominal pain that radiates to her back. It is a burning pain. It is constant. Nothing seems to improve the pain or she does not report that the pain is worse with vomiting and lying flat. The patient reports that she drank alcohol on Saturday. She reports she drank half a bottle of wine and then developed abdominal pain Saturday morning. The patient reports that she has a history of pancreatitis that has been alcohol-induced in the past. Due to her increased abdominal pain, nausea and vomiting, she presented to the emergency room for further evaluation. While in the emergency room, she was given IV fluids. She had a CT of the abdomen and pelvis, which showed findings consistent with acute pancreatitis. Due to these findings, we were asked to see and evaluate her for admission. PAST MEDICAL HISTORY: Significant for pancreatitis. PAST SURGICAL HISTORY: 1. Gastric bypass. 2. Hernia repair. 3. History of kidney stone removal. 4. Cholecystectomy. HOME MEDICATIONS: None. ALLERGIES: No known drug allergies. FAMILY HISTORY: Mother with a history of UT at 48, grandmother with stroke in her 60s, grandfather with an UT in his 40s. No reported diabetes or cancer within the family. SOCIAL HISTORY: The patient smokes 1 pack per day. Last drink was on Saturday, she reports half a bottle of wine. Denies any illicit drug use. She is . Surrogate decision maker in the event she is unable to make her own decisions is her . She is a full code. REVIEW OF SYSTEMS: There has been no fever, no unintended weight loss. No chest pain or erythema. Denies any cough, hemoptysis or shortness of breath. She does report nausea and vomiting, denies any diarrhea. She does report upper abdominal pain that radiates to her back. She denies any gross hematuria , dysuria, focal weakness, sensory loss, visual complaints, dysphagia, arthralgias, myalgias, rashes, lesions, open sores or anxiety. PHYSICAL EXAMINATION GENERAL: At this time, Ms. Boateng is a 32-year-old female. She is resting on the stretcher in the emergency room. She is well developed, obese. She does not appear to be in any acute distress. VITAL SIGNS: Blood pressure 136/99, heart rate is 89, respirations are 14, O2 saturation 99%, temperature was 97.9. HEENT: Head is atraumatic, normocephalic. Eyes: EOMs are intact. Sclerae anicteric and not pale. Oral mucosa appears to be moist. NECK: Supple. LUNGS: Clear to auscultation bilaterally. No wheezes, rales or rhonchi. CARDIAC: S1, S2. Regular rate and rhythm. No murmurs, rubs or gallops. ABDOMEN: Bowel sounds are present x4. Abdomen is obese, soft. She does have a tenderness to the upper abdomen. Mild tenderness with palpation to the back. MUSCULOSKELETAL: There is no clubbing or cyanosis. She is able to move all 4 extremities with 5/5 strength. SKIN: Warm and dry and intact. There are no rashes. NEUROLOGIC: She is awake, alert, and oriented x3. Speech is clear. Thought process is intact. There are no gross focal deficits PSYCHIATRIC: The patient is alert and oriented x3. She appears appropriate. LABORATORY DATA AND DIAGNOSTIC STUDIES: WBCs are 5.4, RBCs 4.47, hemoglobin 14.9, hematocrit is 44, platelet count is 178. Sodium 135, potassium 4.8, chloride 98, carbon dioxide was 26, anion gap was 11, BUN was 9, glucose was 111 , calcium 9.7. T-bili was 1.90, ASTs were 126, ALTs were 115, amylase was 163 and lipase was 2393. Serum alcohol was less than 10. She had a CT of the abdomen and pelvis. Radiologist's impression: Findings consistent with: 1. Acute pancreatitis. 2. Hepatic steatosis. In addition, there is a more focal area with decreased sensitivity in the anterior aspect of the left pedicle most consistent with more focal fatty infiltration, although nonspecific. 3. Status post cholecystectomy and gastric bypass surgery. She underwent electrocardiogram, which showed sinus rhythm at a rate of 95. ASSESSMENT AND PLAN: Ms. Boateng is a 32-year-old female who presented to the emergency room with complaints of abdominal pain, nausea and vomiting and found to have acute pancreatitis after alcohol use. 1. Acute pancreatitis. At this point, it appears to be related to alcohol use as the patient reports she drank half a bottle of wine on Saturday and pain started Saturday morning. I will continue the patient on normal saline at 125 cc an hour. She will have Dilaudid 0.5 mg IV every 4 hours as needed for pain. I will continue with Zofran 4 mg IV q.6 hours as needed for nausea. I will place her on a clear liquid diet. 2. Elevated bili, ASTs and ALTs. I suspect this is related to her acute pancreatitis. We will repeat her lab work in the a.m. 3. FEN. She can have clear liquid diet. 4. DVT prophylaxis. According to adult thrombosis prophylaxis risk factor assessment guide, the patient's total risk factor is 1 making her low risk. I will use ambulation for DVT prophylaxis. 5. Code status. She is a full code. TIME SPENT: Time spent on this admission was 60 minutes; greater than half that time was spent at the bedside reviewing events leading thus far to her hospitalization, performing my physical exam; the other half of the time was spent implementing my plan of care. I have discussed this with my attending, Dr. Terra Hebert. She is in agreement with my plan. ANH LOPEZ, LUIS [id number]/CPS #: [id number] CHERRI
[2018-10-06] MEDS: NS 0.9% 1000 ML** 1,000 ML IV SCH ×4 (01:14→15:46)
[2018-10-06] MEDS: HYDROmorphone INJ1* 1 MG/ML SYRINGE IV SLOW PU PRN ×6 (02:31→23:50)
[2018-10-06 05:03] LABS: ABS Basophils 0 10^3/ul (0-0.2); ABS Eosinophils 0.1 10^3/ul (0-0.6); ABS Monocytes 0.8 10^3/ul (0-0.8); ABS Neutrophils 3.8 10^3/ul (1.5-7.7); ABS Nucleated RBC 0 10^3/ul; Eosinophil % 2.6 %; Hematocrit 39 % (35-47); Hemoglobin 13.1 g/dl (12.0-16.0); Mean Corpuscular HGB Conc 33 g/dl (31-36); Mean Corpuscular Hemoglobin 33 pg (27-31); Mean Corpuscular Volume 98 fL (80-97); Mean Platelet Volume 8.2 fL (7.4-10.4); Nucleated Red Blood Cells % 0; Platelet Count 144 10^3/ul (150-450); Red Blood Count 3.99 10^6/ul (4.00-5.40); Red Cell Distribution Width 14 % (10.5-15); White Blood Count 5.8 10^3/ul (3.5-10.8)
[2018-10-06 05:17] LABS: BUN/Creatinine Ratio 5.5 (8-20); Calcium 8.2 mg/dL (8.6-10.3); EGFR Non-African American 128.9 (>60); Potassium 3.5 mmol/L (3.5-5.0)
--- NOTE | 2018-10-06 10:34 | PN ---
Subjective Date of Service: 10/06/18 Interval History: patient reports she feels better today with less pain but continues to have generalized abdominal pain and bloating. She denies any further vomiting but reports nausea. No diarrhea. Denies fever or chills. Ambulated around unit. Objective Active Medications: Al Hydrox/Mg Hydrox/Simethicone (Maalox Plus*) 30 ml PO Q6H PRN PRN Reason: INDIGESTION Hydromorphone HCl (Dilaudid Inj1s*) 0.5 mg IV SLOW PU Q4H PRN PRN Reason: PAIN Last Admin: 10/06/18 06:27 Dose: 0.5 mg Sodium Chloride (Ns 0.9% 1000 Ml) 1,000 mls @ 125 mls/hr IV PER RATE TAISHA Last Admin: 10/06/18 09:24 Dose: 125 mls/hr Metoclopramide HCl (Reglan Iv*) 10 mg IV Q6H PRN PRN Reason: NAUSEA/VOMITING Last Admin: 10/05/18 19:32 Dose: 10 mg Ondansetron HCl (Zofran Inj*) 4 mg IV Q6H PRN PRN Reason: NAUSEA/VOMITING Last Admin: 10/05/18 14:02 Dose: 4 mg Vital Signs - 8 hr 10/06/18 10/06/18 10/06/18 02:31 03:32 04:10 Temperature 98.6 F Pulse Rate 85 Respiratory 18 17 18 Rate Blood Pressure 154/93 (mmHg) O2 Sat by Pulse 98 Oximetry 10/06/18 10/06/18 06:27 07:36 Temperature 97.9 F Pulse Rate 79 Respiratory 18 18 Rate Blood Pressure 137/94 (mmHg) O2 Sat by Pulse 98 Oximetry Oxygen Devices in Use Now: None Appearance: obese female laying in bed A+O x3 in NAD Eyes: No Scleral Icterus, PERRLA Ears/Nose/Mouth/Throat: Mucous Membranes Moist Neck: NL Appearance and Movements; NL JVP Respiratory: Symmetrical Chest Expansion and Respiratory Effort, Clear to Auscultation Cardiovascular: NL Sounds; No Murmurs; No JVD, RRR, No Edema Abdominal: - - mild distention, soft, nonguarding - tender to upper left and upper right quads, Skin: No Rash or Ulcers, No Nodules or Sclerosis Neurological: Alert and Oriented x 3, NL Sensation Lines/Tubes/Other Access: Clean, Dry and Intact Peripheral IV Nutrition: Taking PO's Result Diagrams: 10/06/18 04:49 10/06/18 04:49 Additional Lab and Data: Lab Results 10/05/18 10/05/18 Range/Units 07:23 07:23 WBC 5.4 (3.5-10.8) 10^3/ul RBC 4.47 (4.00-5.40) 10^6/ul Hgb 14.9 (12.0-16.0) g/dl Hct 44 (35-47) % MCV 99 H (80-97) fL MCH 33 H (27-31) pg MCHC 34 (31-36) g/dl RDW 14 (10.5-15) % Plt Count 178 (150-450) 10^3/ul MPV 8.2 (7.4-10.4) fL Neut % (Auto) 70.1 % Lymph % (Auto) 16.1 % [place] % (Auto) 11.8 % Eos % (Auto) 1.2 % Baso % (Auto) 0.8 % Absolute Neuts (auto) 3.8 (1.5-7.7) 10^3/ul Absolute Lymphs (auto) 0.9 L (1.0-4.8) 10^3/ul Absolute Monos (auto) 0.6 (0-0.8) 10^3/ul Absolute Eos (auto) 0.1 (0-0.6) 10^3/ul Absolute Basos (auto) 0 (0-0.2) 10^3/ul Absolute Nucleated RBC 0 10^3/ul Nucleated RBC % 0.1 Sodium 135 (135-145) mmol/L Potassium 4.8 (3.5-5.0) mmol/L Chloride 98 L (101-111) mmol/L Carbon Dioxide 26 (22-32) mmol/L Anion Gap 11 (2-11) mmol/L BUN 9 (6-24) mg/dL Creatinine 0.74 (0.51-0.95) mg/dL Est GFR ( Amer) 110.8 (>60) Est GFR (Non-Af Amer) 91.5 (>60) BUN/Creatinine Ratio 12.2 (8-20) Glucose 111 H (70-100) mg/dL Calcium 9.7 (8.6-10.3) mg/dL Total Bilirubin 1.90 H (0.2-1.0) mg/dL AST 126 H (13-39) U/L ALT 115 H (7-52) U/L Alkaline Phosphatase 98 (34-104) U/L C-Reactive Protein 4.83 (<8.01) mg/L Total Protein 7.2 (6.4-8.9) g/dL Albumin 4.3 (3.2-5.2) g/dL Globulin 2.9 (2-4) g/dL Albumin/Globulin Ratio 1.5 (1-3) Amylase 163 H (29-103) U/L Lipase 2393 H (11.0-82.0) U/L Serum Alcohol < 10 (<10) mg/dL Assess/Plan/Problems-Billing Assessment: 32 yo female with PMH gastric bypass, hernis repair, s/p suzanne, alcohol abuse with alcohol induced pancreatitis who presented with c/o abdominal pain and vomiting who was found to have CT findings consistent with acute pancreatitis - Patient Problems (1) Acute pancreatitis Comment: - CT showing finding consistent with acute pancreatitis "enlarged wth surrounding fluid. No necrosis". - Stable, improving slowly, appears nontoxic - Lipase/amylase elevated - lipase trending down - Elevated LFTs and Bili - suspect secondary to pancreatitis but has been elevated in the past - 2nd to fatty liver? will continue to trend - add on to am labs - Clears only - Pain control prn, zofran prn - Continue NS @ 150 mls/hr - recieved 3 1/2 L so far. - I+Os (2) Full code status Status and Disposition: acute pancreatitis - switch to inpatient for IV fluids and IV pain control
[2018-10-06 11:01] LABS: Albumin 3.5 g/dL (3.2-5.2); Albumin/Globulin Ratio 1.4 (1-3); Globulin 2.5 g/dL (2-4); Indirect Bilirubin 0.9 mg/dL (0.3-1.0); Total Bilirubin 1.3 mg/dL (0.2-1.0)
[2018-10-07] MEDS: HYDROmorphone INJ1* 1 MG/ML SYRINGE IV SLOW PU PRN (05:10)
[2018-10-07 06:29] LABS: ABS Basophils 0 10^3/ul (0-0.2); ABS Eosinophils 0.1 10^3/ul (0-0.6); ABS Lymphocytes 1.1 10^3/ul (1.0-4.8); ABS Monocytes 0.7 10^3/ul (0-0.8); ABS Nucleated RBC 0 10^3/ul; Eosinophil % 2.7 %; Hematocrit 37 % (35-47); Hemoglobin 12.4 g/dl (12.0-16.0); Lymphocyte % 22.9 %; Mean Corpuscular HGB Conc 34 g/dl (31-36); Mean Corpuscular Hemoglobin 33 pg (27-31); Mean Corpuscular Volume 99 fL (80-97); Mean Platelet Volume 8.8 fL (7.4-10.4); Nucleated Red Blood Cells % 0; Platelet Count 130 10^3/ul (150-450); Red Blood Count 3.73 10^6/ul (4.00-5.40); Red Cell Distribution Width 14 % (10.5-15)
[2018-10-07 06:33] LABS: Albumin 3.6 g/dL (3.2-5.2); Albumin/Globulin Ratio 1.4 (1-3); BUN/Creatinine Ratio 7.1 (8-20); Calcium 8.7 mg/dL (8.6-10.3); EGFR African American 212.9 (>60); Globulin 2.5 g/dL (2-4); Potassium 3.3 mmol/L (3.5-5.0); Total Bilirubin 1.1 mg/dL (0.2-1.0); Total Protein 6.1 g/dL (6.4-8.9)
[2018-10-07] MEDS ORDERED: Potassium Chlor TAB* 20 MEQ TAB.ER PO ONE (11:19)
[2018-10-07 13:05] VITALS: BP 155/95
--- NOTE | 2018-10-07 15:16 | PN ---
Subjective Date of Service: 10/07/18 Interval History: Patient reports her abdominal pain is "pretty much gone" and wants to be sent home. Per primary nurse patient just reported to him she was seeing beads falling from the ceiling. When I went to see the patient she was sitting outside the room at the end of the hallway on the couch - I asked her to come back in her room and she said "I cant do that because their are bugs in there, tiny white swarms of bugs". She did come back into the room acting very upset and anxious. She is very upset that I was "accusing her of seeing things". I asked her if she did see the bugs in the room currently and she stated "yes there is a swarm of them right there, they are white and small". There are noted noted bugs on my evaluation. Pt denies any fever, chills. No N/V. Denies CLIFTON. Pt asked about her alcohol intake and she admittedly refuses she drinks on a regular basis stating she only recently had alcohol 3 different times in the last 5 months. Patient denies tremors and states she is upset and wants to go home. Patient wants to leave AMA. She is able to tell me what she would do if she got worse or had a concern for her wellbeing stating she knows she is taking a risk which could lead to severe illness, severe disability, . She is clearly able to state what my concern is and is found to have capacity to make this decision. I discussed privately with her with patients consent and he states he does not believe she is drinking at home and has not had any concern. He did try to get her to stay but also agrees he is comfortable taking her home and was able to state the risks. He was found to be reliable and reasonable. I spoke with Dr. Tineo over the phone, he does not have time to see the patient at this time but upon discussing my assessment he states it sounds like she has capacity and if her is reliable (which he was found to be) she has capacity and can leave AMA. Again, the patient was clearly able to state why I wanted her to stay and the potential risks involved in leaving with out appropriate work up and I do feel she has capacity and can leave AMA. On reassessment when the patient wasnt upset she did not have hand tremors, denies hallucinations even though she still states she saw them and is not making it up. Patient is leaving AMA - she and her signed the AMA form also recommended the pt see her primary for her elevated blood pressures - she refused medication at this time Objective Active Medications: Al Hydrox/Mg Hydrox/Simethicone (Maalox Plus*) 30 ml PO Q6H PRN PRN Reason: INDIGESTION Metoclopramide HCl (Reglan Iv*) 10 mg IV Q6H PRN PRN Reason: NAUSEA/VOMITING Last Admin: 10/05/18 19:32 Dose: 10 mg Ondansetron HCl (Zofran Inj*) 4 mg IV Q6H PRN PRN Reason: NAUSEA/VOMITING Last Admin: 10/05/18 14:02 Dose: 4 mg Vital Signs - 8 hr 10/07/18 10/07/18 10/07/18 07:20 08:00 11:21 Temperature 97.6 F 97.7 F Pulse Rate 78 73 Respiratory 16 16 18 Rate Blood Pressure 142/80 155/95 (mmHg) O2 Sat by Pulse 98 100 Oximetry Oxygen Devices in Use Now: None Appearance: obese female sitting in the side of the bed in NAD, A+O x3 - but is noted to be anxious Eyes: No Scleral Icterus, PERRLA Ears/Nose/Mouth/Throat: Mucous Membranes Moist Neck: NL Appearance and Movements; NL JVP Respiratory: Symmetrical Chest Expansion and Respiratory Effort, Clear to Auscultation Cardiovascular: NL Sounds; No Murmurs; No JVD, RRR, No Edema Abdominal: NL Sounds; No Tenderness; No Distention, - - obese Extremities: No Edema, No Clubbing, Cyanosis Skin: No Rash or Ulcers, No Nodules or Sclerosis Neurological: Alert and Oriented x 3, NL Sensation, NL Gait, NL Muscle Strength and Tone - , - Lines/Tubes/Other Access: Clean, Dry and Intact Peripheral IV Nutrition: Taking PO's Result Diagrams: 10/07/18 06:01 10/07/18 06:01 Additional Lab and Data: Lab Results 10/05/18 10/05/18 Range/Units 07:23 07:23 WBC 5.4 (3.5-10.8) 10^3/ul RBC 4.47 (4.00-5.40) 10^6/ul Hgb 14.9 (12.0-16.0) g/dl Hct 44 (35-47) % MCV 99 H (80-97) fL MCH 33 H (27-31) pg MCHC 34 (31-36) g/dl RDW 14 (10.5-15) % Plt Count 178 (150-450) 10^3/ul MPV 8.2 (7.4-10.4) fL Neut % (Auto) 70.1 % Lymph % (Auto) 16.1 % [place] % (Auto) 11.8 % Eos % (Auto) 1.2 % Baso % (Auto) 0.8 % Absolute Neuts (auto) 3.8 (1.5-7.7) 10^3/ul Absolute Lymphs (auto) 0.9 L (1.0-4.8) 10^3/ul Absolute Monos (auto) 0.6 (0-0.8) 10^3/ul Absolute Eos (auto) 0.1 (0-0.6) 10^3/ul Absolute Basos (auto) 0 (0-0.2) 10^3/ul Absolute Nucleated RBC 0 10^3/ul Nucleated RBC % 0.1 Sodium 135 (135-145) mmol/L Potassium 4.8 (3.5-5.0) mmol/L Chloride 98 L (101-111) mmol/L Carbon Dioxide 26 (22-32) mmol/L Anion Gap 11 (2-11) mmol/L BUN 9 (6-24) mg/dL Creatinine 0.74 (0.51-0.95) mg/dL Est GFR ( Amer) 110.8 (>60) Est GFR (Non-Af Amer) 91.5 (>60) BUN/Creatinine Ratio 12.2 (8-20) Glucose 111 H (70-100) mg/dL Calcium 9.7 (8.6-10.3) mg/dL Total Bilirubin 1.90 H (0.2-1.0) mg/dL AST 126 H (13-39) U/L ALT 115 H (7-52) U/L Alkaline Phosphatase 98 (34-104) U/L C-Reactive Protein 4.83 (<8.01) mg/L Total Protein 7.2 (6.4-8.9) g/dL Albumin 4.3 (3.2-5.2) g/dL Globulin 2.9 (2-4) g/dL Albumin/Globulin Ratio 1.5 (1-3) Amylase 163 H (29-103) U/L Lipase 2393 H (11.0-82.0) U/L Serum Alcohol < 10 (<10) mg/dL Assess/Plan/Problems-Billing Assessment: 32 yo female with PMH gastric bypass, hernis repair, s/p suzanne, alcohol abuse with alcohol induced pancreatitis who presented with c/o abdominal pain and vomiting who was found to have CT findings consistent with acute pancreatitis - Patient Problems (1) Acute pancreatitis Comment: - Clinically improving - abdominal pain resolved - CT showing finding consistent with acute pancreatitis "enlarged wth surrounding fluid. No necrosis". - Stable appears nontoxic - Lipase/amylase elevated - lipase trending down - Elevated LFTs and Bili - treninding down- suspect secondary to pancreatitis but has been elevated in the past - 2nd to fatty liver? will continue to trend - add on to am labs - tolerated advanced diet - No pain medication since this am (2) Hallucination Comment: I do feel that she has capacity and is able to tell me the risks and is leaving AMA. She is acting appropriate other than she is upset. Met with - he tried to convince her to stay - He does not think she is drinking on a regular basis. it is also possible she is hallucinating from opioids. ammonia level normal Recommendation is to stay for further work up (3) Full code status Status and Disposition: acute pancreatitis - left AMA
--- NOTE | 2018-10-07 20:29 | DS ---
CC: Dr. Gutiérrez * DISCHARGE SUMMARY: DATE OF ADMISSION: 10/05/18 DATE OF DISCHARGE: 10/07/18 LEFT AGAINST MEDICAL ADVICE, SIGNED OUT AMA. ATTENDING PHYSICIAN: Dr. Echeverria * (report dictated by Brooklynn Navarrete NP). PRIMARY CARE PROVIDER: Dr. Gutiérrez. ADMITTING DIAGNOSES: 1. Acute pancreatitis, alcohol induced. 2. Transaminitis. 3. Elevated bilirubin. DISCHARGE DIAGNOSES: 1. Acute alcohol-induced pancreatitis. 2. Transaminitis. 3. Fatty liver. 4. Hallucinations. HISTORY OF PRESENT ILLNESS AND HOSPITAL COURSE: Ms. Boateng is a 32-year-old female with a distant history of alcohol-induced acute pancreatitis, who presented to the emergency department on 10/05/18 with complaints of abdominal pain, nausea, vomiting starting that day, found to have acute pancreatitis after alcohol use. Per the patient, she quit drinking for a year or so and reports that she has only drank 3 times in the last year, once being around the holidays and the other time with co-workers and the third time last Saturday the day prior to coming to the hospital she drank half a bottle of wine with her . She reports that she developed abdominal pain early Saturday morning with nausea and vomiting, came to the hospital for further evaluation and was found to have elevated LFTs as well as elevated bilirubin and an elevated lipase and amylase. Her CT scan showed findings consistent with acute pancreatitis as well as hepatic steatosis with a more focal area of decreased density in the anterior aspect of the left hepatic lobe most consistent with a more fatty infiltration, although nonspecific. Status post cholecystectomy and gastric bypass surgery. The patient was admitted to the hospitalist service and was given fluid resuscitation as well as IV Dilaudid and was on clear liquid diet only. Over the course of the next 24 hours, she improved quite quickly and had reduction in pain and cessation of nausea and vomiting. Last evening, her diet was advanced and she tolerated this well and this morning felt that she was ready for discharge home reporting no abdominal pain. She was ambulating around the unit. She was going to be discharged when she had mentioned to the nurse that she saw "beads dropping from the ceiling." I went and discussed this with the patient, who was sitting outside her room and I asked her to enter her room so we could talk about her discharge and so she could be assessed and asked her if she was seeing beads dropping in the room and states "well yes, but also there are bugs in my room." I asked her if she currently saw bugs and she said "yes, I see them in the corner, they are very tiny". She adamantly refuses that she drinks more than she admitted to, as I did have concern that she was possibly withdrawing from alcohol. Initially, she appeared to be shaky in her hands. Her arrived to the unit and I was able to discuss with him privately with the patient's consent if he had concerns that she was drinking more at home than she was admitting to, and he states that he does not think so that she has been not drinking alcohol for quite some time and works a full-time job and he has no inkling that she is drinking alcohol. We did try to convince her to stay; however, the patient was able to clearly state that she understands the risks of leaving without further workup which were discussed with the patient that I had suspicion this could be secondary to alcohol withdrawal and if it is true she has not been drinking alcohol, it could be secondary to medication such as the opiates that she has been given and she should stay for further evaluation, monitoring, and workup. The patient again was able to state the risks of going home such as severe disability, severe illness, or . She states that she will come back if her symptoms worsened. Her agrees to take her home and feels that she is at her baseline and currently throughout our conversation had denied any other hallucinations. The seems to be reliable and reasonable. I do feel the patient has capacity to make this decision and was able to state clear understanding of my concerns and the risks and what her followup would be. I did discuss this case with psychiatrist, Dr. Tineo over the phone and he was not able to come and assess the patient. However, we did discuss my assessment and he believes that she has capacity with her being reliable that she could sign out against medical advice. I again discussed this with the patient and reviewed the risks and she and her signed the AMA form. The patient was sent home. The patient's ammonia did come back normal. Either the patient is starting to withdrawal or it is possible she had a reaction from the opiates. Her other labs such as elevated bili, LFTs, amylase and lipase are all trending down. Clinically, the patient appears to be doing really well. It is unclear exactly why she was having some mild hallucination and again this could be from the opiates. TIME SPENT: Approximately 90 minutes were spent on this patient interaction along with assessment, discussing the plan and my recommendations with the patient and her . BROOKLYNN NAVARRETE, CERTIFIED PERSONAL TRAINER [id number]/CPS #: [id number] CHERRI
== END 2018-10-07 16:10 | disposition left against medical advice (07) | DRG 282 ==
LOC: ED 06:44 → SSU 12:14 → OBSVTOIN 10-06 11:20
PROVIDERS: ADMIT Pediatrics; ATTEND Internal Medicine
DX: K85.20 Alcohol induced acute pancreatitis without necrosis or infection (principal); R44.3 Hallucinations, unspecified; R74.0 Nonspecific elevation of levels of transaminase and lactic acid dehydrogenase [LDH]; K76.0 Fatty (change of) liver, not elsewhere classified; F17.210 Nicotine dependence, cigarettes, uncomplicated; Z98.84 Bariatric surgery status; Z82.49 Family history of ischemic heart disease and other diseases of the circulatory system; Z82.3 Family history of stroke
CPT/HCPCS: 36415; 74177; 80048; 80053; 80061; 80076; 80320; 82140; 82150; 83690; 85025; 86140; 93005; 99283; A9270-GY; G0378; G0480; J1170; J2270; J2405; J2765; J3010; Q9967

== ENCOUNTER 2020-05-31 11:57 | Inpatient (IN) ==
[2020-05-31] MEDS ORDERED: Lactated Ringers 1000 ml BAG 1,000 ML IV ONE ×2 (13:36→17:02)
[2020-05-31] MEDS ORDERED: Buffered Lidocaine 1% SYRIN 1 ml INTRADERM ONE (13:36)
[2020-05-31] MEDS ORDERED: Oxytocin in LR 20 UNITS/1,000 ML BAG IVPB SCH ×2 (14:00→18:00)
[2020-05-31] MEDS ORDERED: Lactated Ringers 1000 ml BAG 1,000 ML IV SCH ×3 (14:00→18:00)
[2020-05-31 14:11] LABS: ABS Eosinophils 0.1 10^3/ul (0-0.6); ABS Lymphocytes 3.1 10^3/ul (1.0-4.8); ABS Monocytes 0.8 10^3/ul (0-0.8); ABS Neutrophils 9.5 10^3/ul (1.5-7.7); Eosinophil % 0.6 %; Hematocrit 30 % (35-47); Lymphocyte % 22.6 %; Mean Corpuscular HGB Conc 33 g/dL (31-36); Mean Corpuscular Hemoglobin 27 pg (27-31); Mean Corpuscular Volume 82 fL (80-97); Mean Platelet Volume 8.3 fL (7.4-10.4); Platelet Count 296 10^3/uL (150-450); Red Blood Count 3.72 10^6 /uL (3.70-4.87); Red Cell Distribution Width 14 % (10-15); White Blood Count 13.5 10^3/uL (3.5-10.8)
[2020-05-31] MEDS ORDERED: OBEPIDURAL 250 ML EPIDURAL ONE (14:26)
[2020-05-31 14:40] LABS: Urine Benzodiazepine Screen None Detected (None Detect); Urine Cannabinoids Screen Presumptive Positive (None Detect); Urine Opiates Screen None Detected (None Detect)
[2020-05-31] MEDS ORDERED: Sodium Citrate/Citric Acid LIQ 15 ML UDC PO PRN (17:02)
[2020-05-31] MEDS ORDERED: EPHEDrine (Pressors) 50 MG/ML VIAL IV PUSH PRN (17:02)
[2020-05-31] MEDS ORDERED: Phenylephrine 40 mcg/mL 10mL (400mcg) SYRINGE IV PUSH PRN (17:02)
[2020-05-31] MEDS ORDERED: Dibucaine 1% OINT 28.35 GM TUBE PR PRN (17:59)
[2020-05-31] MEDS ORDERED: Witch Hazel PAD JAR TOPICAL PRN (17:59)
[2020-05-31] MEDS ORDERED: OBEPIDURAL 250 ML EPIDURAL SCH (18:00)
[2020-06-01 09:04] LABS: ABS Eosinophils 0.1 10^3/ul (0-0.6); ABS Lymphocytes 2.6 10^3/ul (1.0-4.8); ABS Monocytes 1.1 10^3/ul (0-0.8); ABS Neutrophils 8.7 10^3/ul (1.5-7.7); Eosinophil % 0.7 %; Hematocrit 31 % (35-47); Hemoglobin 10.1 g/dL (12.0-16.0); Lymphocyte % 20.7 %; Mean Corpuscular HGB Conc 33 g/dL (31-36); Mean Corpuscular Hemoglobin 27 pg (27-31); Mean Corpuscular Volume 82 fL (80-97); Mean Platelet Volume 8.7 fL (7.4-10.4); Platelet Count 275 10^3/uL (150-450); Red Blood Count 3.77 10^6 /uL (3.70-4.87); Red Cell Distribution Width 14 % (10-15); White Blood Count 12.6 10^3/uL (3.5-10.8)
[2020-06-01 15:57] VITALS: BP 128/78
[2020-06-01] MEDS ORDERED: Influenza VAC *QUAD* 2020-21* 0.5 ML SYRINGE IM ONE (16:00)
== END 2020-06-01 16:20 | disposition home or self-care (01) | DRG 560 ==
LOC: MCHOBOUT 11:57 → MCHOB 13:05
PROVIDERS: ADMIT Obstetrics & Gynecology; ATTEND Obstetrics & Gynecology

== ENCOUNTER 2020-06-18 12:03 | Observation (INO) ==
[2020-06-18] MEDS ORDERED: NS 0.9% 1000 ml BAG 1,000 ML IV ONE (15:31)
[2020-06-18 16:02] LABS: ABS Lymphocytes 1.1 10^3/ul (1.0-4.8); ABS Monocytes 0.9 10^3/ul (0-0.8); ABS Neutrophils 12.1 10^3/ul (1.5-7.7); Eosinophil % 0.1 %; Hematocrit 37 % (35-47); Lymphocyte % 7.6 %; Mean Corpuscular HGB Conc 33 g/dL (31-36); Mean Corpuscular Hemoglobin 26 pg (27-31); Mean Corpuscular Volume 80 fL (80-97); Mean Platelet Volume 8.2 fL (7.4-10.4); Platelet Count 404 10^3/uL (150-450); Red Blood Count 4.62 10^6 /uL (3.70-4.87); Red Cell Distribution Width 14 % (10-15); White Blood Count 14.2 10^3/uL (3.5-10.8)
[2020-06-18 16:04] LABS: Urine Appearance Cloudy; Urine Bilirubin Negative (Negative); Urine Blood 3+ (Negative); Urine Color Yellow; Urine Glucose Negative (Negative); Urine Ketones Negative (Negative); Urine Nitrite Negative (Negative); Urine Protein Negative (Negative); Urine Urobilinogen Negative (Negative)
[2020-06-18 16:24] LABS: Albumin 3.8 g/dL (3.2-5.2); Albumin/Globulin Ratio 1.4 (1-3); BUN/Creatinine Ratio 15.8 (8-20); Calcium 9.1 mg/dL (8.6-10.3); EGFR African American 147.8 (>60); EGFR Non-African American 122.2 (>60); Globulin 2.8 g/dL (2-4); Magnesium 1.6 mg/dL (1.9-2.7); Potassium 3.8 mmol/L (3.5-5.0); Total Bilirubin 0.5 mg/dL (0.2-1.0); Total Protein 6.6 g/dL (6.4-8.9)
[2020-06-18 16:27] LABS: Urine Bacteria Absent (Absent); Urine Red Blood Cell 3+(>10/hpf) (Absent); Urine Squamous Epithelial Cell Present (Absent); Urine White Blood Cell 3+(>20/hpf) (Absent)
[2020-06-18] MEDS ORDERED: cefTRIAXone 1 gm/50 mL NS BAG 1 GM/50 ML BAG IV ONE (16:43)
[2020-06-18] MEDS ORDERED: Morphine 4 MG/ML VIAL (1 ml) IV ONE ×2 (16:48→19:58)
[2020-06-18] MEDS ORDERED: Magnesium Sulfate 2 gm BAG 2 GM/50 ML BAG IVPB ONE (16:49)
[2020-06-18] MEDS ORDERED: Iohexol 300 (CONTRAST) 10 ML SDV IV ONE (16:52)
[2020-06-18] MEDS ORDERED: Al Hydrox/Mg Hydrox/Simet LIQ 30 ML UDC PO ONE (18:47)
[2020-06-18] MEDS ORDERED: Famotidine IV 10 MG/ML 2 ml VIAL (20 mg) IV SLOW PU ONE (18:47)
[2020-06-18] MEDS ORDERED: ceFAZolin 2 GM PREMIX 2 GM/50 ML BAG IVPB ONE (19:59)
[2020-06-18] MEDS ORDERED: Ondansetron 4 mg VIAL 2 MG/ML 2 ml VIAL IV ONE (20:16)
[2020-06-18] MEDS ORDERED: fentaNYL 250 mcg/5 ml 50 MCG/ML 5 ml VIAL (250 MCG) ONE (20:35)
[2020-06-18] MEDS ORDERED: Rocuronium 50 mg VIAL 10 mg/ml 5 ml VIAL (50 mg) ONE (20:35)
[2020-06-18] MEDS ORDERED: Midazolam 2 mg/2 ml VIAL 1 mg/ml 2 ml VIAL (2 mg) ONE (20:35)
[2020-06-18] MEDS ORDERED: Propofol 10 MG/ML 20 ML BTL ONE (20:37)
[2020-06-18] MEDS ORDERED: Ondansetron 4 mg VIAL 2 MG/ML 2 ml VIAL ONE ×3 (20:43→23:22)
[2020-06-18] MEDS ORDERED: Bupivacaine 0.25% SDV 30 ML ONE (20:47)
[2020-06-18] MEDS ORDERED: ceFAZolin 2 GM PREMIX 2 GM/50 ML BAG ONE (20:57)
[2020-06-18] MEDS ORDERED: Dexamethasone IV 4 MG/ML VIAL 1 ml VIAL ONE (21:34)
[2020-06-18] MEDS ORDERED: HYDROmorphone 1 MG/1 ML SYRINGE IV PRN (21:34)
[2020-06-18] MEDS ORDERED: Levalbuterol HFA INHALER MDI ONE (21:34)
[2020-06-18] MEDS ORDERED: Naloxone 0.4 mg VIAL 0.4 mg/ml 1 ml VIAL IV PRN (21:34)
[2020-06-18] MEDS ORDERED: Ondansetron 4 mg VIAL 2 MG/ML 2 ml VIAL IV PRN ×2 (21:34→22:32)
[2020-06-18] MEDS ORDERED: HYDROmorphone 1 MG/1 ML SYRINGE ONE (21:45)
[2020-06-18] MEDS ORDERED: Sugammadex 500 MG/5 ML 5 ml VIAL IV PUSH ONE (21:49)
[2020-06-18] MEDS ORDERED: fentaNYL 100 mcg/2 ml 50 MCG/ML VIAL ONE (22:47)
[2020-06-18] MEDS: fentaNYL 100 mcg/2 ml 50 MCG/ML VIAL IV PRN ×2 (22:48→22:55)
[2020-06-18] MEDS ORDERED: Lactated Ringers 1000 ml BAG 1,000 ML IV SCH (23:00)
[2020-06-19] MEDS ORDERED: Prochlorperazine 5 mg/ml 2 ml VIAL (10 mg) IV PRN (00:05)
[2020-06-19] MEDS: Morphine 2 MG/ML SYRINGE IV PRN ×2 (03:31→07:27)
[2020-06-19 05:36] LABS: ABS Lymphocytes 0.9 10^3/ul (1.0-4.8); ABS Monocytes 0.3 10^3/ul (0-0.8); ABS Neutrophils 8.7 10^3/ul (1.5-7.7); Hematocrit 33 % (35-47); Hemoglobin 10.7 g/dL (12.0-16.0); Mean Corpuscular HGB Conc 33 g/dL (31-36); Mean Corpuscular Hemoglobin 26 pg (27-31); Mean Corpuscular Volume 81 fL (80-97); Mean Platelet Volume 8.8 fL (7.4-10.4); Platelet Count 389 10^3/uL (150-450); Red Blood Count 4.07 10^6 /uL (3.70-4.87); Red Cell Distribution Width 14 % (10-15); White Blood Count 9.9 10^3/uL (3.5-10.8)
[2020-06-19 05:47] LABS: BUN/Creatinine Ratio 10.6 (8-20); Calcium 8.9 mg/dL (8.6-10.3); EGFR African American 184.7 (>60); EGFR Non-African American 152.6 (>60); Potassium 4.5 mmol/L (3.5-5.0)
[2020-06-19] MEDS: oxyCODONE/Acetamin 5/325 mg TAB PO PRN ×3 (08:13→16:36)
[2020-06-19] MEDS ORDERED: cefTRIAXone 1 gm/50 mL NS BAG 1 GM/50 ML BAG IVPB SCH (11:30)
[2020-06-19 15:57] VITALS: BP 118/60
== END 2020-06-19 17:00 | disposition home or self-care (01) ==
LOC: ED 12:03 → SSU 12:03 → ED 20:53
PROVIDERS: ADMIT Surgery Surgical Critical Care; ATTEND Surgery Surgical Critical Care